=== PATIENT | female | born 1975 | race Caucasian/White ===

== ENCOUNTER 2024-04-23 13:27 | Inpatient (IN) | payer OTHER ==
--- NOTE | 2024-04-23 14:13 | ED ---
General Adult HPI - General Chief complaint: Shortness of Breath Stated complaint: Hypotension,Hypoxia Time Seen by Provider: 04/23/24 13:47 Source: patient, EMS, RN notes reviewed, old records reviewed Mode of arrival: EMS Limitations: altered mental status - History of Present Illness Initial comments: 48-year-old female presents from the [place] [facility] with hypoxia, lethargy, hypotension. History is limited. 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 She apparently was hypoxic and has had issues with chronic respiratory failure in the past. Patient herself does report cough. She denies pain complaints. Patient is bedbound at baseline. No reported fever. - Related Data Allergies Allergy/AdvReac Type Severity Reaction Status Date / Time egg Allergy Unknown Verified 04/23/24 13:45 morphine Allergy Unknown Verified 04/23/24 13:45 onion Allergy Unknown Verified 04/23/24 13:45 Review of Systems ROS Statement: Those systems with pertinent positive or pertinent negative responses have been documented in the HPI. ROS Other: All systems not noted in ROS Statement are negative. Past Medical History Past Medical History: Diabetes Mellitus, Respiratory Disorder, Thyroid Disorder Additional Past Medical History / Comment(s): Type 2 Diabetes, Hypothyrodism, Peripheral Vascular Disease, Cellulitis of right lower limb, Acute & Chronic Hypoxia, Chronic respiratory failure (3.5L Oxygen baseline) History of Any Multi-Drug Resistant Organisms: None Reported Past Surgical History: Orthopedic Surgery Additional Past Surgical History / Comment(s): Left leg acquired absence above knee Past Psychological History: No Psychological Hx Reported Smoking Status: Former smoker Past Alcohol Use History: None Reported Past Drug Use History: None Reported Course Vital Signs 04/23/24 04/23/24 04/23/24 13:33 14:25 14:27 Temperature 97.5 F L Pulse Rate 99 Respiratory 28 H Rate Blood Pressure 128/86 O2 Sat by Pulse 98 84 L 71 L Oximetry Fraction of Inspired Oxygen (FIO2) 04/23/24 04/23/24 04/23/24 14:29 14:30 14:33 Temperature Pulse Rate 102 H Respiratory 28 H 30 H Rate Blood Pressure 123/72 O2 Sat by Pulse 91 L 94 L Oximetry Fraction of Inspired Oxygen (FIO2) 04/23/24 04/23/24 04/23/24 14:54 15:10 15:12 Temperature 97.6 F Pulse Rate 105 H 107 H 105 H Respiratory 26 H Rate Blood Pressure 110/69 O2 Sat by Pulse 92 L Oximetry Fraction of Inspired Oxygen (FIO2) 04/23/24 15:26 Temperature Pulse Rate Respiratory Rate Blood Pressure O2 Sat by Pulse Oximetry Fraction of 50 Inspired Oxygen (FIO2) Medical Decision Making - Medical Decision Making Was pt. sent in by a medical professional or institution (, JODY, IRONWORKER APPRENTICE, urgent care, hospital, or [place] [facility]...) When possible be specific @ -Symptoms from the [place] [facility] for hypoxia Did you speak to anyone other than the patient for history (EMS, parent, family, police, friend...)? What history was obtained from this source @ -No Did you review nursing and triage notes (agree or disagree)? Why? @ -I reviewed and agree with nursing and triage notes Were old charts reviewed (outside hosp., previous admission, EMS record, old EKG , old radiological studies, urgent care reports/EKG's, [place] [facility] records)? Report findings @ -No old charts were reviewed Differential Dyspnea: Coronary syndrome, arrhythmia, tamponade, asthma, COPD, pulmonary embolism, pneumonia, pneumothorax, pulmonary effusion, anaphylaxis, diabetic ketoacidosis, flailed chest, pulmonary contusion, diaphragmatic rupture, anemia, neuromuscular, this is not meant to be an all-inclusive list. EKG interpreted by me (3pts min.). @Sinus tachycardia rate of 101, LA interval 146, QRS duration 101, QTc [address] segment elevation X-rays interpreted by me (1pt min.). @Large cardiomegaly and left-sided effusion on single view chest x-ray, limited by body habitus CT interpreted by me (1pt min.). @ -None done U/S interpreted by me (1pt. min.). @ -None done What testing was considered but not performed or refused? (CT, X-rays, U/S, labs)? Why? @ -None What meds were considered but not given or refused? Why? @ -None Did you discuss the management of the patient with other professionals (professionals i.e. , JODY, IRONWORKER APPRENTICE, lab, RT, psych nurse, case management social worker, state epidemiologist, teacher, strategic debriefing officer, nurse case management)? Give summary @ -[Yes, EM and cardiology Dr. Silva Was smoking cessation discussed for >3mins.? @ -No Was critical care preformed (if so, how long)? @ -Yes, 35 minutes Were there social determinants of health that impacted care today? How? (Homel essness, low income, unemployed, alcoholism, drug addiction, transportation, low edu. Level, literacy, decrease access to med. care, group home, rehab)? @ -No Was there de-escalation of care discussed even if they declined (Discuss DNR or withdrawal of care, Hospice)? DNR status @ -No What co-morbidities impacted this encounter? (DM, HTN, Smoking, COPD, CAD, Cancer, CVA, ARF, Chemo, Hep., AIDS, mental health diagnosis, sleep apnea, morbid obesity)? @ -Diabetes, hypertension, CHF Was patient admitted / discharged? Hospital course, mention meds given and route, prescriptions, significant lab abnormalities, going to OR and other pertinent info. @ -48-year-old female with significant past medical history, bedbound, [facility] patient presenting with hypoxia. Patient has very poor ventilation and concern for obesity associated hypoventilation. She requires significant supplemental oxygen at the onset of evaluation and is ultimately placed on BiPAP for respiratory support. She has hypoxia with hypercapnia. Additionally she has chest x-ray evidence of CHF with a significantly elevated BNP. And an elevated troponin. She is placed on heparin for the elevated troponin and concern for non-ST segment elevated [place]. She is given Lasix as well as treatment for hyperkalemia in the emergency department. She will be continued on BiPAP for respiratory support. Cardiology placed on consult and they have been contacted. Echo has been ordered. Undiagnosed new problem with uncertain prognosis? @ -No Drug Therapy requiring intensive monitoring for toxicity (Heparin, Nitro, Insulin, Cardizem)? @ -No Were any procedures done? @ -No Diagnosis/symptom? @ -CHF, obesity associated hypoventilation, NSTEMI Acute, or Chronic, or Acute on Chronic? @ -Acute on chronic Uncomplicated (without systemic symptoms) or Complicated (systemic symptoms)? @Complicated Side effects of treatment? @ -No Exacerbation, Progression, or Severe Exacerbation? @ -No Poses a threat to life or bodily function? How? (Chest pain, [place], [place], pneumonia, PE, COPD, DKA, ARF, appy, cholecystitis, CVA, Diverticulitis, Homicidal, Suicidal, threat to staff... and all critical care pts) @ -Yes, CHF, NSTEMI, respiratory failure - Lab Data Result diagrams: 04/23/24 14:26 04/23/24 14:26 Lab Results 04/23/24 04/23/24 04/23/24 Range/Units 14:26 14:26 14:26 WBC 9.7 (3.8-10.6) k/uL RBC 3.12 L (3.80-5.40) m/uL Hgb 10.2 L (11.4-16.0) gm/dL Hct 33.7 L (34.0-46.0) % MCV 108.0 H (80.0-100.0) fL MCH 32.5 (25.0-35.0) pg MCHC 30.1 L (31.0-37.0) g/dL RDW 19.0 H (11.5-15.5) % Plt Count 273 (150-450) k/uL MPV 7.5 Neutrophils % (Manual) 78 % Band Neuts % (Manual) 2 % Lymphocytes % (Manual) 9 % Monocytes % (Manual) 10 % Eosinophils % (Manual) 1 % Basophils % (Manual) 1 % Metamyelocytes % 1 % Neutrophils # (Manual) 7.70 (1.3-7.7) k/uL Lymphocytes # (Manual) 0.87 L (1.0-4.8) k/uL Monocytes # (Manual) 0.97 (0-1.0) k/uL Eosinophils # (Manual) 0.10 (0-0.7) k/uL Basophils # (Manual) 0.10 (0-0.2) k/uL Metamyelocytes # (Man) 0.10 H (0) k/uL Nucleated RBCs 3 H (0-0) /100 WBC Manual Slide Review Performed Hypochromasia Marked Poikilocytosis Slight Anisocytosis Slight Macrocytosis Marked A PT 12.0 (10.0-12.5) sec INR 1.1 (<1.2) APTT 22.4 (22.0-30.0) sec VBG pH (7.31-7.41) VBG pCO2 (37-51) mmHg VBG HCO3 (24-28) mmol/L Sodium 136 L (137-145) mmol/L Potassium 7.0 H* (3.5-5.1) mmol/L Chloride 102 (98-107) mmol/L Carbon Dioxide 27 (22-30) mmol/L Anion Gap 7 mmol/L BUN 9 (7-17) mg/dL Creatinine 0.90 (0.52-1.04) mg/dL Est GFR (CKD-EPI)AfAm 89 (>60 ml/min/1.73 sqM) Est GFR (CKD-EPI)NonAf 77 (>60 ml/min/1.73 sqM) Glucose 126 H (74-99) mg/dL Plasma Lactic Acid Calixto (0.7-2.0) mmol/L Calcium 9.8 (8.4-10.2) mg/dL Magnesium 1.9 (1.6-2.3) mg/dL Total Bilirubin 0.4 (0.2-1.3) mg/dL AST 47 H (14-36) U/L ALT 50 H (4-34) U/L Alkaline Phosphatase 98 (38-126) U/L Troponin I (0.000-0.034) ng/mL NT-Pro-B Natriuret Pep 75955 pg/mL Total Protein 7.4 (6.3-8.2) g/dL Albumin 4.1 (3.5-5.0) g/dL Influenza Type A (PCR) (Not Detectd) Influenza Type B (PCR) (Not Detectd) RSV (PCR) (Not Detectd) SARS-CoV-2 (PCR) (Not Detectd) 04/23/24 04/23/24 04/23/24 Range/Units 14:26 14:26 14:26 WBC (3.8-10.6) k/uL RBC (3.80-5.40) m/uL Hgb (11.4-16.0) gm/dL Hct (34.0-46.0) % MCV (80.0-100.0) fL MCH (25.0-35.0) pg MCHC (31.0-37.0) g/dL RDW (11.5-15.5) % Plt Count (150-450) k/uL MPV Neutrophils % (Manual) % Band Neuts % (Manual) % Lymphocytes % (Manual) % Monocytes % (Manual) % Eosinophils % (Manual) % Basophils % (Manual) % Metamyelocytes % % Neutrophils # (Manual) (1.3-7.7) k/uL Lymphocytes # (Manual) (1.0-4.8) k/uL Monocytes # (Manual) (0-1.0) k/uL Eosinophils # (Manual) (0-0.7) k/uL Basophils # (Manual) (0-0.2) k/uL Metamyelocytes # (Man) (0) k/uL Nucleated RBCs (0-0) /100 WBC Manual Slide Review Hypochromasia Poikilocytosis Anisocytosis Macrocytosis PT (10.0-12.5) sec INR (<1.2) APTT (22.0-30.0) sec VBG pH 7.20 L* (7.31-7.41) VBG pCO2 72 H* (37-51) mmHg VBG HCO3 28 (24-28) mmol/L Sodium (137-145) mmol/L Potassium (3.5-5.1) mmol/L Chloride (98-107) mmol/L Carbon Dioxide (22-30) mmol/L Anion Gap mmol/L BUN (7-17) mg/dL Creatinine (0.52-1.04) mg/dL Est GFR (CKD-EPI)AfAm (>60 ml/min/1.73 sqM) Est GFR (CKD-EPI)NonAf (>60 ml/min/1.73 sqM) Glucose (74-99) mg/dL Plasma Lactic Acid Calixto 1.7 (0.7-2.0) mmol/L Calcium (8.4-10.2) mg/dL Magnesium (1.6-2.3) mg/dL Total Bilirubin (0.2-1.3) mg/dL AST (14-36) U/L ALT (4-34) U/L Alkaline Phosphatase (38-126) U/L Troponin I 0.177 H* (0.000-0.034) ng/mL NT-Pro-B Natriuret Pep pg/mL Total Protein (6.3-8.2) g/dL Albumin (3.5-5.0) g/dL Influenza Type A (PCR) (Not Detectd) Influenza Type B (PCR) (Not Detectd) RSV (PCR) (Not Detectd) SARS-CoV-2 (PCR) (Not Detectd) 04/23/24 Range/Units 14:26 WBC (3.8-10.6) k/uL RBC (3.80-5.40) m/uL Hgb (11.4-16.0) gm/dL Hct (34.0-46.0) % MCV (80.0-100.0) fL MCH (25.0-35.0) pg MCHC (31.0-37.0) g/dL RDW (11.5-15.5) % Plt Count (150-450) k/uL MPV Neutrophils % (Manual) % Band Neuts % (Manual) % Lymphocytes % (Manual) % Monocytes % (Manual) % Eosinophils % (Manual) % Basophils % (Manual) % Metamyelocytes % % Neutrophils # (Manual) (1.3-7.7) k/uL Lymphocytes # (Manual) (1.0-4.8) k/uL Monocytes # (Manual) (0-1.0) k/uL Eosinophils # (Manual) (0-0.7) k/uL Basophils # (Manual) (0-0.2) k/uL Metamyelocytes # (Man) (0) k/uL Nucleated RBCs (0-0) /100 WBC Manual Slide Review Hypochromasia Poikilocytosis Anisocytosis Macrocytosis PT (10.0-12.5) sec INR (<1.2) APTT (22.0-30.0) sec VBG pH (7.31-7.41) VBG pCO2 (37-51) mmHg VBG HCO3 (24-28) mmol/L Sodium (137-145) mmol/L Potassium (3.5-5.1) mmol/L Chloride (98-107) mmol/L Carbon Dioxide (22-30) mmol/L Anion Gap mmol/L BUN (7-17) mg/dL Creatinine (0.52-1.04) mg/dL Est GFR (CKD-EPI)AfAm (>60 ml/min/1.73 sqM) Est GFR (CKD-EPI)NonAf (>60 ml/min/1.73 sqM) Glucose (74-99) mg/dL Plasma Lactic Acid Calixto (0.7-2.0) mmol/L Calcium (8.4-10.2) mg/dL Magnesium (1.6-2.3) mg/dL Total Bilirubin (0.2-1.3) mg/dL AST (14-36) U/L ALT (4-34) U/L Alkaline Phosphatase (38-126) U/L Troponin I (0.000-0.034) ng/mL NT-Pro-B Natriuret Pep pg/mL Total Protein (6.3-8.2) g/dL Albumin (3.5-5.0) g/dL Influenza Type A (PCR) Not Detected (Not Detectd) Influenza Type B (PCR) Not Detected (Not Detectd) RSV (PCR) Not Detected (Not Detectd) SARS-CoV-2 (PCR) Not Detected (Not Detectd) Critical Care Time Critical Care Time: Yes Total Critical Care Time: 35 Disposition Clinical Impression: Congestive heart failure, NSTEMI (non-ST elevated myocardial infarction), Respiratory failure Disposition: ADMITTED IP TO THIS HOSP Condition: Serious Is patient prescribed a controlled substance at d/c from ED?: No Referrals: Luz Howard DO [Primary Care Provider] - 1-2 days Time of Disposition: 15:33
[2024-04-23 14:39] LABS: Anisocytosis Slight; HCT 33.7 % (34.0-46.0); HGB 10.2 gm/dL (11.4-16.0); Hypochromasia Marked; MCH 32.5 pg (25.0-35.0); MCHC 30.1 g/dL (31.0-37.0); Macrocytosis Marked; Mean Platelet Volume 7.5; Platelet Count 273 k/uL (150-450); Poikilocytosis Slight; RBC 3.12 m/uL (3.80-5.40)
[2024-04-23 14:43] LABS: VBG PH 7.2 (7.31-7.41)
[2024-04-23] MEDS: ALBUTEROL NEBULIZED 2.5 MG/3 ML INHALATION STA (14:53)
[2024-04-23 14:54] LABS: ALT 50 U/L (4-34); AST 47 U/L (14-36); African American GFR (CKD) 89 (>60 ml/min/1.73 sqM); Albumin 4.1 g/dL (3.5-5.0); Alkaline Phosphatase 98 U/L (38-126); Anion Gap 7 mmol/L; Blood Urea Nitrogen 9 mg/dL (7-17); Calcium 9.8 mg/dL (8.4-10.2); Carbon Dioxide 27 mmol/L (22-30); Chloride 102 mmol/L (98-107); Glucose 126 mg/dL (74-99); Magnesium 1.9 mg/dL (1.6-2.3); Non-African American GFR(CKD) 77 (>60 ml/min/1.73 sqM); Sodium 136 mmol/L (137-145); Total Bilirubin 0.4 mg/dL (0.2-1.3); Total Protein 7.4 g/dL (6.3-8.2)
[2024-04-23] MEDS: IPRATROPIUM 0.5 MG/2.5 ML NEBU INHALATION STA (14:54)
[2024-04-23 14:55] LABS: INR 1.1 (<1.2); Partial Thromboplastin Time 22.4 sec (22.0-30.0)
[2024-04-23 15:02] LABS: NT-Pro-B-Type Natriuretic Pept 20000 pg/mL
[2024-04-23] MEDS: SODIUM CHLORIDE 0.9% 500 ML 500 ML IV STA (15:02)
--- NOTE | 2024-04-23 15:06 | XR ---
EXAMINATION TYPE: XR chest 1V portable DATE OF EXAM: 04/23/2024 COMPARISON: NONE CLINICAL INDICATION: Female, 48 years old with history of angelo; , TECHNIQUE: XR chest 1V portable views of the chest. FINDINGS: Markedly enlarged and there is a diffuse interstitial pattern with bilateral infiltrate and pleural e ffusion. Osseous structures grossly intact. No pneumothorax. IMPRESSION: 1. Cardiomegaly correlate for mild CHF with small lateral effusions. Underlying pneumonia not exclude d. [facility], , 04/23/2024 3:03 PM
[2024-04-23 15:15] LABS: Band Neutrophils % 2 %; Lymphocytes # (M) 0.87 k/uL (1.0-4.8); Metamyelocytes % 1 %; Monocytes # (M) 0.97 k/uL (0-1.0); Neutrophils % (M) 78 %; Nucleated Red Blood Cells 3 /100 WBC (0-0); Total Cells Counted 200; WBC 9.7 k/uL (3.8-10.6)
[2024-04-23] MEDS ORDERED: NALOXONE 0.4 MG/ML 1 ML VIAL IV PRN (15:28)
[2024-04-23] MEDS: FUROSEMIDE 10 MG/ML 4 ML VIAL IV STA (15:54)
[2024-04-23] MEDS: DEXTROSE 50% SYRINGE 50 ML IVP ONE (15:59)
[2024-04-23] MEDS: INSULIN REGULAR 100 UNIT/ML VIAL (IV) IV ONE ×2 (16:05→22:52)
[2024-04-23] MEDS: CALCIUM GLUCONATE IN NACL 1 GM in SALINE 1 100ML.BAG IVPB ONE (16:07)
[2024-04-23] MEDS: HEPARIN SODIUM 1,000 UN/ML (10ML VL) IV ONE (16:27)
[2024-04-23] MEDS: HEPARIN SOD,PORK IN 0.45% NACL 25,000 UNIT in 0.45% NACL 1 250ML.BAG IV SCH (16:29)
[2024-04-23] MEDS: SODIUM ZIRCONIUM CYCLOSILICATE 10 GM PACKET PO ONE (17:07)
[2024-04-23] MEDS: FUROSEMIDE 10 MG/ML 4 ML VIAL IV SCH (21:10)
[2024-04-23] MEDS: HYDROcodone/APAP 5-325MG 1 EACH TAB PO PRN (21:10)
[2024-04-23] MEDS: DEXTROSE 50% SYRINGE 50 ML IVP STA (22:52)
[2024-04-23] MEDS: ONDANSETRON 4 MG/2 ML VIAL IVP PRN (22:54)
[2024-04-23] MEDS: HYDROmorphone 0.5 MG/0.5 ML SYRINGE IVP PRN (22:55)
[2024-04-24] MEDS: HEPARIN SODIUM 1,000 UN/ML (10ML VL) IV PRN (01:53)
[2024-04-24] MEDS: HYDROmorphone 0.5 MG/0.5 ML SYRINGE IVP PRN (04:10)
[2024-04-24 08:12] LABS: INR 1.2 (<1.2); Prothrombin Time 12.6 sec (10.0-12.5)
[2024-04-24 08:16] LABS: Partial Thromboplastin Time 21.6 sec (22.0-30.0)
[2024-04-24 08:17] LABS: Anisocytosis Slight; HCT 31.8 % (34.0-46.0); HGB 9.5 gm/dL (11.4-16.0); Hypochromasia Marked; MCH 32.1 pg (25.0-35.0); MCHC 29.8 g/dL (31.0-37.0); MCV 107.6 fL (80.0-100.0); Macrocytosis Marked; Mean Platelet Volume 7.8; Platelet Count 231 k/uL (150-450); Poikilocytosis Slight; RBC 2.96 m/uL (3.80-5.40); RDW 19.2 % (11.5-15.5)
[2024-04-24 08:19] LABS: ALT 40 U/L (4-34); AST 40 U/L (14-36); African American GFR (CKD) >90 (>60 ml/min/1.73 sqM); Albumin 3.7 g/dL (3.5-5.0); Alkaline Phosphatase 89 U/L (38-126); Anion Gap 10 mmol/L; Blood Urea Nitrogen 10 mg/dL (7-17); Calcium 9.6 mg/dL (8.4-10.2); Carbon Dioxide 27 mmol/L (22-30); Chloride 100 mmol/L (98-107); Glucose 101 mg/dL (74-99); Non-African American GFR(CKD) 85 (>60 ml/min/1.73 sqM); Potassium 5.1 mmol/L (3.5-5.1); Sodium 137 mmol/L (137-145); Total Bilirubin 0.3 mg/dL (0.2-1.3); Total Protein 6.7 g/dL (6.3-8.2)
[2024-04-24] MEDS: ACETAMINOPHEN TAB 325 MG TAB PO PRN (08:42)
[2024-04-24] MEDS ORDERED: DEXTROSE 50% SYRINGE 50 ML IVP PRN ×2 (09:24)
[2024-04-24] MEDS ORDERED: NON FORMULARY DRUG (Acetaminophen [Tylenol 8 Hour] 650 MG Tablet) PO PRN (09:24)
[2024-04-24 09:30] LABS: Band Neutrophils % 1 %; Basophils # (M) 0.08 k/uL (0-0.2); Eosinophils # (M) 0.38 k/uL (0-0.7); Lymphocytes # (M) 1.29 k/uL (1.0-4.8); Metamyelocytes # (M) 0.15 k/uL (0); Metamyelocytes % 2 %; Monocytes # (M) 0.76 k/uL (0-1.0); Myelocytes # (M) 0.08 k/uL (0); Myelocytes % 1 %; Neutrophils % (M) 65 %; Nucleated Red Blood Cells 3 /100 WBC (0-0); Total Cells Counted 200; WBC 7.6 k/uL (3.8-10.6)
[2024-04-24 09:31] LABS: Polychromasia Present
[2024-04-24 10:54] LABS: Glucose,Whole Blood 136 mg/dL (70-110)
--- NOTE | 2024-04-24 12:05 | P.CNPUL ---
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 The patient was admitted on February 11, 2024 to [facility] and was 47 days there most of which was in the intensive care unit. She was then transferred to [facility] in [place] for 2-1/2 weeks. She then was readmitted and intubated for 14 days and had a trachostomy tube placement for 5 days and it was subsequently dislodged and left out according to the patient's sister who is at the bedside. From there she was transferred to [facility]. She was brought here to the emergency room yesterday after being found hypoxic, lethargic and hypotensive. She did have episodes of vomiting as well. Chest x- ray reveals cardiomegaly with mild congestive heart failure and small bilateral effusions. White count 7.6. Hemoglobin 9.5. Platelets 231. INR 1.2. D-dimer 1.19. Sodium 137. Initial potassium 7.0. Currently 5.1. She did receive Lokelma. Bicarb 27. BUN 10. Creatinine 0.83. Glucose 101. AST 40. ALT 40. Troponin 0.177, 0.226, 0.244. proBNP 20,000. Viral screen is negative. She has been initiated on a heparin drip. Lasix 40 mg IV every 12 hours. She is seen today in consultation in the emergency department. She has more awake and alert. She does have some nausea and vomiting. She was initiated on a BiPAP 14/6 and 50% FiO2. Slightly tachycardic. Blood pressure stable. Temperature 99.9 axillary. Procalcitonin pending. She will be initiated on Zosyn for now. Review of Systems REVIEW OF SYSTEMS: CONSTITUTIONAL: Denies any recent significant weight loss or weight gain. EYES: Denies change in vision. EARS, NOSE, MOUTH, THROAT: Denies headaches, denies sore throat. CARDIOVASCULAR: Denies chest pain, palpitations or syncopal episodes. RESPIRATORY: Positive for shortness of breath, cough, congestion no hemoptysis. GASTROINTESTINAL: Positive for nausea and vomiting. GENITOURINARY: Denies hematuria, denies infections. MUSKULOSKELETAL: Denies pain, denies swelling. INTEGUMENTARY: Denies rash, denies eczema. NEUROLOGICAL: Denies recent memory loss, no recent seizure activity. PSYCHIATRIC: Denies anxiety, denies depression. HEMATOLOGIC/LYMPHATIC: Denies anemia, denies enlarged lymph nodes. Past Medical History Past Medical History: Diabetes Mellitus, Respiratory Disorder, Thyroid Disorder Additional Past Medical History / Comment(s): Type 2 Diabetes, Hypothyrodism, Peripheral Vascular Disease, Cellulitis of right lower limb, Acute & Chronic Hypoxia, Chronic respiratory failure (3.5L Oxygen baseline) History of Any Multi-Drug Resistant Organisms: None Reported Past Surgical History: Orthopedic Surgery Additional Past Surgical History / Comment(s): Left leg acquired absence above knee Past Psychological History: No Psychological Hx Reported Smoking Status: Former smoker Past Alcohol Use History: None Reported Past Drug Use History: None Reported Medications and Allergies Home Medications Medication Instructions Recorded Confirmed Type ALPRAZolam [Xanax] 0.25 mg PO BID PRN 04/23/24 04/23/24 History Acetaminophen [Tylenol 8 Hour] 650 mg PO Q6H PRN 04/23/24 04/23/24 History Antifungal Powder(Unknown) 1 applic TOPICAL BID 04/23/24 04/23/24 History Aspirin 81 mg PO HS 04/23/24 04/23/24 History Atorvastatin [Lipitor] 20 mg PO HS@199904/23/24 04/23/24 History Insulin Glargine [Lantus Vial] 10 unit SQ HS 04/23/24 04/23/24 History Levothyroxine Sodium [Synthroid] 137 mcg PO DAILY@0500 04/23/24 04/23/24 History Melatonin 3 mg PO HS@199904/23/24 04/23/24 History Naloxone HCl 0.4 mg IM ONCE PRN 04/23/24 04/23/24 History Naloxone HCl [Narcan] 4 mg NASAL ONCE PRN 04/23/24 04/23/24 History OLANZapine ODT [ZyPREXA ZYDIS] 5 mg PO HS 04/23/24 04/23/24 History Omeprazole [PriLOSEC] 20 mg PO HS@199904/23/24 04/23/24 History Ondansetron [Zofran] 4 mg PO Q6H PRN 04/23/24 04/23/24 History PARoxetine [Paxil] 20 mg PO DAILY 04/23/24 04/23/24 History Potassium Chloride ER [K-Dur 20] 20 meq PO HS 04/23/24 04/23/24 History Simethicone [Simethicone Chew] 80 mg PO ACHS 04/23/24 04/23/24 History Sulfamethox-Tmp 800-160Mg [Bactrim 1 tab PO BID@0700,1900 04/23/24 04/23/24 History DS 800-160 mg] hydrOXYzine pamoate [Vistaril] 25 mg PO TID PRN 04/23/24 04/23/24 History lamoTRIgine [LaMICtal] 50 mg PO BID 04/23/24 04/23/24 History oxyCODONE HCL [OxyIR] 5 mg PO Q6H PRN 04/23/24 04/23/24 History tiZANidine [Zanaflex] 4 mg PO TID@0700,1300,1900 04/23/24 04/23/24 History traMADol HCL 50 mg PO Q6H PRN 04/23/24 04/23/24 History Allergies Allergy/AdvReac Type Severity Reaction Status Date / Time egg Allergy Unknown Verified 04/23/24 16:42 morphine Allergy Unknown Verified 04/23/24 16:42 onion Allergy Unknown Verified 04/23/24 16:42 Physical Exam Vitals: Vital Signs Temp Pulse Resp BP Pulse Ox FiO2 04/24/24 07:48 50 04/24/24 07:41 99.9 F H 110 H 16 112/62 98 04/24/24 06:27 112 H 16 109/48 97 50 04/24/24 05:40 112 H 16 115/54 96 50 04/24/24 05:26 50 04/24/24 03:11 106 H 16 109/63 98 50 04/24/24 02:08 111 H 16 100/43 96 04/24/24 01:14 112 H 16 116/52 95 04/24/24 00:58 50 04/24/24 00:22 120 H 18 109/62 97 04/23/24 21:58 109 H 16 133/72 90 L 04/23/24 21:08 50 04/23/24 20:09 108 H 16 118/64 93 L 04/23/24 18:10 98.9 F 105 H 20 129/76 98 04/23/24 17:04 98.7 F 103 H 14 122/73 92 L 04/23/24 16:31 102 H 16 117/77 92 L 04/23/24 16:10 98.9 F 101 H 16 118/73 92 L 04/23/24 16:04 60 04/23/24 15:53 87 L 04/23/24 15:26 50 04/23/24 15:12 97.6 F 105 H 26 H 110/69 92 L 04/23/24 15:10 107 H 04/23/24 14:54 105 H 04/23/24 14:33 30 H 04/23/24 14:30 102 H 28 H 123/72 94 L 04/23/24 14:29 91 L 04/23/24 14:27 71 L 04/23/24 14:25 84 L 04/23/24 13:33 97.5 F L 99 28 H 128/86 98 Intake and Output 04/23/24 04/24/24 04/24/24 22:59 06:59 14:59 Intake Total 94.176 93.901 Balance 94.176 93.901 Intake: Intake, IV Titration 94.176 93.901 Amount Heparin Sod,Pork in 0.45% 94.176 93.901 NaCl 25,000 unit In 0.45 % NaCl 1 250ml.bag @ 7. 474 UNITS/KG/HR 10.001 mls/hr IV .Q24H [facility] Rx#: [id number] GENERAL EXAM: Alert, weak, morbidly obese 48-year-old female, on BiPAP 14/6 and 50% FiO2, comfortable in no apparent distress. HEAD: Normocephalic. EYES: Normal reaction of pupils, equal size. NOSE: Clear with pink turbinates. THROAT: No erythema or exudates. NECK: No masses, no JVD. CHEST: No chest wall deformity. LUNGS: Equal air entry with few scattered rhonchi bilaterally. CVS: S1 and S2 normal with no audible murmur, regular rhythm. ABDOMEN: No hepatosplenomegaly, normal bowel sounds, no guarding or rigidity. SPINE: No scoliosis or deformity SKIN: No rashes CENTRAL NERVOUS SYSTEM: No focal deficits, tone is normal in all 4 extremities. EXTREMITIES: Left paupu-wfq-tbbg amputation. There is 1-2+ peripheral edema. No clubbing, no cyanosis. Peripheral pulses are intact. Results - Laboratory Findings CBC and BMP: 04/24/24 07:24 04/24/24 07:24 PT/INR, D-dimer PT 12.6 sec (10.0-12.5) H 04/24/24 07:24 INR 1.2 (<1.2) H 04/24/24 07:24 D-Dimer 1.19 mg/L FEU (<0.60) H 04/24/24 07:24 Abnormal lab findings: Abnormal Labs 04/23/24 04/23/24 04/23/24 14:26 14:26 14:26 RBC 3.12 L Hgb 10.2 L Hct 33.7 L MCV 108.0 H MCHC 30.1 L RDW 19.0 H Lymphocytes # (Manual) 0.87 L Metamyelocytes # (Man) 0.10 H Myelocytes # (Manual) Nucleated RBCs 3 H Macrocytosis Marked A PT INR APTT D-Dimer VBG pH VBG pCO2 Sodium 136 L Potassium 7.0 H* Glucose 126 H POC Glucose (mg/dL) AST 47 H ALT 50 H Troponin I 0.177 H* 04/23/24 04/23/24 04/23/24 14:26 17:28 21:01 RBC Hgb Hct MCV MCHC RDW Lymphocytes # (Manual) Metamyelocytes # (Man) Myelocytes # (Manual) Nucleated RBCs Macrocytosis PT INR APTT D-Dimer VBG pH 7.20 L* VBG pCO2 72 H* Sodium Potassium 6.1 H* Glucose POC Glucose (mg/dL) AST ALT Troponin I 0.226 H* 04/23/24 04/23/24 04/24/24 21:01 21:01 07:24 RBC 2.96 L Hgb 9.5 L Hct 31.8 L MCV 107.6 H MCHC 29.8 L RDW 19.2 H Lymphocytes # (Manual) Metamyelocytes # (Man) 0.15 H Myelocytes # (Manual) 0.08 H Nucleated RBCs 3 H Macrocytosis Marked A PT INR APTT 19.8 L D-Dimer VBG pH VBG pCO2 Sodium Potassium Glucose POC Glucose (mg/dL) AST ALT Troponin I 0.244 H* 04/24/24 04/24/24 04/24/24 07:24 07:24 07:24 RBC Hgb Hct MCV MCHC RDW Lymphocytes # (Manual) Metamyelocytes # (Man) Myelocytes # (Manual) Nucleated RBCs Macrocytosis PT 12.6 H INR 1.2 H APTT 21.6 L D-Dimer 1.19 H VBG pH VBG pCO2 Sodium Potassium Glucose 101 H POC Glucose (mg/dL) AST 40 H ALT 40 H Troponin I 04/24/24 10:51 RBC Hgb Hct MCV MCHC RDW Lymphocytes # (Manual) Metamyelocytes # (Man) Myelocytes # (Manual) Nucleated RBCs Macrocytosis PT INR APTT D-Dimer VBG pH VBG pCO2 Sodium Potassium Glucose POC Glucose (mg/dL) 136 H AST ALT Troponin I - Diagnostic Findings Chest x-ray: image reviewed Assessment and Plan Assessment: Acute on chronic hypoxemic respiratory failure secondary to suspected aspiration and suspected diastolic versus systolic congestive heart failure. proBNP 20,000. Procalcitonin pending Troponin leak, currently on a heparin drip Nausea and vomiting of unclear etiology Hyperkalemia requiring Lokelma, currently improved at 5.1 Anemia, current hemoglobin 9.5 Morbid obesity and suspected obesity/hypoventilation syndrome/obstructive sleep apnea Admitted February 11, 2024 with a 47-day length of stay at [facility] at one point intubated for 14 days, status post tracheostomy tube x 5 days which became possibly dislodged and remains out. 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 approximately 5 years ago Bipolar disorder Diabetes mellitus Hypothyroidism Hyperlipidemia Plan: The patient was seen and evaluated Chest x-ray, labs and medications reviewed Initiated on Zosyn Procalcitonin pending Currently on BiPAP 14/6 and 50% FiO2 Titrate the FiO2 as tolerated Add DuoNeb inhalations 4 times daily and as needed Continue Lasix 40 mg IV every 12 hours Remains on a heparin drip Cardiology consulted We will continue to follow and make further recommendations based on her clinical status I have personally seen and examined the patient, performed the documentation and the assessment and plan as written. Number of minutes spent on the visit: 20 Dictation was produced using [employer] dictation software. Please excuse any grammatical, word or spelling errors.
--- NOTE | 2024-04-24 12:05 | P.HPIM ---
History of Present Illness H&P Date: 04/24/24 History of present illness; patient is a 48-year-old lady with past medical history significant for respiratory failure, obesity ventilation syndrome, who is a resident of a senior care facility brought to the ER because of worsening shortness of breath. Patient apparently is bedbound at baseline. Patient was complaining of shortness of breath. Patient also complaining of cough there was no complaint of chest pain. There is no complaint of orthopnea or PND. There is no complaint of fever or chills. Because of shortness of breath, patient was brought to the ER Initial lab work done in the ER showed WBC 9.7, hemoglobin 10.2, platelet count 273, VBG shows pH 7.2, pCO2 72, bicarb 28, sodium 136, potassium 7, BUN 9, creatinine 0.90, glucose 126, troponin 0.177 Influenza A not detected Influenza B not detected RSV not detected COVID-19 not detected EKG done in the ER showed heart rate of 101, no ST segment elevation or depression seen, no T-wave inversions seen. Chest x-ray done in the ER showed cardiomegaly with mild CHF with small lateral pleural effusions Patient admitted to internal medicine service REVIEW OF SYSTEMS: CONSTITUTIONAL: No fever, no malaise, no fatigue. HEENT: No recent visual problems or hearing problems. Denied any sore throat. CARDIOVASCULAR: As mentioned above PULMONARY: As mentioned above GASTROINTESTINAL: No diarrhea, no nausea, no vomiting, no abdominal pain. NEUROLOGICAL: No headaches, no weakness, no numbness. HEMATOLOGICAL: Denies any bleeding or petechiae. GENITOURINARY: Denies any burning micturition, frequency, or urgency. MUSCULOSKELETAL/RHEUMATOLOGICAL: Denies any joint pain, swelling, or any muscle pain. ENDOCRINE: Denies any polyuria or polydipsia. The rest of the 14-point review of systems is negative. PHYSICAL EXAMINATION: GENERAL: The patient is alert , ill looking HEENT: Pupils are round and equally reacting to light. EOMI. No scleral icterus. No conjunctival pallor. Normocephalic, atraumatic. No pharyngeal erythema. No thyromegaly. CARDIOVASCULAR: S1 and S2 present. No murmurs, rubs, or gallops. PULMONARY: Jamel breath sounds at bases bilaterally, crackles audible ABDOMEN: Soft, nontender, nondistended, normoactive bowel sounds. No palpable organomegaly. 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 NEUROLOGICAL: Gross neurological examination did not reveal any focal deficits. SKIN: No rashes. Assessment and plan Acute hypoxemic hypercapnic respiratory failure Acute CHF Elevated troponin Hyperkalemia Obesity Hypothyroidism Hyperlipidemia Diabetes mellitus Monitor vital signs Monitor CBC Monitor CMP Continue telemetry monitoring Ordered serial troponin Ordered proBNP Ordered D-dimer Start patient on pharmacy dose heparin Ordered 2D echo Strict I's and O's, daily weights, start IV Lasix 40 g every 12 Hyperkalemia protocol initiated Cardiology consulted Pulmonology consult Labs and medication were reviewed.. Continue same treatment. Continue with symptomatic treatment. Resume home medication. Monitor labs and vitals. DVT and GI prophylaxis. Further recommendations as per clinical course of the patient Dictation was produced using [employer] dictation software. please excuse any grammatical, word or spelling errors. Past Medical History Past Medical History: Diabetes Mellitus, Respiratory Disorder, Thyroid Disorder Additional Past Medical History / Comment(s): Type 2 Diabetes, Hypothyrodism, Peripheral Vascular Disease, Cellulitis of right lower limb, Acute & Chronic Hypoxia, Chronic respiratory failure (3.5L Oxygen baseline) History of Any Multi-Drug Resistant Organisms: None Reported Past Surgical History: Orthopedic Surgery Additional Past Surgical History / Comment(s): Left leg acquired absence above knee Past Psychological History: No Psychological Hx Reported Smoking Status: Former smoker Past Alcohol Use History: None Reported Past Drug Use History: None Reported Medications and Allergies Home Medications Medication Instructions Recorded Confirmed Type ALPRAZolam [Xanax] 0.25 mg PO BID PRN 04/23/24 04/23/24 History Acetaminophen [Tylenol 8 Hour] 650 mg PO Q6H PRN 04/23/24 04/23/24 History Antifungal Powder(Unknown) 1 applic TOPICAL BID 04/23/24 04/23/24 History Aspirin 81 mg PO HS 04/23/24 04/23/24 History Atorvastatin [Lipitor] 20 mg PO HS@199904/23/24 04/23/24 History Insulin Glargine [Lantus Vial] 10 unit SQ HS 04/23/24 04/23/24 History Levothyroxine Sodium [Synthroid] 137 mcg PO DAILY@0500 04/23/24 04/23/24 History Melatonin 3 mg PO HS@199904/23/24 04/23/24 History Naloxone HCl 0.4 mg IM ONCE PRN 04/23/24 04/23/24 History Naloxone HCl [Narcan] 4 mg NASAL ONCE PRN 04/23/24 04/23/24 History OLANZapine ODT [ZyPREXA ZYDIS] 5 mg PO HS 04/23/24 04/23/24 History Omeprazole [PriLOSEC] 20 mg PO HS@199904/23/24 04/23/24 History Ondansetron [Zofran] 4 mg PO Q6H PRN 04/23/24 04/23/24 History PARoxetine [Paxil] 20 mg PO DAILY 04/23/24 04/23/24 History Potassium Chloride ER [K-Dur 20] 20 meq PO HS 04/23/24 04/23/24 History Simethicone [Simethicone Chew] 80 mg PO ACHS 04/23/24 04/23/24 History Sulfamethox-Tmp 800-160Mg [Bactrim 1 tab PO BID@0700,1900 04/23/24 04/23/24 History DS 800-160 mg] hydrOXYzine pamoate [Vistaril] 25 mg PO TID PRN 04/23/24 04/23/24 History lamoTRIgine [LaMICtal] 50 mg PO BID 04/23/24 04/23/24 History oxyCODONE HCL [OxyIR] 5 mg PO Q6H PRN 04/23/24 04/23/24 History tiZANidine [Zanaflex] 4 mg PO TID@0700,1300,1900 04/23/24 04/23/24 History traMADol HCL 50 mg PO Q6H PRN 04/23/24 04/23/24 History Allergies Allergy/AdvReac Type Severity Reaction Status Date / Time egg Allergy Unknown Verified 04/23/24 16:42 morphine Allergy Unknown Verified 04/23/24 16:42 onion Allergy Unknown Verified 04/23/24 16:42 Physical Exam Vitals: Vital Signs Temp Pulse Resp BP Pulse Ox FiO2 04/24/24 07:48 50 04/24/24 07:41 99.9 F H 110 H 16 112/62 98 04/24/24 06:27 112 H 16 109/48 97 50 04/24/24 05:40 112 H 16 115/54 96 50 04/24/24 05:26 50 04/24/24 03:11 106 H 16 109/63 98 50 04/24/24 02:08 111 H 16 100/43 96 04/24/24 01:14 112 H 16 116/52 95 04/24/24 00:58 50 04/24/24 00:22 120 H 18 109/62 97 04/23/24 21:58 109 H 16 133/72 90 L 04/23/24 21:08 50 04/23/24 20:09 108 H 16 118/64 93 L 04/23/24 18:10 98.9 F 105 H 20 129/76 98 04/23/24 17:04 98.7 F 103 H 14 122/73 92 L 04/23/24 16:31 102 H 16 117/77 92 L 04/23/24 16:10 98.9 F 101 H 16 118/73 92 L 04/23/24 16:04 60 04/23/24 15:53 87 L 04/23/24 15:26 50 04/23/24 15:12 97.6 F 105 H 26 H 110/69 92 L 04/23/24 15:10 107 H 04/23/24 14:54 105 H 04/23/24 14:33 30 H 04/23/24 14:30 102 H 28 H 123/72 94 L 04/23/24 14:29 91 L 04/23/24 14:27 71 L 04/23/24 14:25 84 L 04/23/24 13:33 97.5 F L 99 28 H 128/86 98 Intake and Output 04/23/24 04/24/24 04/24/24 22:59 06:59 14:59 Intake Total 94.176 93.901 Balance 94.176 93.901 Intake: Intake, IV Titration 94.176 93.901 Amount Heparin Sod,Pork in 0.45% 94.176 93.901 NaCl 25,000 unit In 0.45 % NaCl 1 250ml.bag @ 7. 474 UNITS/KG/HR 10.001 mls/hr IV .Q24H [facility] Rx#: [id number] Results CBC & Chem 7: 04/24/24 07:24 04/24/24 07:24 Labs: Abnormal Lab Results - Last 24 Hours (Table) 04/23/24 04/23/24 04/23/24 Range/Units 14:26 14:26 14:26 RBC 3.12 L (3.80-5.40) m/uL Hgb 10.2 L (11.4-16.0) gm/dL Hct 33.7 L (34.0-46.0) % MCV 108.0 H (80.0-100.0) fL MCHC 30.1 L (31.0-37.0) g/dL RDW 19.0 H (11.5-15.5) % Lymphocytes # (Manual) 0.87 L (1.0-4.8) k/uL Metamyelocytes # (Man) 0.10 H (0) k/uL Nucleated RBCs 3 H (0-0) /100 WBC Macrocytosis Marked A PT (10.0-12.5) sec INR (<1.2) APTT (22.0-30.0) sec VBG pH (7.31-7.41) VBG pCO2 (37-51) mmHg Sodium 136 L (137-145) mmol/L Potassium 7.0 H* (3.5-5.1) mmol/L Glucose 126 H (74-99) mg/dL AST 47 H (14-36) U/L ALT 50 H (4-34) U/L Troponin I 0.177 H* (0.000-0.034) ng/mL 04/23/24 04/23/24 04/23/24 Range/Units 14:26 17:28 21:01 RBC (3.80-5.40) m/uL Hgb (11.4-16.0) gm/dL Hct (34.0-46.0) % MCV (80.0-100.0) fL MCHC (31.0-37.0) g/dL RDW (11.5-15.5) % Lymphocytes # (Manual) (1.0-4.8) k/uL Metamyelocytes # (Man) (0) k/uL Nucleated RBCs (0-0) /100 WBC Macrocytosis PT (10.0-12.5) sec INR (<1.2) APTT (22.0-30.0) sec VBG pH 7.20 L* (7.31-7.41) VBG pCO2 72 H* (37-51) mmHg Sodium (137-145) mmol/L Potassium 6.1 H* (3.5-5.1) mmol/L Glucose (74-99) mg/dL AST (14-36) U/L ALT (4-34) U/L Troponin I 0.226 H* (0.000-0.034) ng/mL 04/23/24 04/23/24 04/24/24 Range/Units 21:01 21:01 07:24 RBC 2.96 L (3.80-5.40) m/uL Hgb 9.5 L (11.4-16.0) gm/dL Hct 31.8 L (34.0-46.0) % MCV 107.6 H (80.0-100.0) fL MCHC 29.8 L (31.0-37.0) g/dL RDW 19.2 H (11.5-15.5) % Lymphocytes # (Manual) (1.0-4.8) k/uL Metamyelocytes # (Man) (0) k/uL Nucleated RBCs (0-0) /100 WBC Macrocytosis Marked A PT (10.0-12.5) sec INR (<1.2) APTT 19.8 L (22.0-30.0) sec VBG pH (7.31-7.41) VBG pCO2 (37-51) mmHg Sodium (137-145) mmol/L Potassium (3.5-5.1) mmol/L Glucose (74-99) mg/dL AST (14-36) U/L ALT (4-34) U/L Troponin I 0.244 H* (0.000-0.034) ng/mL 04/24/24 04/24/24 Range/Units 07:24 07:24 RBC (3.80-5.40) m/uL Hgb (11.4-16.0) gm/dL Hct (34.0-46.0) % MCV (80.0-100.0) fL MCHC (31.0-37.0) g/dL RDW (11.5-15.5) % Lymphocytes # (Manual) (1.0-4.8) k/uL Metamyelocytes # (Man) (0) k/uL Nucleated RBCs (0-0) /100 WBC Macrocytosis PT 12.6 H (10.0-12.5) sec INR 1.2 H (<1.2) APTT 21.6 L (22.0-30.0) sec VBG pH (7.31-7.41) VBG pCO2 (37-51) mmHg Sodium (137-145) mmol/L Potassium (3.5-5.1) mmol/L Glucose 101 H (74-99) mg/dL AST 40 H (14-36) U/L ALT 40 H (4-34) U/L Troponin I (0.000-0.034) ng/mL
[2024-04-24] MEDS: PIPERACILLIN-TAZOBACTAM 3.375 GM in SODIUM CHLORIDE 0.9% 100 ML IVPB SCH (12:21)
[2024-04-24] MEDS: INSULIN ASPART (NovoLOG) 100 UNIT/ML VIAL SQ SCH (12:39)
--- NOTE | 2024-04-24 13:59 | CA ---
Transthoracic Echo Report Name: Stephanie Mead Age: 48 Gender: F : 1975 Exam Date: 04/24/2024 09:41 Exam Location: [facility] Ht (in): 67 Wt (lb): 295 Ordering Physician: Daniel Rowan MD Attending/Referring Phys: [id number], Harpal Nutrition Aide Marietta Elizabeth, BOB Procedure CPT: Indications: chf Cardiac Hx: Technical Quality: Poor, Very technically difficult study Contrast 1: Definity Total Dose (mL): 2 Contrast 2: Total Dose (mL): MEASUREMENTS (Male / Female) Normal Values 2D ECHO LV Diastolic Diameter PLAX 3.9 cm 4.2 - 5.9 / 3.9 - 5.3 cm LV Systolic Diameter PLAX 2.8 cm IVS Diastolic Thickness 1.2 cm 0.6 - 1.0 / 0.6 - 0.9 cm LVPW Diastolic Thickness 1.2 cm 0.6 - 1.0 / 0.6 - 0.9 cm LV Relative Wall Thickness 0.6 RV Internal Dim ED PLAX 2.0 cm LA Systolic Diameter LX 3.7 cm 3.0 - 4.0 / 2.7 - 3.8 cm M-MODE Aortic Root Diameter MM 2.6 cm LA Systolic Diameter MM 3.4 cm LA Ao Ratio MM 1.3 FINDINGS Left Ventricle Left ventricular ejection fraction is estimated at 60-70 %. Mildly increased septal wall thickness. Mildly increased posterior wall thickness. Hyperdynamic left ventricular systolic function. No obvious regional wall motion abnormalities. Right Ventricle Right ventricle not well visualized. Unable to estimate the right ventricular systolic pressure. Right Atrium Right atrium not well visualized. Left Atrium Left atrium not well visualized. Mitral Valve Mitral valve not well visualized. Aortic Valve Aortic valve not well visualized. Tricuspid Valve Tricuspid valve not well visualized. Pulmonic Valve Pulmonic valve not well visualized. Pericardium No pericardial or pleural effusion. Aorta Normal size aortic root and proximal ascending aorta. CONCLUSIONS Hyperdynamic LV function , ejection fraction greater than 60% Previewed by: Dr. Han Dietrich MD (Electronically Signed) Final Date: 24 April 2024 13:59
[2024-04-24] MEDS: SIMETHICONE 80 MG CHEWABLE PO SCH (14:43)
--- NOTE | 2024-04-24 14:47 | CT ---
EXAMINATION TYPE: CT chest angio for PE DATE OF EXAM: 04/24/2024 2:23 PM COMPARISON: Chest radiograph from same day. CLINICAL INDICATION: Female, 48 years old with history of + d-dimer and SOB; elevated d-dimer TECHNIQUE/CONTRAST: CTA scan of the thorax is performed with IV Contrast, patient injected with 100 mL of Isovue 370, MIP images are created and reviewed these are created on a separate workstation.. CT DLP: 1554.5 mGycm, Automated exposure control for dose reduction was used. FINDINGS: Lungs/Pleura: Pulmonary vascular congestion with low lung volumes noted. No evidence of focal consoli dation, pleural effusion or pneumothorax. Airway: Large airways are patent. Heart: The heart is mildly enlarged for size. Vasculature: Limited evaluation due to bolus timing, no evidence for central pulmonary embolus. The lobar, segmental and subsegmental branches are limited due to bolus timing. The pulmonary artery is o f normal size. Mediastinum: No gross evidence of adenopathy. Musculoskeletal: No acute osseous abnormalities Soft Tissues/lymph nodes: Unremarkable. Lower neck: No significant findings. Upper Abdomen: Diffuse low-attenuation to the liver parenchyma.. Cholecystectomy clips present. IMPRESSION: 1. No evidence of central pulmonary embolism. Limited evaluation of the segmental and subsegmental br anches. 2. Cardiomegaly with pulmonary vascular congestion and low lung volumes correlate with serum BNP. 3. Hepatic steatosis. [facility], , 04/24/2024 2:44 PM
[2024-04-24] MEDS: ceFAZolin 3 GM in SODIUM CHLORIDE 0.9% 100 ML IVPB SCH (16:50)
[2024-04-24 20:24] LABS: Glucose,Whole Blood 120 mg/dL (70-110)
[2024-04-24] MEDS: ATORVASTATIN 20 MG TAB PO SCH (21:48)
[2024-04-24] MEDS: ASPIRIN 81 MG PO SCH (21:50)
[2024-04-24] MEDS: OLANZapine ODT 5 MG TAB PO SCH (21:50)
[2024-04-24] MEDS: lamoTRIgine 25 MG TAB PO SCH (21:50)
[2024-04-24] MEDS: INSULIN DETEMIR (LEVEMIR) 100 UNIT/ML SYR SQ SCH (21:50)
[2024-04-24] MEDS: PANTOPRAZOLE 40 MG/10 ML VIAL IVP SCH ×2 (22:06→22:11)
[2024-04-24] MEDS: PANTOPRAZOLE 40 MG TABLET PO SCH (22:10)
--- NOTE | 2024-04-24 22:58 | P.CRDCN ---
History of Present Illness Consult date: 04/24/24 History of present illness: HISTORY OF PRESENTING ILLNESS 48-year-old female with multiple comorbidities. [facility] a [facility] a [facility]. She presented to the hospital because of acute on chronic hypoxic and hypercapnic respiratory failure. Patient is apparently bedbound at baseline. She has left above-knee amputation. Right lower extremity has chronic partially healed leg ulcer on [place]. On admission patient had increased worsening shortness of breath, cough. She denies having any chest pain or orthopnea or paroxysmal nocturnal dyspnea. Admission labs shows hemoglobin 10.2, WBC 9.7, platelet 273, macrocytosis, Sodium 136. Potassium was 6.1 on admission, repeat 5.1. BUN 9, creatinine 0.9, Trope is elevated at 0.12, 0.22, 0.24. Social Hx: Family Hx: non contributary to current clinical scenario REVIEW OF SYSTEMS 14 point review of system is negative except what is mentioned above in HPI. PHYSICAL EXAMINATION Neck: Brisk carotid upstroke, no jugular venous distention. Lungs: Crackles and rhonchi audible. On BiPAP Heart: Regular rate and rhythm, S1-S2, no S3, no murmur or rub. Abdomen: Soft nontender, positive bowel sounds. Extremities: Right lower extremity has 1-2+ pitting edema, erythema on [place]aca with a partially healed ulcer. Left lower extremity has above-knee amputation. Neuro: Awake, slightly confused, lethargic, following one-step commands. Detailed neuro exam was not performed. 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 Travis Silva MD, FACC, RPVI Thank you for allowing [facility] to participate in this patient's care. Feel free to reach out in case of any followup questions. Past Medical History Past Medical History: Diabetes Mellitus, Respiratory Disorder, Thyroid Disorder Additional Past Medical History / Comment(s): Type 2 Diabetes, Hypothyrodism, Peripheral Vascular Disease, Cellulitis of right lower limb, Acute & Chronic Hypoxia, Chronic respiratory failure (3.5L Oxygen baseline) History of Any Multi-Drug Resistant Organisms: None Reported Past Surgical History: Orthopedic Surgery Additional Past Surgical History / Comment(s): Left leg acquired absence above knee Smoking Status: Former smoker Medications and Allergies Home Medications Medication Instructions Recorded Confirmed Type ALPRAZolam [Xanax] 0.25 mg PO BID PRN 04/23/24 04/23/24 History Acetaminophen [Tylenol 8 Hour] 650 mg PO Q6H PRN 04/23/24 04/23/24 History Antifungal Powder(Unknown) 1 applic TOPICAL BID 04/23/24 04/23/24 History Aspirin 81 mg PO HS 04/23/24 04/23/24 History Atorvastatin [Lipitor] 20 mg PO HS@199904/23/24 04/23/24 History Insulin Glargine [Lantus Vial] 10 unit SQ HS 04/23/24 04/23/24 History Levothyroxine Sodium [Synthroid] 137 mcg PO DAILY@0500 04/23/24 04/23/24 History Melatonin 3 mg PO HS@199904/23/24 04/23/24 History Naloxone HCl 0.4 mg IM ONCE PRN 04/23/24 04/23/24 History Naloxone HCl [Narcan] 4 mg NASAL ONCE PRN 04/23/24 04/23/24 History OLANZapine ODT [ZyPREXA ZYDIS] 5 mg PO HS 04/23/24 04/23/24 History Omeprazole [PriLOSEC] 20 mg PO HS@199904/23/24 04/23/24 History Ondansetron [Zofran] 4 mg PO Q6H PRN 04/23/24 04/23/24 History PARoxetine [Paxil] 20 mg PO DAILY 04/23/24 04/23/24 History Potassium Chloride ER [K-Dur 20] 20 meq PO HS 04/23/24 04/23/24 History Simethicone [Simethicone Chew] 80 mg PO ACHS 04/23/24 04/23/24 History Sulfamethox-Tmp 800-160Mg [Bactrim 1 tab PO BID@0700,1900 04/23/24 04/23/24 History DS 800-160 mg] hydrOXYzine pamoate [Vistaril] 25 mg PO TID PRN 04/23/24 04/23/24 History lamoTRIgine [LaMICtal] 50 mg PO BID 04/23/24 04/23/24 History oxyCODONE HCL [OxyIR] 5 mg PO Q6H PRN 04/23/24 04/23/24 History tiZANidine [Zanaflex] 4 mg PO TID@0700,1300,1900 04/23/24 04/23/24 History traMADol HCL 50 mg PO Q6H PRN 04/23/24 04/23/24 History Allergies Allergy/AdvReac Type Severity Reaction Status Date / Time egg Allergy Unknown Verified 04/23/24 16:42 morphine Allergy Unknown Verified 04/23/24 16:42 onion Allergy Unknown Verified 04/23/24 16:42 Physical Exam Vitals: Vital Signs Temp Pulse Pulse Resp BP BP Pulse Ox 04/24/24 19:52 98.0 F 104 H 18 107/54 97 04/24/24 18:56 18 04/24/24 18:43 98.2 F 107 H 18 119/73 94 L 04/24/24 17:37 98.4 F 101 H 20 122/77 99 04/24/24 16:51 105 H 16 127/83 100 04/24/24 15:13 04/24/24 14:30 111 H 04/24/24 14:00 20 142/84 97 04/24/24 12:00 105 H 20 111/72 97 04/24/24 10:00 111 H 20 123/68 98 04/24/24 07:48 04/24/24 07:41 99.9 F H 110 H 16 112/62 98 04/24/24 06:27 112 H 16 109/48 97 04/24/24 05:40 112 H 16 115/54 96 04/24/24 05:26 04/24/24 03:11 106 H 16 109/63 98 04/24/24 02:08 111 H 16 100/43 96 04/24/24 01:14 112 H 16 116/52 95 04/24/24 00:58 04/24/24 00:22 120 H 18 109/62 97 FiO2 04/24/24 19:52 04/24/24 18:56 04/24/24 18:43 04/24/24 17:37 04/24/24 16:51 04/24/24 15:13 50 04/24/24 14:30 04/24/24 14:00 04/24/24 12:00 50 04/24/24 10:00 04/24/24 07:48 50 04/24/24 07:41 04/24/24 06:27 50 04/24/24 05:40 50 04/24/24 05:26 50 04/24/24 03:11 50 04/24/24 02:08 04/24/24 01:14 04/24/24 00:58 50 04/24/24 00:22 Intake and Output 04/24/24 04/24/24 04/24/24 06:59 14:59 22:59 Intake Total 94.176 170.228 84.44 Balance 94.176 170.228 84.44 Intake: Intake, IV Titration 94.176 170.228 84.44 Amount Heparin Sod,Pork in 0.45% 94.176 170.228 84.44 NaCl 25,000 unit In 0.45 % NaCl 1 250ml.bag @ 7. 474 UNITS/KG/HR 10.001 mls/hr IV .Q24H [facility] Rx#: [id number] Other: Voiding Method Diaper Incontinent External Catheter Results 04/24/24 07:24 04/24/24 07:24 Cardiac Enzymes 04/24/24 Range/Units 07:24 AST 40 H (14-36) U/L Coagulation 04/24/24 04/24/24 Range/Units 07:24 14:30 PT 12.6 H (10.0-12.5) sec APTT 21.6 L 28.8 (22.0-30.0) sec CBC 04/24/24 Range/Units 07:24 WBC 7.6 (3.8-10.6) k/uL RBC 2.96 L (3.80-5.40) m/uL Hgb 9.5 L (11.4-16.0) gm/dL Hct 31.8 L (34.0-46.0) % Plt Count 231 (150-450) k/uL Comprehensive Metabolic Panel 04/24/24 Range/Units 07:24 Sodium 137 (137-145) mmol/L Potassium 5.1 (3.5-5.1) mmol/L Chloride 100 (98-107) mmol/L Carbon Dioxide 27 (22-30) mmol/L BUN 10 (7-17) mg/dL Creatinine 0.83 (0.52-1.04) mg/dL Glucose 101 H (74-99) mg/dL Calcium 9.6 (8.4-10.2) mg/dL AST 40 H (14-36) U/L ALT 40 H (4-34) U/L Alkaline Phosphatase 89 (38-126) U/L Total Protein 6.7 (6.3-8.2) g/dL Albumin 3.7 (3.5-5.0) g/dL Current Medications Generic Name Dose Route Start Last Admin Trade Name Freq PRN Reason Stop Dose Admin Acetaminophen 650 mg 04/23/24 15:28 04/24/24 16:59 Acetaminophen Tab 325 Mg Tab PO 650 mg Q6HR PRN Administration Mild Pain or Fever > 100.5 Hydrocodone Bitart/Acetaminophen 1 each 04/23/24 20:52 04/23/24 21:10 Hydrocodone/Apap 5-325mg 1 Each Tab PO 1 each Q6HR PRN Administration Severe Pain (Scale 7 to 10) Alprazolam 0.25 mg 04/24/24 09:24 Alprazolam 0.25 Mg Tab PO BID PRN Anxiety Aspirin 81 mg 04/24/24 21:00 04/24/24 21:50 Aspirin 81 Mg PO 81 mg HS [facility] Administration Atorvastatin Calcium 20 mg 04/24/24 20:00 04/24/24 21:48 Atorvastatin 20 Mg Tab PO Not Given HS@2000 [facility] Dextrose/Water 25 ml 04/24/24 09:24 Dextrose 50% Syringe 50 Ml IVP PER PROTOCOL PRN Hypoglycemia Protocol Dextrose/Water 50 ml 04/24/24 09:24 Dextrose 50% Syringe 50 Ml IVP PER PROTOCOL PRN Hypoglycemia Protocol Furosemide 40 mg 04/23/24 21:00 04/24/24 21:50 Furosemide 10 Mg/Ml 4 Ml Vial IV 40 mg Q12HR [facility] Administration Heparin Sodium (Porcine) 0 unit 04/23/24 15:28 04/24/24 17:36 Heparin Sodium 1,000 Un/Ml (10ml Vl) IV 4,000 unit PER PROTOCOL PRN Administration Low PTT Protocol Hydromorphone HCl 0.5 mg 04/23/24 22:51 12/24/24 18:25 Hydromorphone 0.5 Mg/0.5 Ml Syringe IVP 0.5 mg Q6HR PRN Administration Severe Pain (Scale 7 to 10) Heparin Sodium/Sodium Chloride 250 mls @ 10.001 mls/hr 04/23/24 15:30 04/24/24 17:31 25,000 unit/ Sodium Chloride IV 16.474 units/kg/hr .Q24H [facility] 22.044 mls/hr Titration Protocol 7.474 UNITS/KG/HR Cefazolin Sodium 3 gm/ Sodium 100 mls @ 200 mls/hr 04/24/24 16:00 04/24/24 16:50 Chloride IVPB 200 mls/hr Q8HR [facility] Administration Protocol Insulin Aspart 0 unit 04/24/24 12:30 04/24/24 20:30 Insulin Aspart (Novolog) 100 Unit/Ml Vial SQ Not Given ACHS [facility] Protocol Insulin Detemir 10 unit 04/24/24 21:00 04/24/24 21:50 Insulin Detemir (Levemir) 100 Unit/Ml Syr SQ 10 unit HS [facility] Administration Lamotrigine 50 mg 04/24/24 21:00 04/24/24 21:50 Lamotrigine 25 Mg Tab PO 50 mg BID [facility] Administration Levothyroxine Sodium 137 mcg 04/25/24 05:00 Levothyroxine 137 Mcg Tab PO DAILY@0500 [facility] Naloxone HCl 0.2 mg 04/23/24 15:28 Naloxone 0.4 Mg/Ml 1 Ml Vial IV Q2M PRN Opioid Reversal Olanzapine 5 mg 04/24/24 21:00 04/24/24 21:50 Olanzapine Odt 5 Mg Tab PO 5 mg HS [facility] Administration Ondansetron HCl 4 mg 04/23/24 22:35 04/24/24 04:10 Ondansetron 4 Mg/2 Ml Vial IVP 4 mg Q6HR PRN Administration Nausea And Vomiting Pantoprazole Sodium 40 mg 04/25/24 21:00 Pantoprazole 40 Mg/10 Ml Vial IVP HS [facility] Paroxetine HCl 20 mg 04/25/24 09:00 Paroxetine 20 Mg Tab PO DAILY [facility] Simethicone 80 mg 04/24/24 12:30 04/24/24 21:51 Simethicone 80 Mg Chewable PO 80 mg ACHS [facility] Administration Tramadol HCl 50 mg 04/24/24 09:24 Tramadol 50 Mg Tab PO Q6H PRN Moderate Pain (Scale 4 to 6) Intake and Output 04/24/24 04/24/24 04/24/24 06:59 14:59 22:59 Intake Total 94.176 170.228 84.44 Balance 94.176 170.228 84.44 Intake: Intake, IV Titration 94.176 170.228 84.44 Amount Heparin Sod,Pork in 0.45% 94.176 170.228 84.44 NaCl 25,000 unit In 0.45 % NaCl 1 250ml.bag @ 7. 474 UNITS/KG/HR 10.001 mls/hr IV .Q24H [facility] Rx#: [id number] Other: Voiding Method Diaper Incontinent External Catheter 04/24/24 07:24 04/24/24 07:24
[2024-04-25] MEDS: traMADol 50 MG TAB PO PRN (04:35)
[2024-04-25 06:12] LABS: Glucose,Whole Blood 101 mg/dL (70-110)
[2024-04-25] MEDS: LEVOTHYROXINE 137 MCG TAB PO SCH (06:32)
[2024-04-25] MEDS: ALPRAZolam 0.25 MG TAB PO PRN (08:02)
[2024-04-25] MEDS: PARoxetine 20 MG TAB PO SCH (08:02)
[2024-04-25 08:29] LABS: Anisocytosis Slight; Basophils % (A) 1 %; Eosinophils # (A) 0.5 k/uL (0-0.7); Eosinophils % (A) 8 %; HGB 9.1 gm/dL (11.4-16.0); Hypochromasia Marked; Lymphocytes # (A) 1.1 k/uL (1.0-4.8); Lymphocytes % (A) 16 %; MCH 32.3 pg (25.0-35.0); MCHC 31.3 g/dL (31.0-37.0); MCV 103.3 fL (80.0-100.0); Macrocytosis Moderate; Mean Platelet Volume 7.8; Monocytes # (A) 0.5 k/uL (0-1.0); Monocytes % (A) 7 %; Neutrophils # (A) 4.5 k/uL (1.3-7.7); Neutrophils % (A) 64 %; Platelet Count 218 k/uL (150-450); Poikilocytosis Slight; RBC 2.81 m/uL (3.80-5.40); RDW 19.2 % (11.5-15.5)
[2024-04-25 08:31] LABS: ALT 26 U/L (4-34); African American GFR (CKD) >90 (>60 ml/min/1.73 sqM); Albumin 3.5 g/dL (3.5-5.0); Anion Gap 7 mmol/L; Blood Urea Nitrogen 11 mg/dL (7-17); Calcium 9.2 mg/dL (8.4-10.2); Carbon Dioxide 31 mmol/L (22-30); Chloride 98 mmol/L (98-107); Glucose 92 mg/dL (74-99); Non-African American GFR(CKD) >90 (>60 ml/min/1.73 sqM); Sodium 136 mmol/L (137-145); Total Bilirubin 0.3 mg/dL (0.2-1.3); Total Protein 6.3 g/dL (6.3-8.2)
[2024-04-25 08:32] LABS: AST 43 U/L (14-36); Alkaline Phosphatase 67 U/L (38-126); Potassium 4.6 mmol/L (3.5-5.1)
--- NOTE | 2024-04-25 09:33 | P.CONS ---
History of Present Illness - Reason for Consult Consult date: 04/24/24 Right leg cellulitis Requesting physician: Jos Kim - Chief Complaint Weakness shortness of breath x few days - History of Present Illness Patient is a 48-year-old female with a past medical history of again for diabetes mellitus peripheral vascular disease and did have left vycvl-kef-xmtd amputation chronic respiratory failure on home O2 patient has been brought into the hospital for evaluation of increasing shortness of breath that apparently has been getting worse over the last few days patient denies having any chest pain she did have a mild cough but no sputum production patient also complaining of increasing swelling and redness to the right lower extremity for the last few days patient describing pain to the leg to be mostly sharp moderate intensity without radiation denies having open wound or any drainage on presentation to the hospital patient was initially febrile she did have low- grade fever of 99.9 F this morning patient was tachycardic but not hypotensive mildly hypoxic currently on supplemental oxygen patient did have white count of 9.7 with a left shift creatinine has been normal troponin is elevated influenza RSV COVID testing has been negative blood cultures obtained which are currently pending patient did have chest x-ray cardiomegaly correlate for mild CHF underlying pneumonia not excluded patient has been admitted to hospital infectious disease was consulted for further management of antibiotic for the right lower extremity cellulitis Review of Systems Positive point and negatives has been mentioned in the HPI, complete review of systems was performed and all other systems are negative Past Medical History Past Medical History: Diabetes Mellitus, Respiratory Disorder, Thyroid Disorder Additional Past Medical History / Comment(s): Type 2 Diabetes, Hypothyrodism, Peripheral Vascular Disease, Cellulitis of right lower limb, Acute & Chronic Hypoxia, Chronic respiratory failure (3.5L Oxygen baseline) History of Any Multi-Drug Resistant Organisms: None Reported Past Surgical History: Orthopedic Surgery Additional Past Surgical History / Comment(s): Left leg acquired absence above knee Past Psychological History: No Psychological Hx Reported Smoking Status: Former smoker Past Alcohol Use History: None Reported Past Drug Use History: None Reported Medications and Allergies Home Medications Medication Instructions Recorded Confirmed Type ALPRAZolam [Xanax] 0.25 mg PO BID PRN 04/23/24 04/23/24 History Acetaminophen [Tylenol 8 Hour] 650 mg PO Q6H PRN 04/23/24 04/23/24 History Antifungal Powder(Unknown) 1 applic TOPICAL BID 04/23/24 04/23/24 History Aspirin 81 mg PO HS 04/23/24 04/23/24 History Atorvastatin [Lipitor] 20 mg PO HS@199904/23/24 04/23/24 History Insulin Glargine [Lantus Vial] 10 unit SQ HS 04/23/24 04/23/24 History Levothyroxine Sodium [Synthroid] 137 mcg PO DAILY@0500 04/23/24 04/23/24 History Melatonin 3 mg PO HS@199904/23/24 04/23/24 History Naloxone HCl 0.4 mg IM ONCE PRN 04/23/24 04/23/24 History Naloxone HCl [Narcan] 4 mg NASAL ONCE PRN 04/23/24 04/23/24 History OLANZapine ODT [ZyPREXA ZYDIS] 5 mg PO HS 04/23/24 04/23/24 History Omeprazole [PriLOSEC] 20 mg PO HS@199904/23/24 04/23/24 History Ondansetron [Zofran] 4 mg PO Q6H PRN 04/23/24 04/23/24 History PARoxetine [Paxil] 20 mg PO DAILY 04/23/24 04/23/24 History Potassium Chloride ER [K-Dur 20] 20 meq PO HS 04/23/24 04/23/24 History Simethicone [Simethicone Chew] 80 mg PO ACHS 04/23/24 04/23/24 History Sulfamethox-Tmp 800-160Mg [Bactrim 1 tab PO BID@0700,1900 04/23/24 04/23/24 History DS 800-160 mg] hydrOXYzine pamoate [Vistaril] 25 mg PO TID PRN 04/23/24 04/23/24 History lamoTRIgine [LaMICtal] 50 mg PO BID 04/23/24 04/23/24 History oxyCODONE HCL [OxyIR] 5 mg PO Q6H PRN 04/23/24 04/23/24 History tiZANidine [Zanaflex] 4 mg PO TID@0700,1300,1900 04/23/24 04/23/24 History traMADol HCL 50 mg PO Q6H PRN 04/23/24 04/23/24 History Allergies Allergy/AdvReac Type Severity Reaction Status Date / Time egg Allergy Unknown Verified 04/23/24 16:42 morphine Allergy Unknown Verified 04/23/24 16:42 onion Allergy Unknown Verified 04/23/24 16:42 Physical Exam Vitals: Vital Signs Temp Pulse Resp BP Pulse Ox FiO2 04/24/24 15:13 50 04/24/24 14:30 111 H 04/24/24 14:00 20 142/84 97 04/24/24 12:00 105 H 20 111/72 97 50 04/24/24 10:00 111 H 20 123/68 98 04/24/24 07:48 50 04/24/24 07:41 99.9 F H 110 H 16 112/62 98 04/24/24 06:27 112 H 16 109/48 97 50 04/24/24 05:40 112 H 16 115/54 96 50 04/24/24 05:26 50 04/24/24 03:11 106 H 16 109/63 98 50 04/24/24 02:08 111 H 16 100/43 96 04/24/24 01:14 112 H 16 116/52 95 04/24/24 00:58 50 04/24/24 00:22 120 H 18 109/62 97 04/23/24 21:58 109 H 16 133/72 90 L 04/23/24 21:08 50 04/23/24 20:09 108 H 16 118/64 93 L 04/23/24 18:10 98.9 F 105 H 20 129/76 98 04/23/24 17:04 98.7 F 103 H 14 122/73 92 L 04/23/24 16:31 102 H 16 117/77 92 L 04/23/24 16:10 98.9 F 101 H 16 118/73 92 L 04/23/24 16:04 60 04/23/24 15:53 87 L Intake and Output 04/24/24 04/24/24 04/24/24 06:59 14:59 22:59 Intake Total 94.176 170.228 Balance 94.176 170.228 Intake: Intake, IV Titration 94.176 170.228 Amount Heparin Sod,Pork in 0.45% 94.176 170.228 NaCl 25,000 unit In 0.45 % NaCl 1 250ml.bag @ 7. 474 UNITS/KG/HR 10.001 mls/hr IV .Q24H [facility] Rx#: [id number] GENERAL DESCRIPTION: Middle-aged female lying in bed, no distress. No tachypnea or accessory muscle of respiration use. HEENT: Shows Pallor , no scleral icterus. Oral mucous membrane is dry. NECK: Trachea central, no thyromegaly. LUNGS: Unlabored breathing. Decreased breath sound at the base HEART: S1, S2, regular rate and rhythm. No loud murmur ABDOMEN: Soft, no tenderness , guarding or rigidity, no organomegaly EXTREMITIES: Left AKA stump incision is healed patient did have swelling to the right leg with erythema which is warm and tender to touch SKIN: No rash, no masses palpable. NEUROLOGICAL: The patient is awake, alert, oriented x3, mood and affect normal. Results CBC & Chem 7: 04/25/24 07:52 04/25/24 07:52 Labs: Abnormal Lab Results - Last 24 Hours (Table) 04/23/24 04/23/24 04/23/24 Range/Units 17:28 21:01 21:01 RBC (3.80-5.40) m/uL Hgb (11.4-16.0) gm/dL Hct (34.0-46.0) % MCV (80.0-100.0) fL MCHC (31.0-37.0) g/dL RDW (11.5-15.5) % Metamyelocytes # (Man) (0) k/uL Myelocytes # (Manual) (0) k/uL Nucleated RBCs (0-0) /100 WBC Macrocytosis PT (10.0-12.5) sec INR (<1.2) APTT 19.8 L (22.0-30.0) sec D-Dimer (<0.60) mg/L FEU Potassium 6.1 H* (3.5-5.1) mmol/L Glucose (74-99) mg/dL POC Glucose (mg/dL) (70-110) mg/dL AST (14-36) U/L ALT (4-34) U/L Troponin I 0.226 H* (0.000-0.034) ng/mL C-Reactive Protein (<1.0) mg/dL 04/23/24 04/24/24 04/24/24 Range/Units 21:01 07:24 07:24 RBC 2.96 L (3.80-5.40) m/uL Hgb 9.5 L (11.4-16.0) gm/dL Hct 31.8 L (34.0-46.0) % MCV 107.6 H (80.0-100.0) fL MCHC 29.8 L (31.0-37.0) g/dL RDW 19.2 H (11.5-15.5) % Metamyelocytes # (Man) 0.15 H (0) k/uL Myelocytes # (Manual) 0.08 H (0) k/uL Nucleated RBCs 3 H (0-0) /100 WBC Macrocytosis Marked A PT 12.6 H (10.0-12.5) sec INR 1.2 H (<1.2) APTT 21.6 L (22.0-30.0) sec D-Dimer (<0.60) mg/L FEU Potassium (3.5-5.1) mmol/L Glucose (74-99) mg/dL POC Glucose (mg/dL) (70-110) mg/dL AST (14-36) U/L ALT (4-34) U/L Troponin I 0.244 H* (0.000-0.034) ng/mL C-Reactive Protein (<1.0) mg/dL 04/24/24 04/24/24 04/24/24 Range/Units 07:24 07:24 07:24 RBC (3.80-5.40) m/uL Hgb (11.4-16.0) gm/dL Hct (34.0-46.0) % MCV (80.0-100.0) fL MCHC (31.0-37.0) g/dL RDW (11.5-15.5) % Metamyelocytes # (Man) (0) k/uL Myelocytes # (Manual) (0) k/uL Nucleated RBCs (0-0) /100 WBC Macrocytosis PT (10.0-12.5) sec INR (<1.2) APTT (22.0-30.0) sec D-Dimer 1.19 H (<0.60) mg/L FEU Potassium (3.5-5.1) mmol/L Glucose 101 H (74-99) mg/dL POC Glucose (mg/dL) (70-110) mg/dL AST 40 H (14-36) U/L ALT 40 H (4-34) U/L Troponin I (0.000-0.034) ng/mL C-Reactive Protein 6.4 H (<1.0) mg/dL 1224/24 Range/Units 10:51 RBC (3.80-5.40) m/uL Hgb (11.4-16.0) gm/dL Hct (34.0-46.0) % MCV (80.0-100.0) fL MCHC (31.0-37.0) g/dL RDW (11.5-15.5) % Metamyelocytes # (Man) (0) k/uL Myelocytes # (Manual) (0) k/uL Nucleated RBCs (0-0) /100 WBC Macrocytosis PT (10.0-12.5) sec INR (<1.2) APTT (22.0-30.0) sec D-Dimer (<0.60) mg/L FEU Potassium (3.5-5.1) mmol/L Glucose (74-99) mg/dL POC Glucose (mg/dL) 136 H (70-110) mg/dL AST (14-36) U/L ALT (4-34) U/L Troponin I (0.000-0.034) ng/mL C-Reactive Protein (<1.0) mg/dL Assessment and Plan (1) Cellulitis of right leg Current Visit: Yes Status: Acute Code(s): L03.115 - CELLULITIS OF RIGHT LOWER LIMB SNOMED Code(s): 10725204463391026 Plan: 1patient presented hospital with generalized weakness increasing shortness of breath patient also have diffuse swelling to the right lower extremity and erythema concerning for cellulitis likely from gram-positive skin vahid 2-we will start the patient on cefazolin 3 g every 8 hours 3-marked the area of the redness We will follow on clinical condition and cultures to further adjust medication if needed Thank you for this consultation we will follow the patient along with you Dictation was produced using [employer] dictation software. please excuse any grammatical, word or spelling errors. Time with Patient: Greater than 30
--- NOTE | 2024-04-25 11:25 | P.PN ---
Subjective Progress Note Date: 04/25/24 This is a 48-year-old female patient with a known history of diabetes mellitus, hypothyroidism, peripheral vascular disease, nonhealing wound of the left lower extremity status post left ifvro-rgv-rlty amputation, chronic respiratory failure on home oxygen, former smoker, bipolar disorder. The patient was admitted on February 11, 2024 to [facility] and was 47 days there most of which was in the intensive care unit. She was then transferred to [facility] in [place] for 2-1/2 weeks. She then was readmitted and intubated for 14 days and had a trachostomy tube placement for 5 days and it was subsequently dislodged and left out according to the patient's sister who is at the bedside. From there she was transferred to [facility]. She was brought here to the emergency room yesterday after being found hypoxic, lethargic and hypotensive. She did have episodes of vomiting as well. Chest x- ray reveals cardiomegaly with mild congestive heart failure and small bilateral effusions. White count 7.6. Hemoglobin 9.5. Platelets 231. INR 1.2. D-dimer 1.19. Sodium 137. Initial potassium 7.0. Currently 5.1. She did receive Lokelma. Bicarb 27. BUN 10. Creatinine 0.83. Glucose 101. AST 40. ALT 40. Troponin 0.177, 0.226, 0.244. proBNP 20,000. Viral screen is negative. She has been initiated on a heparin drip. Lasix 40 mg IV every 12 hours. She is seen today in consultation in the emergency department. She has more awake and alert. She does have some nausea and vomiting. She was initiated on a BiPAP 14/6 and 50% FiO2. Slightly tachycardic. Blood pressure stable. Temperature 99.9 axillary. Procalcitonin pending. She will be initiated on Zosyn for now. The patient is seen today April 25, 2024 in follow-up on the selective care unit. She is currently resting in bed. Awake and alert in no acute distress. She is maintaining O2 saturations in the 90s on 5 L/min per nasal cannula. She did utilize BiPAP 14/6 and 50% FiO2 through the night. She is afebrile. Hemodynamically stable. CT angiogram revealed no evidence of pulmonary em bolism. Limited evaluation of the segmental and subsegmental branches. Cardiomegaly with pulmonary vascular congestion and low lung volumes. Hepatic steatosis. White count 7.0. Hemoglobin 9.1. Platelets 218. Sodium 136. Potassium 4.6. Bicarb 31. BUN 11. Creatinine 0.78. GFR greater than 90. AST 43. ALT 26. Calcitonin 0.61. She remains on a heparin drip for a troponin leak. She remains on cefazolin for cellulitis of the right leg. She remains on Lasix 40 mg IV every 12 hours. Incontinent of urine. No accurate I&O. Objective - Vital Signs Vital signs: Vital Signs Temp 97.8 F 04/25/24 08:00 Pulse 101 H 04/25/24 08:00 Resp 18 04/25/24 08:00 BP 104/67 04/25/24 08:00 Pulse Ox 93 L 04/25/24 08:14 FiO2 50 04/24/24 15:13 Intake & Output 04/24/24 04/25/24 04/25/24 18:59 06:59 18:59 Intake Total 254.668 165.56 Balance 254.668 165.56 Weight 135.5 kg Intake: Intake, IV Titration 254.668 165.56 Amount Heparin Sod,Pork in 0.45% 254.668 165.56 NaCl 25,000 unit In 0.45 % NaCl 1 250ml.bag @ 7. 474 UNITS/KG/HR 10.001 mls/hr IV .Q24H [facility] Rx#: [id number] Other: Voiding Method Diaper Diaper Diaper Incontinent Incontinent Incontinent External Catheter External Catheter External Catheter # Voids 2 - Exam GENERAL EXAM: Alert, weak, morbidly obese 48-year-old female, on BiPAP 14/6 and 50% FiO2, comfortable in no apparent distress. HEAD: Normocephalic. EYES: Normal reaction of pupils, equal size. NOSE: Clear with pink turbinates. THROAT: No erythema or exudates. NECK: No masses, no JVD. CHEST: No chest wall deformity. LUNGS: Equal air entry with few scattered rhonchi bilaterally. CVS: S1 and S2 normal with no audible murmur, regular rhythm. ABDOMEN: No hepatosplenomegaly, normal bowel sounds, no guarding or rigidity. SPINE: No scoliosis or deformity SKIN: No rashes CENTRAL NERVOUS SYSTEM: No focal deficits, tone is normal in all 4 extremities. EXTREMITIES: Left xaxch-hxl-nmqp amputation. Cellulitis of the right leg. There is 1-2+ peripheral edema. No clubbing, no cyanosis. Peripheral pulses are intact. - Labs CBC & Chem 7: 04/25/24 07:52 04/25/24 07:52 Labs: Abnormal Lab Results - Last 24 Hours (Table) 04/24/24 04/24/24 04/24/24 Range/Units 07:24 07:24 20:23 RBC (3.80-5.40) m/uL Hgb (11.4-16.0) gm/dL Hct (34.0-46.0) % MCV (80.0-100.0) fL RDW (11.5-15.5) % APTT (22.0-30.0) sec Sodium (137-145) mmol/L Carbon Dioxide (22-30) mmol/L POC Glucose (mg/dL) 120 H (70-110) mg/dL AST (14-36) U/L C-Reactive Protein 6.4 H (<1.0) mg/dL Procalcitonin 0.61 H (0.02-0.50) ng/mL 04/24/24 04/25/24 04/25/24 Range/Units 23:32 07:52 07:52 RBC 2.81 L (3.80-5.40) m/uL Hgb 9.1 L (11.4-16.0) gm/dL Hct 29.0 L (34.0-46.0) % MCV 103.3 H (80.0-100.0) fL RDW 19.2 H (11.5-15.5) % APTT 39.5 H (22.0-30.0) sec Sodium 136 L (137-145) mmol/L Carbon Dioxide 31 H (22-30) mmol/L POC Glucose (mg/dL) (70-110) mg/dL AST 43 H (14-36) U/L C-Reactive Protein (<1.0) mg/dL Procalcitonin (0.02-0.50) ng/mL Microbiology - Last 24 Hours (Table) 04/23/24 14:26 Blood Culture - Preliminary Blood Assessment and Plan Assessment: Acute on chronic hypoxemic respiratory failure secondary to suspected diastolic versus systolic congestive heart failure. proBNP 20,000. CT angiogram ruled out pulmonary embolism. There is cardiomegaly with pulmonary vascular congestion and low lung volumes. Cellulitis of the right lower extremity currently on cefazolin, procalcitonin 0.61 Troponin leak, currently on a heparin drip Hyperkalemia requiring Lokelma, currently improved at 4.6 Anemia, current hemoglobin 9.1 Morbid obesity and suspected obesity/hypoventilation syndrome/obstructive sleep apnea Admitted February 11, 2024 with a 47-day length of stay at [facility] at one point intubated for 14 days, status post tracheostomy tube x 5 days which became possibly dislodged and remains out. 2-1/2-week stay at [facility] and subsequently transferred to [facility] History of left iyzym-mvu-sikt amputation due to infection approximately 5 years ago Bipolar disorder Diabetes mellitus Hypothyroidism Hyperlipidemia Hepatic steatosis Plan: The patient was seen and evaluated Labs and medications reviewed Currently on cefazolin for cellulitis Currently on 5 L nasal cannula BiPAP 14/6 and 50% FiO2 as needed Titrate the FiO2 as tolerated Continue DuoNeb inhalations Continue Lasix 40 mg IV every 12 hours Remains on a heparin drip We will continue to follow I have personally seen and examined the patient, performed the documentation and the assessment and plan as written. Number of minutes spent on the visit: 10 Dictation was produced using [employer] dictation software. Please excuse any grammatical, word or spelling errors.
[2024-04-25 12:09] LABS: Glucose,Whole Blood 127 mg/dL (70-110)
[2024-04-25] MEDS: HEPARIN SODIUM,PORCINE 5,000 UNIT/ML 1 ML VIAL SQ SCH (15:06)
--- NOTE | 2024-04-25 16:11 | P.PN ---
Subjective Progress Note Date: 04/25/24 patient is a 48-year-old lady with past medical history significant for respiratory failure, obesity ventilation syndrome, who is a resident of a shelter facility brought to the ER because of worsening shortness of breath. Patient apparently is bedbound at baseline. Patient was complaining of shortness of breath. Patient also complaining of cough there was no complaint of chest pain. There is no complaint of orthopnea or PND. There is no complaint of fever or chills. Because of shortness of breath, patient was brought to the ER Initial lab work done in the ER showed WBC 9.7, hemoglobin 10.2, platelet count 273, VBG shows pH 7.2, pCO2 72, bicarb 28, sodium 136, potassium 7, BUN 9, creatinine 0.90, glucose 126, troponin 0.177 Influenza A not detected Influenza B not detected RSV not detected COVID-19 not detected EKG done in the ER showed heart rate of 101, no ST segment elevation or depression seen, no T-wave inversions seen. Chest x-ray done in the ER showed cardiomegaly with mild CHF with small lateral pleural effusions Patient admitted to internal medicine service 04/25. Patient seen and examined. blood work done this morning showed WBC 7, hemonine 0.1, platelet count 218, sodium 130s, potassium 4.6, BUN 11, creatinine 0.78. Patient stated breathing has improved. Currently on 5 L of oxygen. CTA chest done showed pulm vascular congestion and cardiomegaly with no evidence of PE REVIEW OF SYSTEMS: CONSTITUTIONAL: No fever, no malaise,. CARDIOVASCULAR: No chest pain, no palpitations, no syncope. PULMONARY: No shortness of breath, no cough, GASTROINTESTINAL: No diarrhea, no nausea, no vomiting, no abdominal pain. NEUROLOGICAL: No headaches, no weakness, PHYSICAL EXAMINATION: GENERAL: The patient is alert , ill looking HEENT: Pupils are round and equally reacting to light. EOMI. No scleral icterus. No conjunctival pallor. Normocephalic, atraumatic. No pharyngeal erythema. No thyromegaly. CARDIOVASCULAR: S1 and S2 present. No murmurs, rubs, or gallops. PULMONARY: Diminished breath sounds at bases bilaterally, crackles audible ABDOMEN: Soft, nontender, nondistended, normoactive bowel sounds. No palpable organomegaly. 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 NEUROLOGICAL: Gross neurological examination did not reveal any focal deficits. SKIN: No rashes. Assessment and plan Acute hypoxemic hypercapnic respiratory failure Acute CHF Right lower extremity cellulitis Elevated troponin Hyperkalemia Obesity Hypothyroidism Hyperlipidemia Diabetes mellitus Monitor vital signs Monitor CBC Monitor CMP Continue telemetry monitoring Continue patient on pharmacy dose heparin Ordered 2D echo Strict I's and O's, daily weights,IV Lasix 40 g every 12 IV cefazolin Cardiology following Pulmonology following Labs and medication were reviewed.. Continue same treatment. Continue with symptomatic treatment. Resume home medication. Monitor labs and vitals. DVT and GI prophylaxis. Further recommendations as per clinical course of the patient Dictation was produced using [employer] display technologies dictation software. please excuse any grammatical, word or spelling errors. Objective - Vital Signs Vital signs: Vital Signs Temp 97.8 F 04/25/24 15:19 Pulse 101 H 04/25/24 15:19 Resp 16 04/25/24 15:19 BP 112/64 04/25/24 15:19 Pulse Ox 93 L 04/25/24 15:19 FiO2 50 04/24/24 15:13 Intake & Output 04/24/24 04/25/24 04/25/24 18:59 06:59 18:59 Intake Total 254.668 165.56 321.252 Balance 254.668 165.56 321.252 Weight 135.5 kg Intake: IV 10 Invasive Line 1 10 Intake, IV Titration 254.668 165.56 193.252 Amount Heparin Sod,Pork in 0.45% 254.668 165.56 193.252 NaCl 25,000 unit In 0.45 % NaCl 1 250ml.bag @ 7. 474 UNITS/KG/HR 10.001 mls/hr IV .Q24H [facility] Rx#: [id number] Oral 118 Other: Voiding Method Diaper Diaper Diaper Incontinent Incontinent Incontinent External Catheter External Catheter External Catheter # Voids 2 3 - Labs CBC & Chem 7: 04/25/24 07:52 04/25/24 07:52 Labs: Abnormal Lab Results - Last 24 Hours (Table) 04/24/24 04/24/24 04/24/24 Range/Units 07:24 20:23 23:32 RBC (3.80-5.40) m/uL Hgb (11.4-16.0) gm/dL Hct (34.0-46.0) % MCV (80.0-100.0) fL RDW (11.5-15.5) % APTT 39.5 H (22.0-30.0) sec Sodium (137-145) mmol/L Carbon Dioxide (22-30) mmol/L POC Glucose (mg/dL) 120 H (70-110) mg/dL AST (14-36) U/L Procalcitonin 0.61 H (0.02-0.50) ng/mL 04/25/24 04/25/24 04/25/24 Range/Units 07:52 07:52 12:04 RBC 2.81 L (3.80-5.40) m/uL Hgb 9.1 L (11.4-16.0) gm/dL Hct 29.0 L (34.0-46.0) % MCV 103.3 H (80.0-100.0) fL RDW 19.2 H (11.5-15.5) % APTT (22.0-30.0) sec Sodium 136 L (137-145) mmol/L Carbon Dioxide 31 H (22-30) mmol/L POC Glucose (mg/dL) 127 H (70-110) mg/dL AST 43 H (14-36) U/L Procalcitonin (0.02-0.50) ng/mL Microbiology - Last 24 Hours (Table) 04/23/24 14:26 Blood Culture - Preliminary Blood
[2024-04-25 16:56] LABS: Glucose,Whole Blood 128 mg/dL (70-110)
--- NOTE | 2024-04-25 19:46 | PN ---
PROGRESS NOTE SUBJECTIVE: A 48-year-old lady with multiple comorbidities, who is currently in a fpc and is admitted to hospital because of acute on chronic respiratory failure. Cardiology had been consulted because of type 2 myocardial infarction. This morning, the patient is pain-free, stable hemodynamically and pulmonary embolism had been ruled out. A 2D echo showed normal LV systolic function. OBJECTIVE: VITAL SIGNS: Afebrile, heart rate is 90 beats per minute, blood pressure is 104/67, respiratory rate is 18. CHEST: Reveals bilateral occasional rhonchi. HEART: Reveals first and second heart sounds. No gallop. No murmur. ABDOMEN: Soft. EXTREMITIES: Reveals mild bilateral edema. LABORATORY DATA: Labs show a hemoglobin of 9.1. Potassium is 4.6, creatinine 0.78. Troponins are in the mejia zone at 0.1, 0.2, and 0.2. ASSESSMENT: Troponin elevation probably related to type 2 myocardial infarction. PLAN: I am going to stop the IV heparin, start her on subcu heparin. Continue rest of her medications. MMODL / IJN: [id number] /
[2024-04-25 20:18] LABS: Glucose,Whole Blood 169 mg/dL (70-110)
[2024-04-25] MEDS: PANTOPRAZOLE 40 MG/10 ML VIAL IVP SCH (21:02)
--- NOTE | 2024-04-25 21:31 | P.PN ---
Subjective Progress Note Date: 04/25/24 Principal diagnosis: Reason for follow-up is right leg cellulitis Patient is a 48-year-old female with a past medical history of again for diabetes mellitus peripheral vascular disease and did have left kzgbs-qsu-ptqw amputation chronic respiratory failure on home O2 patient has been brought into the hospital for evaluation of increasing shortness of breath patient also having increasing swelling to the right lower extremity with some redness concerning for cellulitis prompting this consultation. On today's evaluation that is 04/25/2024,the patient did have a low-grade fever of 99.9 F this morning, patient is breathing comfortably on 5 L nasal cannula oxygen, the patient denies chest pain shortness of breath and no significant cough, patient denies abdominal pain, no nausea vomiting or diarrhea. Patient swelling and redness right leg slightly decreased. Patient white count is 7.0 creatinine is 0.78 blood cultures are pending Objective - Vital Signs Vital signs: Vital Signs Temp 97.8 F 04/25/24 08:00 Pulse 102 H 04/25/24 12:06 Resp 18 04/25/24 12:06 BP 108/60 04/25/24 12:06 Pulse Ox 94 L 04/25/24 12:06 FiO2 50 04/24/24 15:13 Intake & Output 04/24/24 04/25/24 04/25/24 18:59 06:59 18:59 Intake Total 254.668 165.56 321.252 Balance 254.668 165.56 321.252 Weight 135.5 kg Intake: IV 10 Invasive Line 1 10 Intake, IV Titration 254.668 165.56 193.252 Amount Heparin Sod,Pork in 0.45% 254.668 165.56 193.252 NaCl 25,000 unit In 0.45 % NaCl 1 250ml.bag @ 7. 474 UNITS/KG/HR 10.001 mls/hr IV .Q24H [facility] Rx#: [id number] Oral 118 Other: Voiding Method Diaper Diaper Diaper Incontinent Incontinent Incontinent External Catheter External Catheter External Catheter # Voids 2 3 - Exam GENERAL DESCRIPTION: Middle-age female lying in bed in no distress RESPIRATORY SYSTEM: Unlabored breathing , decreased breath sounds at bases HEART: S1 S2 regular rate and rhythm , ABDOMEN: Soft , no tenderness EXTREMITIES: Right lower extremity swelling minimal redness no drainage - Labs CBC & Chem 7: 04/25/24 07:52 04/25/24 07:52 Labs: Abnormal Lab Results - Last 24 Hours (Table) 04/24/24 04/24/24 04/24/24 Range/Units 07:24 20:23 23:32 RBC (3.80-5.40) m/uL Hgb (11.4-16.0) gm/dL Hct (34.0-46.0) % MCV (80.0-100.0) fL RDW (11.5-15.5) % APTT 39.5 H (22.0-30.0) sec Sodium (137-145) mmol/L Carbon Dioxide (22-30) mmol/L POC Glucose (mg/dL) 120 H (70-110) mg/dL AST (14-36) U/L Procalcitonin 0.61 H (0.02-0.50) ng/mL 04/25/24 04/25/24 04/25/24 Range/Units 07:52 07:52 12:04 RBC 2.81 L (3.80-5.40) m/uL Hgb 9.1 L (11.4-16.0) gm/dL Hct 29.0 L (34.0-46.0) % MCV 103.3 H (80.0-100.0) fL RDW 19.2 H (11.5-15.5) % APTT (22.0-30.0) sec Sodium 136 L (137-145) mmol/L Carbon Dioxide 31 H (22-30) mmol/L POC Glucose (mg/dL) 127 H (70-110) mg/dL AST 43 H (14-36) U/L Procalcitonin (0.02-0.50) ng/mL Microbiology - Last 24 Hours (Table) 04/23/24 14:26 Blood Culture - Preliminary Blood Assessment and Plan (1) Cellulitis of right leg Current Visit: Yes Status: Acute Code(s): L03.115 - CELLULITIS OF RIGHT LOWER LIMB SNOMED Code(s): 48312811146586681 Plan: 1patient presented hospital with generalized weakness increasing shortness of breath patient also have diffuse swelling to the right lower extremity and erythema concerning for cellulitis likely from gram-positive skin vahid 2-patient did have a low-grade fever this morning white count is normal we will continue with cefazolin will benefit from Will wrap for compression to get the swelling down Dictation was produced using [employer] dictation software. please excuse any grammatical, word or spelling errors. Time with Patient: Less than 30
[2024-04-26 05:58] LABS: Glucose,Whole Blood 105 mg/dL (70-110)
--- NOTE | 2024-04-26 07:37 | XR ---
EXAMINATION TYPE: XR chest 1V portable DATE OF EXAM: 04/26/2024 COMPARISON: 04/24/2024 CLINICAL INDICATION: Female, 48 years old with history of CHF; , TECHNIQUE: XR chest 1V portable views of the chest. FINDINGS: No sizable pneumothorax. Tiny right pleural effusion. Improving interstitial.. The heart is enlarged but no overt failure. Osseous structures demonstrate hypertrophic and degenerative changes of the spi ne. IMPRESSION: 1. Improving interstitial pattern suggestive of improving venous congestion. [facility], , 04/26/2024 7:35 AM
[2024-04-26 12:28] LABS: Glucose,Whole Blood 131 mg/dL (70-110)
--- NOTE | 2024-04-26 13:26 | P.PN ---
Subjective Progress Note Date: 04/26/24 Principal diagnosis: Acute on chronic hypoxic respiratory failure secondary to acute congestive heart failure, ejection fraction is unknown. This is a 48-year-old female patient with a known history of diabetes mellitus, hypothyroidism, peripheral vascular disease, nonhealing wound of the left lower extremity status post left wkeyz-ban-szpl amputation, chronic respiratory mile [place] on home oxygen, former smoker, bipolar disorder. The patient was admitted on February 11, 2024 to [facility] and was 47 days there most of which was in the intensive care unit. She was then transferred to [facility] in [place] for 2-1/2 weeks. She then was readmitted and intubated for 14 days and had a trachostomy tube placement for 5 days and it was subsequently dislodged and left out according to the patient's sister who is at the bedside. From there she was transferred to [facility]. She was brought here to the emergency room yesterday after being found hypoxic, lethargic and hypotensive. She did have episodes of vomiting as well. Chest x- ray reveals cardiomegaly with mild congestive heart failure and small bilateral effusions. White count 7.6. Hemoglobin 9.5. Platelets 231. INR 1.2. D-dimer 1.19. Sodium 137. Initial potassium 7.0. Currently 5.1. She did receive Lokelma. Bicarb 27. BUN 10. Creatinine 0.83. Glucose 101. AST 40. ALT 40. Troponin 0.177, 0.226, 0.244. proBNP 20,000. Viral screen is negative. She has been initiated on a heparin drip. Lasix 40 mg IV every 12 hours. She is seen today in consultation in the emergency department. She has more awake and alert. She does have some nausea and vomiting. She was initiated on a BiPAP 14/6 and 50% FiO2. Slightly tachycardic. Blood pressure stable. Temperature 99.9 axillary. Procalcitonin pending. She will be initiated on Zosyn for now. The patient is seen today April 25, 2024 in follow-up on the selective care unit. She is currently resting in bed. Awake and alert in no acute distress. She is maintaining O2 saturations in the 90s on 5 L/min per nasal cannula. She did utilize BiPAP 14/6 and 50% FiO2 through the night. She is afebrile. Hemod ynamically stable. CT angiogram revealed no evidence of pulmonary embolism. Limited evaluation of the segmental and subsegmental branches. Cardiomegaly with pulmonary vascular congestion and low lung volumes. Hepatic steatosis. White count 7.0. Hemoglobin 9.1. Platelets 218. Sodium 136. Potassium 4.6. Bicarb 31. BUN 11. Creatinine 0.78. GFR greater than 90. AST 43. ALT 26. Calcitonin 0.61. She remains on a heparin drip for a troponin leak. She remains on cefazolin for cellulitis of the right leg. She remains on Lasix 40 mg IV every 12 hours. Incontinent of urine. No accurate I&O. Patient was seen today on 04/26/2024, x-ray is showing significant improvement in her interstitial pattern suggestive of improving venous congestion. Clinically the patient is feeling better breathing easier off BiPAP, on 5 L nasal cannula with O2 sats of 97%. CBC is normal WBC count is 7 hemoglobin 9.1 basic metabolic profile and renal profile are normal. Procalcitonin level is 0.61, patient remains empirically on antibiotics. Objective - Vital Signs Vital signs: Vital Signs Temp 96.5 F L 04/26/24 08:00 Pulse 103 H 04/26/24 12:00 Resp 16 04/26/24 12:00 BP 132/82 04/26/24 12:00 Pulse Ox 97 04/26/24 12:00 FiO2 50 04/24/24 15:13 Intake & Output 04/25/24 04/26/24 04/26/24 18:59 06:59 18:59 Intake Total 543.252 20 232 Output Total 2100 1200 Balance 543.252 -2080 -968 Weight 135.5 kg Intake: IV 10 20 10 Invasive Line 1 10 20 10 Intake, IV Titration 193.252 Amount Heparin Sod,Pork in 0.45% 193.252 NaCl 25,000 unit In 0.45 % NaCl 1 250ml.bag @ 7. 474 UNITS/KG/HR 10.001 mls/hr IV .Q24H [facility] Rx#: [id number] Oral 340 222 Output: Urine 2000 1100 Stool 100 100 Other: Voiding Method Diaper Diaper Diaper Incontinent Incontinent Incontinent External Catheter External Catheter External Catheter # Voids 3 # Bowel Movements 1 - Exam GENERAL EXAM: Revealed 48-year-old female in no distress, on 5 L nasal cannula HEAD: Normocephalic. EYES: Normal reaction of pupils, equal size. NOSE: Clear with pink turbinates. THROAT: No erythema or exudates. NECK: No masses, no JVD. CHEST: No chest wall deformity. LUNGS: Minich breath sounds at the bases no crackles rhonchi or wheezes CVS: S1 and S2 normal with no audible murmur, regular rhythm. ABDOMEN: No hepatosplenomegaly, normal bowel sounds, no guarding or rigidity. SKIN: No rashes CENTRAL NERVOUS SYSTEM: No focal deficits, tone is normal in all 4 extremities. EXTREMITIES: Left gfrtc-eos-hiwm amputation. Cellulitis of the right leg. There is 1-2+ peripheral edema. No clubbing, no cyanosis. Peripheral pulses are intact. - Labs CBC & Chem 7: 04/25/24 07:52 04/25/24 07:52 Labs: Abnormal Lab Results - Last 24 Hours (Table) 04/25/24 04/25/24 04/26/24 Range/Units 16:55 20:16 12:27 POC Glucose (mg/dL) 128 H 169 H 131 H (70-110) mg/dL Microbiology - Last 24 Hours (Table) 04/23/24 14:26 Blood Culture - Preliminary Blood Assessment and Plan Assessment: Impression: Acute on chronic hypoxemic respiratory failure secondary to suspected diastolic versus systolic congestive heart failure. proBNP 20,000. CT angiogram ruled out pulmonary embolism. There is cardiomegaly with pulmonary vascular conges tion and low lung volumes. Underlying pneumonia is not entirely ruled out, I felt this is less likely and the elevated procalcitonin level is because of her cellulitis. Considering the significant improvement in her chest x-ray basically overnight that speaks in favor of pulmonary edema as the patient is getting diuresed and responding well to diuresis. Cellulitis of the right lower extremity currently on cefazolin, procalcitonin 0.61 Troponin leak, currently on a heparin drip Hyperkalemia requiring Lokelma, currently improved at 4.6 Anemia, likely chronic in nature it is chronically ill and she is bed bound, had recent prolonged hospitalizations. Morbid obesity and suspected obesity/hypoventilation syndrome/obstructive sleep apnea Admitted February 11, 2024 with a 47-day length of stay at [facility] at one point intubated for 14 days, status post tracheostomy tube x 5 days which became possibly dislodged and remains out. 2-1/2-week stay at [facility] and subsequently transferred to [facility] History of left bbocq-vcn-orgu amputation due to infection approximately 5 years ago Bipolar disorder Diabetes mellitus Hypothyroidism Hyperlipidemia Hepatic steatosis Recommendation: Continue diuretics Continue cefazolin Awaiting the results of her echocardiogram Continue [facility] Continue on heparin as per cardiology recommendation We will continue to follow Time with Patient: Less than 30
--- NOTE | 2024-04-26 14:44 | P.PN ---
Subjective Progress Note Date: 04/26/24 patient is a 48-year-old lady with past medical history significant for respiratory failure, obesity ventilation syndrome, who is a [facility] a [facility] brought to the ER because of worsening shortness of breath. Patient apparently is bedbound at baseline. Patient was complaining of shortness of breath. Patient also complaining of cough there was no complaint of chest pain. There is no complaint of orthopnea or PND. There is no complaint of fever or chills. Because of shortness of breath, patient was brought to the ER Initial lab work done in the ER showed WBC 9.7, hemoglobin 10.2, platelet count 273, VBG shows pH 7.2, pCO2 72, bicarb 28, sodium 136, potassium 7, BUN 9, creatinine 0.90, glucose 126, troponin 0.177 Influenza A not detected Influenza B not detected RSV not detected COVID-19 not detected EKG done in the ER showed heart rate of 101, no ST segment elevation or depression seen, no T-wave inversions seen. Chest x-ray done in the ER showed cardiomegaly with mild CHF with small lateral pleural effusions Patient admitted to internal medicine service 04/25. Patient seen and examined. blood work done this morning showed WBC 7, hemonine 0.1, platelet count 218, sodium 130s, potassium 4.6, BUN 11, creatinine 0.78. Patient stated breathing has improved. Currently on 5 L of oxygen. CTA chest done showed pulm vascular congestion and cardiomegaly with no evidence of PE 04/26. Patient seen examined. Breathing is improving. Denies chest pain. De nies lightheaded or dizziness. REVIEW OF SYSTEMS: CONSTITUTIONAL: No fever, no malaise,. CARDIOVASCULAR: No chest pain, no palpitations, no syncope. PULMONARY: No shortness of breath, no cough, GASTROINTESTINAL: No diarrhea, no nausea, no vomiting, no abdominal pain. NEUROLOGICAL: No headaches, no weakness, PHYSICAL EXAMINATION: GENERAL: The patient is alert , ill looking HEENT: Pupils are round and equally reacting to light. EOMI. No scleral icterus. No conjunctival pallor. Normocephalic, atraumatic. No pharyngeal erythema. No thyromegaly. CARDIOVASCULAR: S1 and S2 present. No murmurs, rubs, or gallops. PULMONARY: Coarse breath sounds bilaterally, no crackles, no wheeze ABDOMEN: Soft, nontender, nondistended, normoactive bowel sounds. No palpable organomegaly. 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 NEUROLOGICAL: Gross neurological examination did not reveal any focal deficits. SKIN: No rashes. Assessment and plan Acute hypoxemic hypercapnic respiratory failure Acute CHF Right lower extremity cellulitis Elevated troponin Hyperkalemia Obesity Hypothyroidism Hyperlipidemia Diabetes mellitus Monitor vital signs Monitor CBC Monitor CMP Continue telemetry monitoring Continue oxygen supplementation Aggressive bronchopulmonary hygiene Ordered 2D echo Strict I's and O's, daily weights,IV Lasix 40 g every 12 Continue IV cefazolin Cardiology following Pulmonology following Labs and medication were reviewed.. Continue same treatment. Continue with symptomatic treatment. Resume home medication. Monitor labs and vitals. DVT and GI prophylaxis. Further recommendations as per clinical course of the patient Dictation was produced using [employer] dictation software. please excuse any grammatical, word or spelling errors. Objective - Vital Signs Vital signs: Vital Signs Temp 96.5 F L 04/26/24 08:00 Pulse 103 H 04/26/24 12:00 Resp 16 04/26/24 12:00 BP 132/82 04/26/24 12:00 Pulse Ox 97 04/26/24 12:00 FiO2 50 04/24/24 15:13 Intake & Output 04/25/24 04/26/24 04/26/24 18:59 06:59 18:59 Intake Total 543.252 20 482 Output Total 2100 1200 Balance 543.252 -2080 -718 Weight 135.5 kg Intake: IV 10 20 20 Invasive Line 1 10 20 20 Intake, IV Titration 193.252 Amount Heparin Sod,Pork in 0.45% 193.252 NaCl 25,000 unit In 0.45 % NaCl 1 250ml.bag @ 7. 474 UNITS/KG/HR 10.001 mls/hr IV .[facility]H [facility] Rx#: [id number] Oral 340 462 Output: Urine 2000 1100 Stool 100 100 Other: Voiding Method Diaper Diaper Diaper Incontinent Incontinent Incontinent External Catheter External Catheter External Catheter # Voids 3 # Bowel Movements 1 - Labs CBC & Chem 7: 04/25/24 07:52 04/25/24 07:52 Labs: Abnormal Lab Results - Last 24 Hours (Table) 04/25/24 04/25/24 04/26/24 Range/Units 16:55 20:16 12:27 POC Glucose (mg/dL) 128 H 169 H 131 H (70-110) mg/dL Microbiology - Last 24 Hours (Table) 04/23/24 14:26 Blood Culture - Preliminary Blood
--- NOTE | 2024-04-26 15:37 | P.PN ---
Subjective Progress Note Date: 04/26/24 Principal diagnosis: Reason for follow-up is right leg cellulitis Patient is a 48-year-old female with a past medical history of again for diabetes mellitus peripheral vascular disease and did have left gssxg-ays-sgbb amputation chronic respiratory failure on home O2 patient has been brought into the hospital for evaluation of increasing shortness of breath patient also having increasing swelling to the right lower extremity with some redness concerning for cellulitis prompting this consultation. On today's evaluation that is 04/26/2024,the patient remains to be afebrile, patient is on 5 L supplemental oxygen and denies any shortness of breath no chest pain or cough.Patient denies having any nausea or vomiting, no abdominal pain and no diarrhea has been reported denies worsening pain with right leg patient has refused Will wrap. No new lab has been repeated today Objective - Vital Signs Vital signs: Vital Signs Temp 96.5 F L 04/26/24 08:00 Pulse 103 H 04/26/24 12:00 Resp 16 04/26/24 12:00 BP 132/82 04/26/24 12:00 Pulse Ox 97 04/26/24 12:00 FiO2 50 04/24/24 15:13 Intake & Output 04/25/24 04/26/24 04/26/24 18:59 06:59 18:59 Intake Total 543.252 20 482 Output Total 2100 1500 Balance 543.252 -2080 -1018 Weight 135.5 kg Intake: IV 10 20 20 Invasive Line 1 10 20 20 Intake, IV Titration 193.252 Amount Heparin Sod,Pork in 0.45% 193.252 NaCl 25,000 unit In 0.45 % NaCl 1 250ml.bag @ 7. 474 UNITS/KG/HR 10.001 mls/hr IV .Q24H [facility] Rx#: [id number] Oral 340 [id number] Output: Urine 2000 1400 Stool 100 100 Other: Voiding Method Diaper Diaper Diaper Incontinent Incontinent Incontinent External Catheter External Catheter External Catheter # Voids 3 # Bowel Movements 1 - Exam GENERAL DESCRIPTION: Middle-age female lying in bed in no distress RESPIRATORY SYSTEM: Unlabored breathing , decreased breath sounds at bases HEART: S1 S2 regular rate and rhythm , ABDOMEN: Soft , no tenderness EXTREMITIES: Right lower extremity swelling minimal redness no drainage - Labs CBC & Chem 7: 04/25/24 07:52 04/25/24 07:52 Labs: Abnormal Lab Results - Last 24 Hours (Table) 04/25/24 04/25/24 04/26/24 Range/Units 16:55 20:16 12:27 POC Glucose (mg/dL) 128 H 169 H 131 H (70-110) mg/dL Microbiology - Last 24 Hours (Table) 04/23/24 14:26 Blood Culture - Preliminary Blood Assessment and Plan (1) Cellulitis of right leg Current Visit: Yes Status: Acute Code(s): L03.115 - CELLULITIS OF RIGHT LOWER LIMB SNOMED Code(s): 69294337431007583 Plan: 1patient presented hospital with generalized weakness increasing shortness of b reath patient also have diffuse swelling to the right lower extremity and erythema concerning for cellulitis likely from gram-positive skin vahid 2-patient did have resolution of fever, white count is normal we will continue with cefazolin will benefit from Will wrap for compression however the patient is currently refusing Dictation was produced using [employer] dictation software. please excuse any g rammatical, word or spelling errors. Time with Patient: Less than 30
--- NOTE | 2024-04-26 15:44 | P.PN ---
Subjective Progress Note Date: 04/26/24 HISTORY OF PRESENTING ILLNESS 48-year-old female with multiple comorbidities. [facility]. She presented to the hospital because of acute on chronic hypoxic and hypercapnic respiratory failure. Patient is apparently bedbound at baseline. She has left above-knee amputation. Right lower extremity has chronic partially healed leg ulcer on [place]. On admission patient had increased worsening shortness of breath, cough. She denies having any chest pain or orthopnea or paroxysmal nocturnal dyspnea. Admission labs shows hemoglobin 10.2, WBC 9.7, platelet 273, macrocytosis, Sodium 136. Potassium was 6.1 on admission, repeat 5.1. BUN 9, creatinine 0.9, Trope is elevated at 0.12, 0.22, 0.24. Progress note 04/26/2024 Patient is seen and examined at bedside this a.m. Clinically improved, still short of breath, fluid status seems to be improved. Right lower extremity appears to have cellulitis with a nonhealing ulcer. Social Hx: long-term resident Family Hx: non contributary to current clinical scenario REVIEW OF SYSTEMS 14 point review of system is negative except what is mentioned above in HPI. PHYSICAL EXAMINATION Neck: Brisk carotid upstroke, no jugular venous distention. Lungs: Crackles and rhonchi audible. On BiPAP Heart: Regular rate and rhythm, S1-S2, no S3, no murmur or rub. Abdomen: Soft nontender, positive bowel sounds. Extremities: Right lower extremity has 1-2+ pitting edema, erythema on [place] with a partially healed ulcer. Left lower extremity has above-knee amputation. Neuro: Awake, slightly confused, lethargic, following one-step commands. Detailed neuro exam was not performed. 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 PLAN Aspirin 81 mg, Lipitor 20 mg Lasix 40 mg IV twice daily Agree with BiPAP support, infectious workup Further recommendations to follow Prognosis guarded. Objective - Vital Signs Vital signs: Vital Signs Temp 96.5 F L 04/26/24 08:00 Pulse 103 H 04/26/24 12:00 Resp 16 04/26/24 12:00 BP 132/82 04/26/24 12:00 Pulse Ox 97 04/26/24 12:00 FiO2 50 04/24/24 15:13 Intake & Output 04/25/24 04/26/24 04/26/24 18:59 06:59 18:59 Intake Total 543.252 20 482 Output Total 2100 1500 Balance 543.252 -2080 -1018 Weight 135.5 kg Intake: IV 10 20 20 Invasive Line 1 10 20 20 Intake, IV Titration 193.252 Amount Heparin Sod,Pork in 0.45% 193.252 NaCl 25,000 unit In 0.45 % NaCl 1 250ml.bag @ 7. 474 UNITS/KG/HR 10.001 mls/hr IV .Q24H [facility] Rx#: [id number] Oral 340 [id number] Output: Urine 2000 1400 Stool 100 100 Other: Voiding Method Diaper Diaper Diaper Incontinent Incontinent Incontinent External Catheter External Catheter External Catheter # Voids 3 # Bowel Movements 1 - Labs CBC & Chem 7: 04/25/24 07:52 04/25/24 07:52 Labs: Abnormal Lab Results - Last 24 Hours (Table) 04/25/24 04/25/24 04/26/24 Range/Units 16:55 20:16 12:27 POC Glucose (mg/dL) 128 H 169 H 131 H (70-110) mg/dL Microbiology - Last 24 Hours (Table) 04/23/24 14:26 Blood Culture - Preliminary Blood
[2024-04-26 16:55] LABS: Glucose,Whole Blood 116 mg/dL (70-110)
[2024-04-26 20:17] LABS: Glucose,Whole Blood 118 mg/dL (70-110)
[2024-04-27 06:17] LABS: Glucose,Whole Blood 112 mg/dL (70-110)
[2024-04-27] MEDS: SPIRONOLACTONE 25 MG TAB PO SCH (08:24)
[2024-04-27 08:31] LABS: African American GFR (CKD) >90 (>60 ml/min/1.73 sqM); Blood Urea Nitrogen 7 mg/dL (7-17); Calcium 8.2 mg/dL (8.4-10.2); Chloride 92 mmol/L (98-107); Glucose 77 mg/dL (74-99); Magnesium 1.4 mg/dL (1.6-2.3); Non-African American GFR(CKD) >90 (>60 ml/min/1.73 sqM); Potassium 3.2 mmol/L (3.5-5.1); Sodium 137 mmol/L (137-145)
[2024-04-27 08:37] LABS: Anion Gap 10 mmol/L
[2024-04-27 08:53] LABS: Carbon Dioxide 35 mmol/L (22-30)
[2024-04-27 11:57] LABS: Glucose,Whole Blood 113 mg/dL (70-110)
[2024-04-27] MEDS ORDERED: POTASSIUM CHLORIDE ER 20 MEQ TAB.ER PO STA (12:49)
[2024-04-27] MEDS: MAGNESIUM SULFATE-D5W PMX 1 GM in DEXTROSE/WATER 1 100ML.BAG IVPB SCH (13:06)
--- NOTE | 2024-04-27 13:48 | P.PN ---
Subjective Progress Note Date: 04/27/24 Principal diagnosis: Acute on chronic hypoxic respiratory failure secondary to acute congestive heart failure, ejection fraction is unknown. This is a 48-year-old female patient with a known history of diabetes mellitus, hypothyroidism, peripheral vascular disease, nonhealing wound of the left lower extremity status post left tkitu-jyj-kynr amputation, chronic respiratory [place] on home oxygen, former smoker, bipolar disorder. The patient was admitted on February 11, 2024 to [facility] and was 47 days there most of which was in the intensive care unit. She was then transferred to [facility] in [place] for 2-1/2 weeks. She then was readmitted and intubated for 14 days and had a trachostomy tube placement for 5 days and it was subsequently dislodged and left out according to the patient's sister who is at the bedside. From there she was transferred to [facility]. She was brought here to the emergency room yesterday after being found hypoxic, lethargic and hypotensive. She did have episodes of vomiting as well. Chest x- ray reveals cardiomegaly with mild congestive heart failure and small bilateral effusions. White count 7.6. Hemoglobin 9.5. Platelets 231. INR 1.2. D-dimer 1.19. Sodium 137. Initial potassium 7.0. Currently 5.1. She did receive Lokelma. Bicarb 27. BUN 10. Creatinine 0.83. Glucose 101. AST 40. ALT 40. Troponin 0.177, 0.226, 0.244. proBNP 20,000. Viral screen is negative. She has been initiated on a heparin drip. Lasix 40 mg IV every 12 hours. She is seen today in consultation in the emergency department. She has more awake and alert. She does have some nausea and vomiting. She was initiated on a BiPAP 14/6 and 50% FiO2. Slightly tachycardic. Blood pressure stable. Temperature 99.9 axillary. Procalcitonin pending. She will be initiated on Zosyn for now. The patient is seen today April 25, 2024 in follow-up on the selective care unit. She is currently resting in bed. Awake and alert in no acute distress. She is maintaining O2 saturations in the 90s on 5 L/min per nasal cannula. She did utilize BiPAP 14/6 and 50% FiO2 through the night. She is afebrile. Hemod ynamically stable. CT angiogram revealed no evidence of pulmonary embolism. Limited evaluation of the segmental and subsegmental branches. Cardiomegaly with pulmonary vascular congestion and low lung volumes. Hepatic steatosis. White count 7.0. Hemoglobin 9.1. Platelets 218. Sodium 136. Potassium 4.6. Bicarb 31. BUN 11. Creatinine 0.78. GFR greater than 90. AST 43. ALT 26. Calcitonin 0.61. She remains on a heparin drip for a troponin leak. She remains on cefazolin for cellulitis of the right leg. She remains on Lasix 40 mg IV every 12 hours. Incontinent of urine. No accurate I&O. Patient was seen today on 04/26/2024, x-ray is showing significant improvement in her interstitial pattern suggestive of improving venous congestion. Clinically the patient is feeling better breathing easier off BiPAP, on 5 L nasal cannula with O2 sats of 97%. CBC is normal WBC count is 7 hemoglobin 9.1 basic metabolic profile and renal profile are normal. Procalcitonin level is 0.61, patient remains empirically on antibiotics. Patient was seen today on 04/27/2024, seems to be doing much better from the pulmonary perspective, hardly any pulmonary symptoms no cough no wheezing no s hortness of breath. Patient responded quite well to antibiotics and diuretics. Her chest x-ray drastically improved overnight after diuresis. Patient is on 5 L nasal cannula now O2 sat is 94%, blood pressure is stable,Remains in negative fluid balance since admission. Labs today were reviewed, potassium is a bit low at 3.2 otherwise labs are unremarkable. Objective - Vital Signs Vital signs: Vital Signs Temp 98.1 F 04/27/24 11:16 Pulse 98 04/27/24 13:38 Resp 16 04/27/24 13:38 BP 119/72 04/27/24 11:16 Pulse Ox 94 L 04/27/24 11:16 FiO2 50 04/24/24 15:13 Intake & Output 04/26/24 04/27/24 04/27/24 18:59 06:59 18:59 Intake Total 482 20 716 Output Total 1850 1600 1650 Balance -5308 -1350 -934 Weight 129 kg Intake: IV 20 20 20 Invasive Line 1 20 20 20 Oral [id number] Output: Urine 1750 1600 1650 Stool 100 Other: Voiding Method Diaper Diaper Diaper Incontinent Incontinent Incontinent External Catheter External Catheter External Catheter - Exam GENERAL EXAM: Revealed 48-year-old female in no distress, on 5 L nasal cannula HEAD: Normocephalic. EYES: Normal reaction of pupils, equal size. NOSE: Clear with pink turbinates. THROAT: No erythema or exudates. NECK: No masses, no JVD. CHEST: No chest wall deformity. LUNGS: Minich breath sounds at the bases no crackles rhonchi or wheezes CVS: S1 and S2 normal with no audible murmur, regular rhythm. ABDOMEN: No hepatosplenomegaly, normal bowel sounds, no guarding or rigidity. SKIN: No rashes CENTRAL NERVOUS SYSTEM: No focal deficits, EXTREMITIES: Left nwhqb-fcw-ipiw amputation. Cellulitis of the right leg. There is 1-2+ peripheral edema. No clubbing, no cyanosis. Peripheral pulses are intact. - Labs CBC & Chem 7: 04/25/24 07:52 04/27/24 07:22 Labs: Abnormal Lab Results - Last 24 Hours (Table) 04/26/24 04/26/24 04/26/24 Range/Units 08:44 16:52 20:15 ESR 59 H (0-20) mm/Hr Potassium (3.5-5.1) mmol/L Chloride (98-107) mmol/L Carbon Dioxide (22-30) mmol/L POC Glucose (mg/dL) 116 H 118 H (70-110) mg/dL Calcium (8.4-10.2) mg/dL Magnesium (1.6-2.3) mg/dL 04/27/24 04/27/24 04/27/24 Range/Units 06:15 07:22 11:55 ESR (0-20) mm/Hr Potassium 3.2 L (3.5-5.1) mmol/L Chloride 92 L (98-107) mmol/L Carbon Dioxide 35 H (22-30) mmol/L POC Glucose (mg/dL) 112 H 113 H (70-110) mg/dL Calcium 8.2 L (8.4-10.2) mg/dL Magnesium 1.4 L (1.6-2.3) mg/dL Microbiology - Last 24 Hours (Table) 12/23/24 14:26 Blood Culture - Preliminary Blood Assessment and Plan Assessment: Impression: Acute on chronic hypoxemic respiratory failure secondary to suspected diastolic versus systolic congestive heart failure. proBNP 20,000. CT angiogram ruled out pulmonary embolism. There is cardiomegaly with pulmonary vascular congestion and low lung volumes. Underlying pneumonia is not entirely ruled out, I felt this is less likely and the elevated procalcitonin level is because of her cellulitis. Considering the significant improvement in her chest x-ray basically overnight that speaks in favor of pulmonary edema as the patient is getting diuresed and responding well to diuresis. Cellulitis of the right lower extremity currently on cefazolin, procalcitonin 0.61 Troponin leak, currently on a heparin drip Hyperkalemia requiring Lokelma, currently improved at 4.6 Anemia, likely chronic in nature it is chronically ill and she is bed bound, had recent prolonged hospitalizations. Morbid obesity and suspected obesity/hypoventilation syndrome/obstructive sleep apnea Admitted February 11, 2024 with a 47-day length of stay at [facility] at one point intubated for 14 days, status post tracheostomy tube x 5 days which became possibly dislodged and remains out. 2-1/2-week stay at [facility] and subsequently transferred to [facility] History of left [id number] amputation due to infection approximately 5 years ago Bipolar disorder Diabetes mellitus Hypothyroidism Hyperlipidemia Hepatic steatosis Recommendation: Continue diuretics Continue cefazolin for cellulitis Echocardiogram showed good LV function Continue [facility] Continue antibiotics as per infectious disease/cefazolin Patient will likely need placement upon discharge. We will continue to follow Time with Patient: Less than 30
--- NOTE | 2024-04-27 14:29 | P.PN ---
Subjective Progress Note Date: 04/27/24 patient is a 48-year-old lady with past medical history significant for respiratory failure, obesity ventilation syndrome, who is a resident of a care home facility brought to the ER because of worsening shortness of breath. Patient apparently is bedbound at baseline. Patient was complaining of shortness of breath. Patient also complaining of cough there was no complaint of chest pain. There is no complaint of orthopnea or PND. There is no complaint of fever or chills. Because of shortness of breath, patient was brought to the ER Initial lab work done in the ER showed WBC 9.7, hemoglobin 10.2, platelet count 273, VBG shows pH 7.2, pCO2 72, bicarb 28, sodium 136, potassium 7, BUN 9, creatinine 0.90, glucose 126, troponin 0.177 Influenza A not detected Influenza B not detected RSV not detected COVID-19 not detected EKG done in the ER showed heart rate of 101, no ST segment elevation or depression seen, no T-wave inversions seen. Chest x-ray done in the ER showed cardiomegaly with mild CHF with small lateral pleural effusions Patient admitted to internal medicine service 04/25. Patient seen and examined. blood work done this morning showed WBC 7, hemonine 0.1, platelet count 218, sodium 130s, potassium 4.6, BUN 11, creatinine 0.78. Patient stated breathing has improved. Currently on 5 L of oxygen. CTA chest done showed pulm vascular congestion and cardiomegaly with no evidence of PE 04/26. Patient seen examined. Breathing is improving. Denies chest pain. De nies lightheaded or dizziness. 04/27. Patient seen and examined. Blood work this morning showed sodium 137 potassium 3.2, BUN 7, creatinine 0.59. Patient states breathing has improved. Patient is diuresing well. Still having right lower extremity pain REVIEW OF SYSTEMS: CONSTITUTIONAL: No fever, no malaise,. CARDIOVASCULAR: No chest pain, no palpitations, no syncope. PULMONARY: No shortness of breath, no cough, GASTROINTESTINAL: No diarrhea, no nausea, no vomiting, no abdominal pain. NEUROLOGICAL: No headaches, no weakness, PHYSICAL EXAMINATION: GENERAL: The patient is alert , ill looking HEENT: Pupils are round and equally reacting to light. EOMI. No scleral icterus. No conjunctival pallor. Normocephalic, atraumatic. No pharyngeal erythema. No thyromegaly. CARDIOVASCULAR: S1 and S2 present. No murmurs, rubs, or gallops. PULMONARY: Coarse breath sounds bilaterally, no crackles, no wheeze ABDOMEN: Soft, nontender, nondistended, normoactive bowel sounds. No palpable organomegaly. 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 NEUROLOGICAL: Gross neurological examination did not reveal any focal deficits. SKIN: No rashes. Assessment and plan Acute hypoxemic hypercapnic respiratory failure Acute CHF Right lower extremity cellulitis Elevated troponin Hyperkalemia Obesity Hypothyroidism Hyperlipidemia Diabetes mellitus Monitor vital signs Monitor CBC Monitor CMP Continue telemetry monitoring Continue oxygen supplementation Aggressive bronchopulmonary hygiene Strict I's and O's, daily weights,IV Lasix 40 g every 12 Continue IV cefazolin Cardiology following Pulmonology following ID following Labs and medication were reviewed.. Continue same treatment. Continue with symptomatic treatment. Resume home medication. Monitor labs and vitals. DVT and GI prophylaxis. Further recommendations as per clinical course of the patient Dictation was produced using [employer] dictation software. please excuse any grammatical, word or spelling errors. Objective - Vital Signs Vital signs: Vital Signs Temp 98.0 F 04/27/24 08:00 Pulse 92 04/27/24 08:00 Resp 16 04/27/24 08:00 BP 109/60 04/27/24 08:00 Pulse Ox 94 L 04/27/24 09:27 FiO2 50 04/24/24 15:13 Intake & Output 04/26/24 04/27/24 04/27/24 18:59 06:59 18:59 Intake Total 482 20 222 Output Total 1850 1600 1650 Balance -1368 -1580 -1428 Weight 129 kg Intake: IV 20 20 Invasive Line 1 20 20 Oral [id number] Output: Urine 1750 1600 1650 Stool 100 Other: Voiding Method Diaper Diaper Incontinent Incontinent External Catheter External Catheter - Labs CBC & Chem 7: 04/25/24 07:52 04/27/24 07:22 Labs: Abnormal Lab Results - Last 24 Hours (Table) 04/26/24 04/26/24 04/26/24 Range/Units 08:44 12: 16:52 ESR 59 H (0-20) mm/Hr Potassium (3.5-5.1) mmol/L Chloride (98-107) mmol/L Carbon Dioxide (22-30) mmol/L POC Glucose (mg/dL) 131 H 116 H (70-110) mg/dL Calcium (8.4-10.2) mg/dL Magnesium (1.6-2.3) mg/dL 04/26/24 04/27/24 04/27/24 Range/Units 20:15 06:15 07:22 ESR (0-20) mm/Hr Potassium 3.2 L (3.5-5.1) mmol/L Chloride 92 L (98-107) mmol/L Carbon Dioxide 35 H (22-30) mmol/L POC Glucose (mg/dL) 118 H 112 H (70-110) mg/dL Calcium 8.2 L (8.4-10.2) mg/dL Magnesium 1.4 L (1.6-2.3) mg/dL Microbiology - Last 24 Hours (Table) 04/23/24 14:26 Blood Culture - Preliminary Blood
--- NOTE | 2024-04-27 15:03 | P.PN ---
Subjective HISTORY OF PRESENT ILLNESS: HPI: Per Dr. Silva 48-year-old female with multiple comorbidities. She is a resident of a half-way. She presented to the hospital because of acute on chronic hypoxic and hypercapnic respiratory failure. Patient is apparently bedbound at baseline. She has left above-knee amputation. Right lower extremity has chronic partially healed leg ulcer on [place]. On admission patient had increased worsening shortness of breath, cough. She denies having any chest pain or orthopnea or paroxysmal nocturnal dyspnea. Admission labs shows hemoglobin 10.2, WBC 9.7, platelet 273, macrocytosis, Sodium 136. Potassium was 6.1 on admission, repeat 5.1. BUN 9, creatinine 0.9, Trope is elevated at 0.12, 0.22, 0.24. Progress note 04/26/[address] Silva Patient is seen and examined at bedside this a.m. Clinically improved, still short of breath, fluid status seems to be improved. Right lower extremity appears to have cellulitis with a nonhealing ulcer. 04/27/2024 Patient examined this morning at the bedside. Patient states she is feeling much better today. She denies chest pain or pressure. She denies shortness of breath. Telemetry reveals sinus tachycardia with heart rate around 103. Magnesium and potassium are both low today. She remains on IV Lasix. PHYSICAL EXAM: VITAL SIGNS: Reviewed. GENERAL: Well-developed in no acute distress. NECK: Supple. No JVD or thyromegaly LUNGS: Respirations even and unlabored. Lungs essentially clear to auscultation bilaterally. HEART: Regular rate and rhythm. S1 and S2 heard. EXTREMITIES: Normal range of motion. No clubbing or cyanosis. Peripheral pulses intact. Left AKA. 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 PLAN: Discontinue IV Lasix. Begin oral Bumex 1 mg twice a day for 5 days then decrease to 1 mg daily Increase Aldactone to 25 mg daily Replace magnesium and potassium Continue additional cardiac medications No further inpatient recommendations from a cardiac standpoint We will sign off. Please reconsult if needed. Nurse practitioner note has been reviewed by physician. Signing provider agrees with the documented findings, assessment, and plan of care documented by [employer] as a scribe. Objective - Vital Signs Vital signs: Vital Signs Temp 98.1 F 04/27/24 11:16 Pulse 98 04/27/24 13:38 Resp 16 04/27/24 13:38 BP 119/72 04/27/24 11:16 Pulse Ox 94 L 04/27/24 11:16 FiO2 50 04/24/24 15:13 Intake & Output 04/26/24 04/27/24 04/27/24 18:59 06:59 18:59 Intake Total 482 20 716 Output Total 1850 1600 2250 Balance -1368 -1580 -1534 Weight 129 kg Intake: IV 20 20 20 Invasive Line 1 20 20 20 Oral [id number] Output: Urine 1750 1600 2250 Stool 100 Other: Voiding Method Diaper Diaper Diaper Incontinent Incontinent Incontinent External Catheter External Catheter External Catheter - Labs CBC & Chem 7: 04/25/24 07:52 04/27/24 07:22 Labs: Abnormal Lab Results - Last 24 Hours (Table) 04/26/24 04/26/24 04/26/24 Range/Units 08:44 16:52 20:15 ESR 59 H (0-20) mm/Hr Potassium (3.5-5.1) mmol/L Chloride (98-107) mmol/L Carbon Dioxide (22-30) mmol/L POC Glucose (mg/dL) 116 H 118 H (70-110) mg/dL Calcium (8.4-10.2) mg/dL Magnesium (1.6-2.3) mg/dL 04/27/24 04/27/24 04/27/24 Range/Units 06:15 07:22 11:55 ESR (0-20) mm/Hr Potassium 3.2 L (3.5-5.1) mmol/L Chloride 92 L (98-107) mmol/L Carbon Dioxide 35 H (22-30) mmol/L POC Glucose (mg/dL) 112 H 113 H (70-110) mg/dL Calcium 8.2 L (8.4-10.2) mg/dL Magnesium 1.4 L (1.6-2.3) mg/dL Microbiology - Last 24 Hours (Table) 04/23/24 14:26 Blood Culture - Preliminary Blood
--- NOTE | 2024-04-27 15:18 | P.PN ---
Subjective Progress Note Date: 04/27/24 Principal diagnosis: Reason for follow-up is right leg cellulitis Patient is a 48-year-old female with a past medical history of again for diabetes mellitus peripheral vascular disease and did have left slqpv-oqc-qapv amputation chronic respiratory failure on home O2 patient has been brought into the hospital for evaluation of increasing shortness of breath patient also having increasing swelling to the right lower extremity with some redness concerning for cellulitis prompting this consultation. On today's evaluation that is 04/27/2024, the patient continues to be afebrile, the patient is on 5 L nasal oxygen however breathing comfortably, the Pt denies having any chest pain or any worsening cough, the patient denies having any abdominal pain no vomiting or any diarrhea, pain to the right lower extremity is complaining of some pain to the right foot. Patient did have a creatinine 0.59 no CBC was done today blood culture has been negative Objective - Vital Signs Vital signs: Vital Signs Temp 98.1 F 04/27/24 11:16 Pulse 98 04/27/24 13:38 Resp 16 04/27/24 13:38 BP 119/72 04/27/24 11:16 Pulse Ox 94 L 04/27/24 11:16 FiO2 50 04/24/24 15:13 Intake & Output 04/26/24 04/27/24 04/27/24 18:59 06:59 18:59 Intake Total 482 20 716 Output Total 1850 1600 2250 Balance -0239 -5351 -2779 Weight 129 kg Intake: IV 20 20 20 Invasive Line 1 20 20 20 Oral [id number] Output: Urine 1750 1600 2250 Stool 100 Other: Voiding Method Diaper Diaper Diaper Incontinent Incontinent Incontinent External Catheter External Catheter External Catheter - Exam GENERAL DESCRIPTION: Middle-age female lying in bed in no distress RESPIRATORY SYSTEM: Unlabored breathing , decreased breath sounds at bases HEART: S1 S2 regular rate and rhythm , ABDOMEN: Soft , no tenderness EXTREMITIES: Right lower extremity swelling minimal redness no drainage - Labs CBC & Chem 7: 04/25/24 07:52 04/27/24 07:22 Labs: Abnormal Lab Results - Last 24 Hours (Table) 04/26/24 04/26/24 04/26/24 Range/Units 08:44 16:52 20:15 ESR 59 H (0-20) mm/Hr Potassium (3.5-5.1) mmol/L Chloride (98-107) mmol/L Carbon Dioxide (22-30) mmol/L POC Glucose (mg/dL) 116 H 118 H (70-110) mg/dL Calcium (8.4-10.2) mg/dL Magnesium (1.6-2.3) mg/dL 04/27/24 04/27/24 04/27/24 Range/Units 06:15 07:22 11:55 ESR (0-20) mm/Hr Potassium 3.2 L (3.5-5.1) mmol/L Chloride 92 L (98-107) mmol/L Carbon Dioxide 35 H (22-30) mmol/L POC Glucose (mg/dL) 112 H 113 H (70-110) mg/dL Calcium 8.2 L (8.4-10.2) mg/dL Magnesium 1.4 L (1.6-2.3) mg/dL Microbiology - Last 24 Hours (Table) 04/23/24 14:26 Blood Culture - Preliminary Blood Assessment and Plan (1) Cellulitis of right leg Current Visit: Yes Status: Acute Code(s): L03.115 - CELLULITIS OF RIGHT LOWER LIMB SNOMED Code(s): [id number] Plan: 1patient presented hospital with generalized weakness increasing shortness of breath patient also have diffuse swelling to the right lower extremity and e rythema concerning for cellulitis likely from gram-positive skin vahid 2-patient did have resolution of fever, white count is normal 3we will continue with cefazolin while inpatient and transition to oral antibiotics on discharge Dictation was produced using [employer] dictation software. please excuse any grammatical, word or spelling errors. Time with Patient: Less than 30
[2024-04-27] MEDS: POTASSIUM BICARBONATE/CIT AC 20 MEQ TABLET.EFF PO STA (16:03)
[2024-04-27] MEDS: BUMETANIDE 1 MG TAB PO SCH (16:03)
[2024-04-27 17:04] LABS: Glucose,Whole Blood 132 mg/dL (70-110)
[2024-04-27 20:13] LABS: Glucose,Whole Blood 138 mg/dL (70-110)
[2024-04-28 06:11] LABS: Glucose,Whole Blood 91 mg/dL (70-110)
[2024-04-28] MEDS: SPIRONOLACTONE 25 MG TAB PO SCH (08:27)
[2024-04-28 10:50] LABS: Anisocytosis Slight; Basophils % (A) 0 %; Eosinophils # (A) 0.4 k/uL (0-0.7); Eosinophils % (A) 5 %; HCT 34.4 % (34.0-46.0); HGB 10.3 gm/dL (11.4-16.0); Hypochromasia Marked; Lymphocytes # (A) 1.3 k/uL (1.0-4.8); Lymphocytes % (A) 16 %; MCH 31.9 pg (25.0-35.0); MCV 106.3 fL (80.0-100.0); Macrocytosis Marked; Mean Platelet Volume 7.5; Monocytes # (A) 0.5 k/uL (0-1.0); Monocytes % (A) 5 %; Neutrophils # (A) 5.8 k/uL (1.3-7.7); Neutrophils % (A) 70 %; Platelet Count 237 k/uL (150-450); Poikilocytosis Slight; RBC 3.24 m/uL (3.80-5.40); RDW 18.1 % (11.5-15.5); WBC 8.3 k/uL (3.8-10.6)
[2024-04-28 11:01] LABS: ALT 8 U/L (4-34); AST 24 U/L (14-36); African American GFR (CKD) >90 (>60 ml/min/1.73 sqM); Albumin 3.6 g/dL (3.5-5.0); Alkaline Phosphatase 102 U/L (38-126); Anion Gap 11 mmol/L; Blood Urea Nitrogen 6 mg/dL (7-17); Calcium 8.2 mg/dL (8.4-10.2); Carbon Dioxide 32 mmol/L (22-30); Chloride 91 mmol/L (98-107); Glucose 133 mg/dL (74-99); Magnesium 1.9 mg/dL (1.6-2.3); Non-African American GFR(CKD) >90 (>60 ml/min/1.73 sqM); Potassium 3.4 mmol/L (3.5-5.1); Sodium 134 mmol/L (137-145); Total Bilirubin <0.1 mg/dL (0.2-1.3); Total Protein 6.5 g/dL (6.3-8.2)
[2024-04-28 11:36] LABS: Glucose,Whole Blood 232 mg/dL (70-110)
--- NOTE | 2024-04-28 15:07 | P.PN ---
Subjective Progress Note Date: 04/28/24 patient is a 48-year-old lady with past medical history significant for respiratory failure, obesity ventilation syndrome, who is a resident of a [facility] facility brought to the ER because of worsening shortness of breath. Patient apparently is bedbound at baseline. Patient was complaining of shortness of breath. Patient also complaining of cough there was no complaint of chest pain. There is no complaint of orthopnea or PND. There is no complaint of fever or chills. Because of shortness of breath, patient was brought to the ER Initial lab work done in the ER showed WBC 9.7, hemoglobin 10.2, platelet count 273, VBG shows pH 7.2, pCO2 72, bicarb 28, sodium 136, potassium 7, BUN 9, creatinine 0.90, glucose 126, troponin 0.177 Influenza A not detected Influenza B not detected RSV not detected COVID-19 not detected EKG done in the ER showed heart rate of 101, no ST segment elevation or depression seen, no T-wave inversions seen. Chest x-ray done in the ER showed cardiomegaly with mild CHF with small lateral pleural effusions Patient admitted to internal medicine service 04/25. Patient seen and examined. blood work done this morning showed WBC 7, hemonine 0.1, platelet count 218, sodium 130s, potassium 4.6, BUN 11, creatinine 0.78. Patient stated breathing has improved. Currently on 5 L of oxygen. CTA chest done showed pulm vascular congestion and cardiomegaly with no evidence of PE 04/26. Patient seen examined. Breathing is improving. Denies chest pain. De nies lightheaded or dizziness. 04/27. Patient seen and examined. Blood work this morning showed sodium 137 potassium 3.2, BUN 7, creatinine 0.59. Patient states breathing has improved. Patient is diuresing well. Still having right lower extremity pain 04/28. Patient seen and examined. States she feels better. Still having nausea and vomiting. Denies any chest pain REVIEW OF SYSTEMS: CONSTITUTIONAL: No fever, no malaise,. CARDIOVASCULAR: No chest pain, no palpitations, no syncope. PULMONARY: No shortness of breath, no cough, GASTROINTESTINAL: No diarrhea, no abdominal pain. NEUROLOGICAL: No headaches, no weakness, PHYSICAL EXAMINATION: GENERAL: The patient is alert , ill looking HEENT: Pupils are round and equally reacting to light. EOMI. No scleral icterus. No conjunctival pallor. Normocephalic, atraumatic. No pharyngeal erythema. No thyromegaly. CARDIOVASCULAR: S1 and S2 present. No murmurs, rubs, or gallops. PULMONARY: Coarse breath sounds bilaterally, no crackles, no wheeze ABDOMEN: Soft, nontender, nondistended, normoactive bowel sounds. No palpable organomegaly. 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 NEUROLOGICAL: Gross neurological examination did not reveal any focal deficits. SKIN: No rashes. Assessment and plan Acute hypoxemic hypercapnic respiratory failure Acute CHF Right lower extremity cellulitis Elevated troponin Hyperkalemia Obesity Hypothyroidism Hyperlipidemia Diabetes mellitus Monitor vital signs Monitor CBC Monitor CMP Continue telemetry monitoring Continue oxygen supplementation Aggressive bronchopulmonary hygiene Strict I's and O's, daily weights,IV Lasix 40 mg every 12 Continue IV cefazolin Cardiology following Pulmonology following ID following Labs and medication were reviewed.. Continue same treatment. Continue with symptomatic treatment. Resume home medication. Monitor labs and vitals. DVT and GI prophylaxis. Further recommendations as per clinical course of the patient Dictation was produced using [employer] dictation software. please excuse any grammatical, word or spelling errors. Objective - Vital Signs Vital signs: Vital Signs Temp 98.5 F 04/28/24 12:00 Pulse 95 04/28/24 13:17 Resp 18 04/28/24 13:17 BP 128/75 04/28/24 12:00 Pulse Ox 97 04/28/24 12:00 FiO2 50 04/24/24 15:13 Intake & Output 04/27/24 04/28/24 04/28/24 18:59 06:59 18:59 Intake Total 1190 600 602 Output Total 2800 800 1100 Balance -4120 200 -480 Weight 130.5 kg Intake: IV 20 Invasive Line 1 20 Intake, IV Titration 100 Amount ceFAZolin 3 gm In Sodium 100 Chloride 0.9% 100 ml @ 200 mls/hr IVPB Q8HR [facility] Rx#:[id number] Oral 1170 500 562 Tube Feeding 40 Output: Urine 2800 800 1000 Stool 100 Other: Voiding Method Diaper Diaper Diaper Incontinent Incontinent Incontinent External Catheter External Catheter External Catheter # Voids 1 - Labs CBC & Chem 7: 04/28/24 09:17 04/28/24 09:17 Labs: Abnormal Lab Results - Last 24 Hours (Table) 04/27/24 04/27/24 04/28/24 Range/Units 17:02 20:11 09:17 RBC 3.24 L (3.80-5.40) m/uL Hgb 10.3 L (11.4-16.0) gm/dL MCV 106.3 H (80.0-100.0) fL MCHC 30.0 L (31.0-37.0) g/dL RDW 18.1 H (11.5-15.5) % Macrocytosis Marked A Sodium (137-145) mmol/L Potassium (3.5-5.1) mmol/L Chloride (98-107) mmol/L Carbon Dioxide (22-30) mmol/L BUN (7-17) mg/dL Glucose (74-99) mg/dL POC Glucose (mg/dL) 132 H 138 H (70-110) mg/dL Calcium (8.4-10.2) mg/dL Total Bilirubin (0.2-1.3) mg/dL 04/28/24 04/28/24 Range/Units 09:17 11:34 RBC (3.80-5.40) m/uL Hgb (11.4-16.0) gm/dL MCV (80.0-100.0) fL MCHC (31.0-37.0) g/dL RDW (11.5-15.5) % Macrocytosis Sodium 134 L (137-145) mmol/L Potassium 3.4 L (3.5-5.1) mmol/L Chloride 91 L (98-107) mmol/L Carbon Dioxide 32 H (22-30) mmol/L BUN 6 L (7-17) mg/dL Glucose 133 H (74-99) mg/dL POC Glucose (mg/dL) 232 H (70-110) mg/dL Calcium 8.2 L (8.4-10.2) mg/dL Total Bilirubin <0.1 L (0.2-1.3) mg/dL
--- NOTE | 2024-04-28 16:01 | P.PN ---
Subjective Progress Note Date: 04/28/24 Principal diagnosis: Acute on chronic hypoxic respiratory failure secondary to acute congestive heart failure, ejection fraction is unknown. This is a 48-year-old female patient with a known history of diabetes mellitus, hypothyroidism, peripheral vascular disease, nonhealing wound of the left lower extremity status post left iiawu-zvh-slhb amputation, chronic respiratory [place] on home oxygen, former smoker, bipolar disorder. The patient was admitted on February 11, 2024 to [facility] and was 47 days there most of which was in the intensive care unit. She was then transferred to [facility] in [place] for 2-1/2 weeks. She then was readmitted and intubated for 14 days and had a trachostomy tube placement for 5 days and it was subsequently dislodged and left out according to the patient's sister who is at the bedside. From there she was transferred to [facility]. She was brought here to the emergency room yesterday after being found hypoxic, lethargic and hypotensive. She did have episodes of vomiting as well. Chest x- ray reveals cardiomegaly with mild congestive heart failure and small bilateral effusions. White count 7.6. Hemoglobin 9.5. Platelets 231. INR 1.2. D-dimer 1.19. Sodium 137. Initial potassium 7.0. Currently 5.1. She did receive Lokelma. Bicarb 27. BUN 10. Creatinine 0.83. Glucose 101. AST 40. ALT 40. Troponin 0.177, 0.226, 0.244. proBNP 20,000. Viral screen is negative. She has been initiated on a heparin drip. Lasix 40 mg IV every 12 hours. She is seen today in consultation in the emergency department. She has more awake and alert. She does have some nausea and vomiting. She was initiated on a BiPAP 14/6 and 50% FiO2. Slightly tachycardic. Blood pressure stable. Temperature 99.9 axillary. Procalcitonin pending. She will be initiated on Zosyn for now. The patient is seen today April 25, 2024 in follow-up on the selective care unit. She is currently resting in bed. Awake and alert in no acute distress. She is maintaining O2 saturations in the 90s on 5 L/min per nasal cannula. She did utilize BiPAP 14/6 and 50% FiO2 through the night. She is afebrile. Hemod ynamically stable. CT angiogram revealed no evidence of pulmonary embolism. Limited evaluation of the segmental and subsegmental branches. Cardiomegaly with pulmonary vascular congestion and low lung volumes. Hepatic steatosis. White count 7.0. Hemoglobin 9.1. Platelets 218. Sodium 136. Potassium 4.6. Bicarb 31. BUN 11. Creatinine 0.78. GFR greater than 90. AST 43. ALT 26. Calcitonin 0.61. She remains on a heparin drip for a troponin leak. She remains on cefazolin for cellulitis of the right leg. She remains on Lasix 40 mg IV every 12 hours. Incontinent of urine. No accurate I&O. Patient was seen today on 04/26/2024, x-ray is showing significant improvement in her interstitial pattern suggestive of improving venous congestion. Clinically the patient is feeling better breathing easier off BiPAP, on 5 L nasal cannula with O2 sats of 97%. CBC is normal WBC count is 7 hemoglobin 9.1 basic metabolic profile and renal profile are normal. Procalcitonin level is 0.61, patient remains empirically on antibiotics. Patient was seen today on 04/27/2024, seems to be doing much better from the pulmonary perspective, hardly any pulmonary symptoms no cough no wheezing no s hortness of breath. Patient responded quite well to antibiotics and diuretics. Her chest x-ray drastically improved overnight after diuresis. Patient is on 5 L nasal cannula now O2 sat is 94%, blood pressure is stable,Remains in negative fluid balance since admission. Labs today were reviewed, potassium is a bit low at 3.2 otherwise labs are unremarkable. Seen today on 04/28/2024, patient continues to do well, improving steadily, does not seem to be in any distress, continues on diuretics and antibiotics. Remains on 5 L nasal cannula and her O2 sat is 96%, uses BiPAP at night when she goes to bed. CBC and basic metabolic profile are basically unremarkable today. Objective - Vital Signs Vital signs: Vital Signs Temp 98.1 F 04/28/24 15:54 Pulse 98 04/28/24 15:54 Resp 16 04/28/24 15:54 BP 131/77 04/28/24 15:54 Pulse Ox 96 04/28/24 15:54 FiO2 50 04/24/24 15:13 Intake & Output 04/27/24 04/28/24 04/28/24 18:59 06:59 18:59 Intake Total 1190 600 602 Output Total 2800 800 1600 Balance -1610 -200 -998 Weight 130.5 kg Intake: IV 20 Invasive Line 1 20 Intake, IV Titration 100 Amount ceFAZolin 3 gm In Sodium 100 Chloride 0.9% 100 ml @ 200 mls/hr IVPB Q8HR [facility] Rx#:[id number] Oral 1170 500 562 Tube Feeding 40 Output: Urine 2800 800 1500 Stool 100 Other: Voiding Method Diaper Diaper Diaper Incontinent Incontinent Incontinent External Catheter External Catheter External Catheter # Voids 1 - Exam GENERAL EXAM: Revealed 48-year-old female in no distress, on 5 L nasal cannula, O2 saturation 97% HEAD: Normocephalic. EYES: Normal reaction of pupils, equal size. NOSE: Clear with pink turbinates. THROAT: No erythema or exudates. NECK: No masses, no JVD. CHEST: No chest wall deformity. LUNGS: Minich breath sounds at the bases no crackles rhonchi or wheezes CVS: S1 and S2 normal with no audible murmur, regular rhythm. ABDOMEN: No hepatosplenomegaly, normal bowel sounds, no guarding or rigidity. SKIN: No rashes CENTRAL NERVOUS SYSTEM: No focal deficits, EXTREMITIES: Left iuzpz-chu-zzir amputation. Cellulitis of the right leg. There is 1-2+ peripheral edema. No clubbing, no cyanosis. Peripheral pulses are intact. - Labs CBC & Chem 7: 04/28/24 09:17 04/28/24 09:17 Labs: Abnormal Lab Results - Last 24 Hours (Table) 04/27/24 04/27/24 04/28/24 Range/Units 17:02 20:11 09:17 RBC 3.24 L (3.80-5.40) m/uL Hgb 10.3 L (11.4-16.0) gm/dL MCV 106.3 H (80.0-100.0) fL MCHC 30.0 L (31.0-37.0) g/dL RDW 18.1 H (11.5-15.5) % Macrocytosis Marked A Sodium (137-145) mmol/L Potassium (3.5-5.1) mmol/L Chloride (98-107) mmol/L Carbon Dioxide (22-30) mmol/L BUN (7-17) mg/dL Glucose (74-99) mg/dL POC Glucose (mg/dL) 132 H 138 H (70-110) mg/dL Calcium (8.4-10.2) mg/dL Total Bilirubin (0.2-1.3) mg/dL 04/28/24 04/28/24 Range/Units 09:17 11:34 RBC (3.80-5.40) m/uL Hgb (11.4-16.0) gm/dL MCV (80.0-100.0) fL MCHC (31.0-37.0) g/dL RDW (11.5-15.5) % Macrocytosis Sodium 134 L (137-145) mmol/L Potassium 3.4 L (3.5-5.1) mmol/L Chloride 91 L (98-107) mmol/L Carbon Dioxide 32 H (22-30) mmol/L BUN 6 L (7-17) mg/dL Glucose 133 H (74-99) mg/dL POC Glucose (mg/dL) 232 H (70-110) mg/dL Calcium 8.2 L (8.4-10.2) mg/dL Total Bilirubin <0.1 L (0.2-1.3) mg/dL Assessment and Plan Assessment: Impression: Acute on chronic hypoxemic respiratory failure secondary to suspected diastolic versus systolic congestive heart failure. proBNP 20,000. CT angiogram ruled out pulmonary embolism. There is cardiomegaly with pulmonary vascular congestion and low lung volumes. Underlying pneumonia is not entirely ruled out, I felt this is less likely and the elevated procalcitonin level is because of her cellulitis. Considering the significant improvement in her chest x-ray basically overnight that speaks in favor of pulmonary edema as the patient is getting diuresed and responding well to diuresis. Cellulitis of the right lower extremity currently on cefazolin, procalcitonin 0.61 Troponin leak, currently on a heparin drip Hyperkalemia requiring Lokelma, currently improved at 4.6 Anemia, likely chronic in nature it is chronically ill and she is bed bound, had recent prolonged hospitalizations. Morbid obesity and suspected obesity/hypoventilation syndrome/obstructive sleep apnea Admitted February 11, 2024 with a 47-day length of stay at [facility] at one point intubated for 14 days, status post tracheostomy tube x 5 days which became possibly dislodged and remains out. 2-1/2-week stay at [facility] and subsequently transferred to [facility] History of left [id number] amputation due to infection approximately 5 years ago Bipolar disorder Diabetes mellitus Hypothyroidism Hyperlipidemia Hepatic steatosis Recommendation: Continue diuretics Continue cefazolin for cellulitis Echocardiogram showed good LV function [facility] Continue antibiotics as per infectious disease/cefazolin Consider discharge planning in the next 24 to 48 hours. We will continue to follow Time with Patient: Less than 30
[2024-04-28 16:20] LABS: Glucose,Whole Blood 118 mg/dL (70-110)
[2024-04-28 19:55] LABS: Glucose,Whole Blood 203 mg/dL (70-110)
[2024-04-29 06:09] LABS: Glucose,Whole Blood 91 mg/dL (70-110)
[2024-04-29 11:34] LABS: Glucose,Whole Blood 131 mg/dL (70-110)
--- NOTE | 2024-04-29 14:29 | P.PN ---
Subjective Progress Note Date: 04/29/24 patient is a 48-year-old lady with past medical history significant for respiratory failure, obesity ventilation syndrome, who is a resident of a residential facility brought to the ER because of worsening shortness of breath. Patient apparently is bedbound at baseline. Patient was complaining of shortness of breath. Patient also complaining of cough there was no complaint of chest pain. There is no complaint of orthopnea or PND. There is no complaint of fever or chills. Because of shortness of breath, patient was brought to the ER Initial lab work done in the ER showed WBC 9.7, hemoglobin 10.2, platelet count 273, VBG shows pH 7.2, pCO2 72, bicarb 28, sodium 136, potassium 7, BUN 9, creatinine 0.90, glucose 126, troponin 0.177 Influenza A not detected Influenza B not detected RSV not detected COVID-19 not detected EKG done in the ER showed heart rate of 101, no ST segment elevation or depression seen, no T-wave inversions seen. Chest x-ray done in the ER showed cardiomegaly with mild CHF with small lateral pleural effusions Patient admitted to internal medicine service 04/25. Patient seen and examined. blood work done this morning showed WBC 7, hemonine 0.1, platelet count 218, sodium 130s, potassium 4.6, BUN 11, creatinine 0.78. Patient stated breathing has improved. Currently on 5 L of oxygen. CTA chest done showed pulm vascular congestion and cardiomegaly with no evidence of PE 04/26. Patient seen examined. Breathing is improving. Denies chest pain. De nies lightheaded or dizziness. 04/27. Patient seen and examined. Blood work this morning showed sodium 137 potassium 3.2, BUN 7, creatinine 0.59. Patient states breathing has improved. Patient is diuresing well. Still having right lower extremity pain 04/28. Patient seen and examined. States she feels better. Still having nausea and vomiting. Denies any chest pain 04/29. Patient seen and examined. Sister at the bedside, all questions answered. States breathing is improving. REVIEW OF SYSTEMS: CONSTITUTIONAL: No fever, no malaise,. CARDIOVASCULAR: No chest pain, no palpitations, no syncope. PULMONARY: No shortness of breath, no cough, GASTROINTESTINAL: No diarrhea, no abdominal pain. NEUROLOGICAL: No headaches, no weakness, PHYSICAL EXAMINATION: GENERAL: The patient is alert , ill looking HEENT: Pupils are round and equally reacting to light. EOMI. No scleral icterus. No conjunctival pallor. Normocephalic, atraumatic. No pharyngeal erythema. No thyromegaly. CARDIOVASCULAR: S1 and S2 present. No murmurs, rubs, or gallops. PULMONARY: Coarse breath sounds bilaterally, no crackles, no wheeze ABDOMEN: Soft, nontender, nondistended, normoactive bowel sounds. No palpable organomegaly. 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 NEUROLOGICAL: Gross neurological examination did not reveal any focal deficits. SKIN: No rashes. Assessment and plan Acute hypoxemic hypercapnic respiratory failure Acute CHF Right lower extremity cellulitis Elevated troponin Hyperkalemia Obesity Hypothyroidism Hyperlipidemia Diabetes mellitus Monitor vital signs Monitor CBC Monitor CMP Continue telemetry monitoring Continue oxygen supplementation Aggressive bronchopulmonary hygiene Strict I's and O's, daily weights, oral Bumex 1 mg twice a day Continue IV cefazolin Cardiology following Pulmonology following ID following Labs and medication were reviewed.. Continue same treatment. Continue with symptomatic treatment. Resume home medication. Monitor labs and vitals. DVT and GI prophylaxis. Further recommendations as per clinical course of the patient Dictation was produced using [employer] dictation software. please excuse any grammatical, word or spelling errors. Objective - Vital Signs Vital signs: Vital Signs Temp 97.5 F L 04/29/24 11:11 Pulse 97 04/29/24 13:19 Resp 16 04/29/24 13:19 BP 131/81 04/29/24 11:11 Pulse Ox 98 04/29/24 11:11 FiO2 50 04/29/24 04:35 Intake & Output 04/28/24 04/29/24 04/29/24 18:59 06:59 18:59 Intake Total 844 760 Output Total 2300 600 750 Balance -1456 -600 10 Weight 103.5 kg Intake: Oral 784 720 Tube Feeding 60 40 Output: Urine 2200 400 550 Stool 100 200 200 Other: Voiding Method Diaper Diaper Diaper Incontinent Incontinent Incontinent External Catheter External Catheter External Catheter - Labs CBC & Chem 7: 04/28/24 09:17 04/28/24 09:17 Labs: Abnormal Lab Results - Last 24 Hours (Table) 04/28/24 04/28/24 04/29/24 Range/Units 16:19 19:52 11:33 POC Glucose (mg/dL) 118 H 203 H 131 H (70-110) mg/dL Microbiology - Last 24 Hours (Table) 04/23/24 14:26 Blood Culture - Final Blood
--- NOTE | 2024-04-29 14:32 | P.PN ---
Subjective Progress Note Date: 04/28/24 Principal diagnosis: Reason for follow-up is right leg cellulitis Patient is a 48-year-old female with a past medical history of again for diabetes mellitus peripheral vascular disease and did have left qovri-zdc-pglt amputation chronic respiratory failure on home O2 patient has been brought into the hospital for evaluation of increasing shortness of breath patient also having increasing swelling to the right lower extremity with some redness concerning for cellulitis prompting this consultation. On today's evaluation that is 04/28/2024, patient did not have any fever and denies any chills, patient is breathing comfortably on 4 L nasal oxygen, patient with no chest pain or any worsening cough patient did not have any abdominal pain nausea vomiting or any loose stools, pain to the right leg decreasing intensity. Patient white count of 8.3, creatinine 0.57 Objective - Vital Signs Vital signs: Vital Signs Temp 98.5 F 04/28/24 12:00 Pulse 95 04/28/24 13:17 Resp 18 04/28/24 13:17 BP 128/75 04/28/24 12:00 Pulse Ox 97 04/28/24 12:00 FiO2 50 04/24/24 15:13 Intake & Output 04/27/24 04/28/24 04/28/24 18:59 06:59 18:59 Intake Total 1190 600 602 Output Total 2800 800 1100 Balance -1610 -200 -498 Weight 130.5 kg Intake: IV 20 Invasive Line 1 20 Intake, IV Titration 100 Amount ceFAZolin 3 gm In Sodium 100 Chloride 0.9% 100 ml @ 200 mls/hr IVPB Q8HR [facility] Rx#:[id number] Oral 1170 500 562 Tube Feeding 40 Output: Urine 2800 800 1000 Stool 100 Other: Voiding Method Diaper Diaper Diaper Incontinent Incontinent Incontinent External Catheter External Catheter External Catheter # Voids 1 - Exam GENERAL DESCRIPTION: Middle-age female lying in bed in no distress RESPIRATORY SYSTEM: Unlabored breathing , decreased breath sounds at bases HEART: S1 S2 regular rate and rhythm , ABDOMEN: Soft , no tenderness EXTREMITIES: Right lower extremity swelling minimal redness no drainage - Labs CBC & Chem 7: 04/28/24 09:17 04/28/24 09:17 Labs: Abnormal Lab Results - Last 24 Hours (Table) 04/27/24 04/27/24 04/28/24 Range/Units 17:02 20:11 09:17 RBC 3.24 L (3.80-5.40) m/uL Hgb 10.3 L (11.4-16.0) gm/dL MCV 106.3 H (80.0-100.0) fL MCHC 30.0 L (31.0-37.0) g/dL RDW 18.1 H (11.5-15.5) % Macrocytosis Marked A Sodium (137-145) mmol/L Potassium (3.5-5.1) mmol/L Chloride (98-107) mmol/L Carbon Dioxide (22-30) mmol/L BUN (7-17) mg/dL Glucose (74-99) mg/dL POC Glucose (mg/dL) 132 H 138 H (70-110) mg/dL Calcium (8.4-10.2) mg/dL Total Bilirubin (0.2-1.3) mg/dL 04/28/24 04/28/24 Range/Units 09:17 11:34 RBC (3.80-5.40) m/uL Hgb (11.4-16.0) gm/dL MCV (80.0-100.0) fL MCHC (31.0-37.0) g/dL RDW (11.5-15.5) % Macrocytosis Sodium 134 L (137-145) mmol/L Potassium 3.4 L (3.5-5.1) mmol/L Chloride 91 L (98-107) mmol/L Carbon Dioxide 32 H (22-30) mmol/L BUN 6 L (7-17) mg/dL Glucose 133 H (74-99) mg/dL POC Glucose (mg/dL) 232 H (70-110) mg/dL Calcium 8.2 L (8.4-10.2) mg/dL Total Bilirubin <0.1 L (0.2-1.3) mg/dL Assessment and Plan (1) Cellulitis of right leg Current Visit: Yes Status: Acute Code(s): L03.115 - CELLULITIS OF RIGHT L OWER LIMB SNOMED Code(s): 23735017218670263 Plan: 1patient presented hospital with generalized weakness increasing shortness of breath patient also have diffuse swelling to the right lower extremity and erythema concerning for cellulitis likely from gram-positive skin vahid 2-patient did have resolution of fever, white count is normal 3patient right lower extremity redness and decreased intensity currently on cefazolin while inpatient and transition to oral antibiotics on discharge Dictation was produced using [employer] dictation software. please excuse any grammatical, word or spelling errors. Time with Patient: Less than 30
--- NOTE | 2024-04-29 14:33 | P.PN ---
Subjective Progress Note Date: 04/29/24 Principal diagnosis: Reason for follow-up is right leg cellulitis Patient is a 48-year-old female with a past medical history of again for diabetes mellitus peripheral vascular disease and did have left lwofr-oyc-spdo amputation chronic respiratory failure on home O2 patient has been brought into the hospital for evaluation of increasing shortness of breath patient also having increasing swelling to the right lower extremity with some redness concerning for cellulitis prompting this consultation. On today's evaluation that is 04/29/2024, Patient is afebrile patient is currently on 5 L of oxygen and denies having any shortness of breath, the patient denies any chest pain did have occasional dry cough, the patient denies any nausea vomiting did not have any abdominal pain and no diarrhea, pain to the right knee has decreased in intensity. No new labs obtained today Objective - Vital Signs Vital signs: Vital Signs Temp 97.5 F L 04/29/24 11:11 Pulse 97 04/29/24 13:19 Resp 16 04/29/24 13:19 BP 131/81 04/29/24 11:11 Pulse Ox 98 04/29/24 11:11 FiO2 50 04/29/24 04:35 Intake & Output 04/28/24 04/29/24 04/29/24 18:59 06:59 18:59 Intake Total 844 760 Output Total 2300 600 750 Balance -1456 -600 10 Weight 103.5 kg Intake: Oral 784 720 Tube Feeding 60 40 Output: Urine 2200 400 550 Stool 100 200 200 Other: Voiding Method Diaper Diaper Diaper Incontinent Incontinent Incontinent External Catheter External Catheter External Catheter - Exam GENERAL DESCRIPTION: Middle-age female lying in bed in no distress RESPIRATORY SYSTEM: Unlabored breathing , decreased breath sounds at bases HEART: S1 S2 regular rate and rhythm , ABDOMEN: Soft , no tenderness EXTREMITIES: Right lower extremity swelling minimal redness no drainage - Labs CBC & Chem 7: 04/28/24 09:17 04/28/24 09:17 Labs: Abnormal Lab Results - Last 24 Hours (Table) 04/28/24 04/28/24 04/29/24 Range/Units 16:19 19:52 11:33 POC Glucose (mg/dL) 118 H 203 H 131 H (70-110) mg/dL Microbiology - Last 24 Hours (Table) 04/23/24 14:26 Blood Culture - Final Blood Assessment and Plan (1) Cellulitis of right leg Current Visit: Yes Status: Acute Code(s): L03.115 - CELLULITIS OF RIGHT LO WER LIMB SNOMED Code(s): 90926979976728443 Plan: 1patient presented hospital with generalized weakness increasing shortness of breath patient also have diffuse swelling to the right lower extremity and erythema concerning for cellulitis likely from gram-positive skin vahid 2-patient did have resolution of fever, white count is normal and right lower extremity swelling redness has decreased intensity 3patient will be treated with cefazolin while inpatient and transition to oral Keflex on discharge Dictation was produced using [employer] dictation software. please excuse any grammatical, word or spelling errors. Time with Patient: Less than 30
--- NOTE | 2024-04-29 14:56 | P.PN ---
Subjective Progress Note Date: 04/29/24 Principal diagnosis: Acute on chronic hypoxic respiratory failure secondary to acute congestive heart failure, preserved ejection fraction This is a 48-year-old female patient with a known history of diabetes mellitus, hypothyroidism, peripheral vascular disease, nonhealing wound of the left lower extremity status post left ijjsd-xgh-qvhk amputation, chronic respiratory failu re on home oxygen, former smoker, bipolar disorder. The patient was admitted on February 11, 2024 to [facility] and was 47 days there most of which was in the intensive care unit. She was then transferred to [facility] in [place] for 2-1/2 weeks. She then was readmitted and intubated for 14 days and had a trachostomy tube placement for 5 days and it was subsequently dislodged and left out according to the patient's sister who is at the bedside. From there she was transferred to [facility]. She was brought here to the emergency room yesterday after being found hypoxic, lethargic and hypotensive. She did have episodes of vomiting as well. Chest x- ray reveals cardiomegaly with mild congestive heart failure and small bilateral effusions. White count 7.6. Hemoglobin 9.5. Platelets 231. INR 1.2. D-dimer 1.19. Sodium 137. Initial potassium 7.0. Currently 5.1. She did receive Lokelma. Bicarb 27. BUN 10. Creatinine 0.83. Glucose 101. AST 40. ALT 40. Troponin 0.177, 0.226, 0.244. proBNP 20,000. Viral screen is negative. She has been initiated on a heparin drip. Lasix 40 mg IV every 12 hours. She is seen today in consultation in the emergency department. She has more awake and alert. She does have some nausea and vomiting. She was initiated on a BiPAP 14/6 and 50% FiO2. Slightly tachycardic. Blood pressure stable. Temperature 99.9 axillary. Procalcitonin pending. She will be initiated on Zosyn for now. The patient is seen today April 25, 2024 in follow-up on the selective care unit. She is currently resting in bed. Awake and alert in no acute distress. She is maintaining O2 saturations in the 90s on 5 L/min per nasal cannula. She did utilize BiPAP 14/6 and 50% FiO2 through the night. She is afebrile. Hemodyn amically stable. CT angiogram revealed no evidence of pulmonary embolism. Limited evaluation of the segmental and subsegmental branches. Cardiomegaly with pulmonary vascular congestion and low lung volumes. Hepatic steatosis. White count 7.0. Hemoglobin 9.1. Platelets 218. Sodium 136. Potassium 4.6. Bicarb 31. BUN 11. Creatinine 0.78. GFR greater than 90. AST 43. ALT 26. Calcitonin 0.61. She remains on a heparin drip for a troponin leak. She remains on cefazolin for cellulitis of the right leg. She remains on Lasix 40 mg IV every 12 hours. Incontinent of urine. No accurate I&O. Patient was seen today on 04/26/2024, x-ray is showing significant improvement in her interstitial pattern suggestive of improving venous congestion. Clinically the patient is feeling better breathing easier off BiPAP, on 5 L nasal cannula with O2 sats of 97%. CBC is normal WBC count is 7 hemoglobin 9.1 basic metabolic profile and renal profile are normal. Procalcitonin level is 0.61, patient remains empirically on antibiotics. Patient was seen today on 04/27/2024, seems to be doing much better from the pulmonary perspective, hardly any pulmonary symptoms no cough no wheezing no monserrat rtness of breath. Patient responded quite well to antibiotics and diuretics. Her chest x-ray drastically improved overnight after diuresis. Patient is on 5 L nasal cannula now O2 sat is 94%, blood pressure is stable,Remains in negative fluid balance since admission. Labs today were reviewed, potassium is a bit low at 3.2 otherwise labs are unremarkable. Seen today on 04/28/2024, patient continues to do well, improving steadily, does not seem to be in any distress, continues on diuretics and antibiotics. Remains on 5 L nasal cannula and her O2 sat is 96%, uses BiPAP at night when she goes to bed. CBC and basic metabolic profile are basically unremarkable today. Patient was seen today on 04/29/2024, patient is doing well, relatively asymptomatic, still receiving diuretics, antibiotics for her cellulitis, and clinically from the pulmonary perspective she is doing much better, breathing a lot easier. She is on 5 L nasal cannula, O2 sats is 98%, patient uses BiPAP at night. No labs done today except for blood sugar of 131 Objective - Vital Signs Vital signs: Vital Signs Temp 97.5 F L 04/29/24 11:11 Pulse 97 04/29/24 13:19 Resp 16 04/29/24 13:19 BP 131/81 04/29/24 11:11 Pulse Ox 98 04/29/24 11:11 FiO2 50 04/29/24 04:35 Intake & Output 04/28/24 04/29/24 04/29/24 18:59 06:59 18:59 Intake Total 844 880 Output Total 2300 600 1850 Balance -2226 -600 -970 Weight 103.5 kg Intake: Oral 784 840 Tube Feeding 60 40 Output: Urine 2200 400 1650 Stool 100 200 200 Other: Voiding Method Diaper Diaper Diaper Incontinent Incontinent Incontinent External Catheter External Catheter External Catheter - Exam GENERAL EXAM: Revealed 48-year-old female in no distress, on 5 L nasal cannula HEAD: Normocephalic. EYES: Normal reaction of pupils, equal size. NOSE: Clear with pink turbinates. THROAT: No erythema or exudates. NECK: No masses, no JVD. CHEST: No chest wall deformity. LUNGS: Good breath sound bilaterally no crackles rhonchi or wheezes CVS: S1 and S2 normal with no audible murmur, regular rhythm. ABDOMEN: No hepatosplenomegaly, normal bowel sounds, no guarding or rigidity. SKIN: No rashes CENTRAL NERVOUS SYSTEM: No focal deficits, EXTREMITIES: Left cybsp-ghg-ccyl amputation. Cellulitis of the right leg. There is trace of peripheral edema. No clubbing, no cyanosis. Peripheral pulses are intact. - Labs CBC & Chem 7: 04/28/24 09:17 04/28/24 09:17 Labs: Abnormal Lab Results - Last 24 Hours (Table) 04/28/24 04/28/24 04/29/24 Range/Units 16:19 19:52 11:33 POC Glucose (mg/dL) 118 H 203 H 131 H (70-110) mg/dL Microbiology - Last 24 Hours (Table) 04/23/24 14:26 Blood Culture - Final Blood Assessment and Plan Assessment: Impression: Acute on chronic hypoxemic respiratory failure secondary to suspected diastolic versus systolic congestive heart failure. proBNP 20,000. CT angiogram ruled out pulmonary embolism. There is cardiomegaly with pulmonary vascular congestion and low lung volumes. Underlying pneumonia is not entirely ruled out, I felt this is less likely and the elevated procalcitonin level is because of her cellulitis. Considering the significant improvement in her chest x-ray basically overnight that speaks in favor of pulmonary edema as the patient is getting diuresed and responding well to diuresis. Cellulitis of the right lower extremity currently on cefazolin, procalcitonin 0.61 Troponin leak, currently on a heparin drip Hyperkalemia requiring Lokelma, currently improved at 4.6 Anemia, likely chronic in nature it is chronically ill and she is bed bound, had recent prolonged hospitalizations. Morbid obesity and suspected obesity/hypoventilation syndrome/obstructive sleep apnea Admitted February 11, 2024 with a 47-day length of stay at [facility] at one point intubated for 14 days, status post tracheostomy tube x 5 days which became possibly dislodged and remains out. 2-1/2-week stay at [facility] and subsequently transferred to [facility] History of left zyzzb-ksb-dhir amputation due to infection approximately 5 years ago Bipolar disorder Diabetes mellitus Hypothyroidism Hyperlipidemia Hepatic steatosis Recommendation: Continue diuretics, patient remains on Bumex 1 mg p.o. twice daily Continue cefazolin for cellulitis Echocardiogram showed good LV function, hence her failure seems to be mostly a diastolic type of congestive heart failure Continue [facility] Consider discharge planning to [facility]. Will check repeat chest x-ray in a.m. We will continue to follow Time with Patient: Less than 30
[2024-04-29 16:33] LABS: Glucose,Whole Blood 104 mg/dL (70-110)
[2024-04-29 20:15] LABS: Glucose,Whole Blood 147 mg/dL (70-110)
[2024-04-30 06:16] LABS: Glucose,Whole Blood 92 mg/dL (70-110)
--- NOTE | 2024-04-30 08:42 | XR ---
EXAMINATION TYPE: XR chest 1V portable DATE OF EXAM: 04/30/2024 7:24 AM COMPARISON: 04/26/2024 CLINICAL INDICATION: Female, 48 years old with history of CHF, , FINDINGS: The heart is mildly enlarged. Mild interstitial density. Mild patchy retrocardiac and medial right ba silar opacity. Changes may be slightly increased. No pleural effusion. IMPRESSION: 1. Mild cardiomegaly and mild interstitial prominence, possible mild pulmonary vascular congestion. 2. Some mild patchy medial bibasilar densities have increased. [facility], , 04/30/2024 8:40 AM
[2024-04-30 11:08] VITALS: RESP 20
[2024-04-30 11:24] LABS: Glucose,Whole Blood 141 mg/dL (70-110)
[2024-04-30 11:33] VITALS: BMI 47.9
[2024-04-30 12:10] VITALS: TEMP 98
--- NOTE | 2024-04-30 13:24 | P.DS ---
Providers Date of admission: 04/23/24 15:30 Expected date of discharge: 04/30/24 Attending physician: Ervin Mendez MD Consults: 04/24/24 09:08 Consult Physician Routine Consulting Provider: Judy Arias Consult Reason/Comments: Acute respiratory failure Do you want consulting provider notified?: Yes 04/24/24 12:06 Consult Physician Routine Consulting Provider: John Villagran Consult Reason/Comments: Right lower extremity cellulitis Do you want consulting provider notified?: Yes Primary care physician: Luz Howard DO Hospital Course: Discharge diagnoses; Acute hypoxemic hypercapnic respiratory failure Acute on chronic diastolic CHF Right lower extremity cellulitis Elevated troponin Hyperkalemia Obesity Hypothyroidism Hyperlipidemia Diabetes mellitus Hospital course; patient is a 48-year-old lady with past medical history significant for respiratory failure, obesity ventilation syndrome, who is a resident of a custodial facility brought to the ER because of worsening shortness of breath. Patient apparently is bedbound at baseline. Patient was complaining of shortness of breath. Patient also complaining of cough there was no complaint of chest pain. There is no complaint of orthopnea or PND. There is no complaint of fever or chills. Because of shortness of breath, patient was brought to the ER Initial lab work done in the ER showed WBC 9.7, hemoglobin 10.2, platelet count 273, VBG shows pH 7.2, pCO2 72, bicarb 28, sodium 136, potassium 7, BUN 9, creatinine 0.90, glucose 126, troponin 0.177 Influenza A not detected Influenza B not detected RSV not detected COVID-19 not detected EKG done in the ER showed heart rate of 101, no ST segment elevation or depression seen, no T-wave inversions seen. Chest x-ray done in the ER showed cardiomegaly with mild CHF with small lateral pleural effusions Patient admitted to internal medicine service 04/25. Patient seen and examined. blood work done this morning showed WBC 7, hemonine 0.1, platelet count 218, sodium 130s, potassium 4.6, BUN 11, creatinine 0.78. Patient stated breathing has improved. Currently on 5 L of oxygen. CTA chest done showed pulm vascular congestion and cardiomegaly with no evidence of PE 04/26. Patient seen examined. Breathing is improving. Denies chest pain. Denies lightheaded or dizziness. 04/27. Patient seen and examined. Blood work this morning showed sodium 137 potassium 3.2, BUN 7, creatinine 0.59. Patient states breathing has improved. Patient is diuresing well. Still having right lower extremity pain 04/28. Patient seen and examined. States she feels better. Still having nausea and vomiting. Denies any chest pain 04/29. Patient seen and examined. Sister at the bedside, all questions answered. States breathing is improving. 04/30. Patient seen and examined. Patient is doing much better. ID recommended oral Keflex for 5 days. Pulmonology cleared the patient for discharge PHYSICAL EXAMINATION: GENERAL: The patient is alert , ill looking HEENT: Pupils are round and equally reacting to light. EOMI. No scleral icterus. No conjunctival pallor. Normocephalic, atraumatic. No pharyngeal erythema. No thyromegaly. CARDIOVASCULAR: S1 and S2 present. No murmurs, rubs, or gallops. PULMONARY: Coarse breath sounds bilaterally, no crackles, no wheeze ABDOMEN: Soft, nontender, nondistended, normoactive bowel sounds. No palpable organomegaly. 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 NEUROLOGICAL: Gross neurological examination did not reveal any focal deficits. SKIN: No rashes. Dictation was produced using [employer] dictation software. please excuse any grammatical, word or spelling errors. Patient Condition at Discharge: Good Plan - Discharge Summary Discharge Rx Participant: No New Discharge Prescriptions: New Spironolactone [Aldactone] 25 mg PO DAILY #30 tab Cephalexin [Keflex] 500 mg PO Q8HR 5 Days #15 cap Bumetanide [BUMEX] 1 mg PO BID@0900,1600 15 Days #30 tab Continue hydrOXYzine pamoate [Vistaril] 25 mg PO TID PRN PRN Reason: Anxiety lamoTRIgine [LaMICtal] 50 mg PO BID Potassium Chloride ER [K-Dur 20] 20 meq PO HS PARoxetine [Paxil] 20 mg PO DAILY OLANZapine ODT [ZyPREXA Zydis] 5 mg PO HS Levothyroxine Sodium [Synthroid] 137 mcg PO DAILY@0500 Atorvastatin [Lipitor] 20 mg PO HS@2000 ALPRAZolam [Xanax] 0.25 mg PO BID PRN 3 Days #6 tab PRN Reason: Anxiety Ondansetron [Zofran] 4 mg PO Q6H PRN PRN Reason: Nausea And Vomiting Naloxone HCl 0.4 mg IM ONCE PRN PRN Reason: Opioid Overdose Simethicone [Simethicone Chew] 80 mg PO ACHS tiZANidine [Zanaflex] 4 mg PO TID@0700,1300,1900 Antifungal Powder(Unknown) 1 applic TOPICAL BID Omeprazole [PriLOSEC] 20 mg PO HS@1999 Melatonin 3 mg PO HS@1999 Insulin Glargine [Lantus Vial] 10 unit SQ HS Aspirin 81 mg PO HS Acetaminophen [Tylenol 8 Hour] 650 mg PO Q6H PRN PRN Reason: Pain oxyCODONE HCL [OxyIR] 5 mg PO Q6H PRN 3 Days #9 tab PRN Reason: Pain Discontinued Sulfamethox-Tmp 800-160Mg [Bactrim DS 800-160 mg] 1 tab PO BID@0700,1900 traMADol HCL 50 mg PO Q6H PRN PRN Reason: Pain Naloxone HCl [Narcan] 4 mg NASAL ONCE PRN PRN Reason: Opiod Overdose Discharge Medication List Acetaminophen [Tylenol 8 Hour] 650 mg PO Q6H PRN 04/23/24 [History] Antifungal Powder(Unknown) 1 applic TOPICAL BID 04/23/24 [History] Aspirin 81 mg PO HS 04/23/24 [History] Atorvastatin [Lipitor] 20 mg PO HS@199904/23/24 [History] Insulin Glargine [Lantus Vial] 10 unit SQ HS 04/23/24 [History] Levothyroxine Sodium [Synthroid] 137 mcg PO DAILY@0500 04/23/24 [History] Melatonin 3 mg PO HS@199904/23/24 [History] Naloxone HCl 0.4 mg IM ONCE PRN 04/23/24 [History] OLANZapine ODT [ZyPREXA Zydis] 5 mg PO HS 04/23/24 [History] Omeprazole [PriLOSEC] 20 mg PO HS@199904/23/24 [History] Ondansetron [Zofran] 4 mg PO Q6H PRN 04/23/24 [History] PARoxetine [Paxil] 20 mg PO DAILY 04/23/24 [History] Potassium Chloride ER [K-Dur 20] 20 meq PO HS 04/23/24 [History] Simethicone [Simethicone Chew] 80 mg PO ACHS 04/23/24 [History] hydrOXYzine pamoate [Vistaril] 25 mg PO TID PRN 04/23/24 [History] lamoTRIgine [LaMICtal] 50 mg PO BID 04/23/24 [History] tiZANidine [Zanaflex] 4 mg PO TID@0700,1300,1900 04/23/24 [History] ALPRAZolam [Xanax] 0.25 mg PO BID PRN 3 Days #6 tab 04/30/24 [Rx] Bumetanide [BUMEX] 1 mg PO BID@0900,1600 15 Days #30 tab 04/30/24 [Rx] Cephalexin [Keflex] 500 mg PO Q8HR 5 Days #15 cap 04/30/24 [Rx] Spironolactone [Aldactone] 25 mg PO DAILY #30 tab 04/30/24 [Rx] oxyCODONE HCL [OxyIR] 5 mg PO Q6H PRN 3 Days #9 tab 04/30/24 [Rx] Follow up Appointment(s)/Referral(s): Luz Howard DO [Primary Care Provider] - 1-2 days Major Arizmendi MD [STAFF PHYSICIAN] - 1 Week Judy Arias MD [STAFF PHYSICIAN] - 1 Week Activity/Diet/Wound Care/Special Instructions: Residential Palliative Care will come see you at [facility]. Discharge Disposition: TRANSFER TO SNF/ECF
--- NOTE | 2024-04-30 16:06 | P.PN ---
Subjective Progress Note Date: 04/30/24 This is a 48-year-old female patient with a known history of diabetes mellitus, hypothyroidism, peripheral vascular disease, nonhealing wound of the left lower extremity status post left [id number] amputation, chronic respiratory failure on home oxygen, former smoker, bipolar disorder. The patient was admitted on February 11, 2024 to [facility] and was 47 days there most of which was in the intensive care unit. She was then transferred to [facility] in [place] for 2-1/2 weeks. She then was readmitted and intubated for 14 days and had a trachostomy tube placement for 5 days and it was subsequently dislodged and left out according to the patient's sister who is at the bedside. From there she was transferred to [facility]. She was brought here to the emergency room yesterday after being found hypoxic, lethargic and hypotensive. She did have episodes of vomiting as well. Chest x- ray reveals cardiomegaly with mild congestive heart failure and small bilateral effusions. White count 7.6. Hemoglobin 9.5. Platelets 231. INR 1.2. D-dimer 1.19. Sodium 137. Initial potassium 7.0. Currently 5.1. She did receive Lokelma. Bicarb 27. BUN 10. Creatinine 0.83. Glucose 101. AST 40. ALT 40. Troponin 0.177, 0.226, 0.244. proBNP 20,000. Viral screen is negative. She has been initiated on a heparin drip. Lasix 40 mg IV every 12 hours. She is seen today in consultation in the emergency department. She has more awake and alert. She does have some nausea and vomiting. She was initiated on a BiPAP 14/6 and 50% FiO2. Slightly tachycardic. Blood pressure stable. Temperature 99.9 axillary. Procalcitonin pending. She will be initiated on Zosyn for now. The patient is seen today April 25, 2024 in follow-up on the selective care unit. She is currently resting in bed. Awake and alert in no acute distress. She is maintaining O2 saturations in the 90s on 5 L/min per nasal cannula. She did utilize BiPAP 14/6 and 50% FiO2 through the night. She is afebrile. Hemodynamically stable. CT angiogram revealed no evidence of pulmonary em bolism. Limited evaluation of the segmental and subsegmental branches. Cardiomegaly with pulmonary vascular congestion and low lung volumes. Hepatic steatosis. White count 7.0. Hemoglobin 9.1. Platelets 218. Sodium 136. Potassium 4.6. Bicarb 31. BUN 11. Creatinine 0.78. GFR greater than 90. AST 43. ALT 26. Calcitonin 0.61. She remains on a heparin drip for a troponin leak. She remains on cefazolin for cellulitis of the right leg. She remains on Lasix 40 mg IV every 12 hours. Incontinent of urine. No accurate I&O. Patient was seen today on 04/26/2024, x-ray is showing significant improvement in her interstitial pattern suggestive of improving venous congestion. Clinically the patient is feeling better breathing easier off BiPAP, on 5 L nasal cannula with O2 sats of 97%. CBC is normal WBC count is 7 hemoglobin 9.1 basic metabolic profile and renal profile are normal. Procalcitonin level is 0.61, patient remains empirically on antibiotics. Patient was seen today on 04/27/2024, seems to be doing much better from the pulmonary perspective, hardly any pulmonary symptoms no cough no wheezing no shortness of breath. Patient responded quite well to antibiotics and diuretics. Her chest x-ray drastically improved overnight after diuresis. Patient is on 5 L nasal cannula now O2 sat is 94%, blood pressure is stable,Remains in negative fluid balance since admission. Labs today were reviewed, potassium is a bit low at 3.2 otherwise labs are unremarkable. Seen today on 04/28/2024, patient continues to do well, improving steadily, does not seem to be in any distress, continues on diuretics and antibiotics. Remains on 5 L nasal cannula and her O2 sat is 96%, uses BiPAP at night when she goes to bed. CBC and basic metabolic profile are basically unremarkable today. Patient was seen today on 04/29/2024, patient is doing well, relatively asymptomatic, still receiving diuretics, antibiotics for her cellulitis, and clinically from the pulmonary perspective she is doing much better, breathing a lot easier. She is on 5 L nasal cannula, O2 sats is 98%, patient uses BiPAP at night. No labs done today except for blood sugar of 131 The patient is seen today April 30, 2024 in follow-up on the selective care unit. She is awake and alert in no acute distress. Resting comfortably in bed. Denies any shortness of breath, cough or congestion. She is maintaining good O2 saturations in the 90s on 4 L/min per nasal cannula. She has been afebrile. Hemodynamically stable. She has been utilizing BiPAP 14/6 and 50% FiO2 during the evenings. Glucose 141. She is continued on cefazolin for her lower extremity cellulitis on the right. Heparin for DVT prophylaxis. Objective - Vital Signs Vital signs: Vital Signs Temp 98 F 04/30/24 12:00 Pulse 104 H 04/30/24 12:00 Resp 20 04/30/24 12:00 BP 110/74 04/30/24 12:00 Pulse Ox 95 04/30/24 12:00 FiO2 50 04/29/24 04:35 Intake & Output 04/29/24 04/30/24 04/30/24 18:59 06:59 18:59 Intake Total 1120 0 458 Output Total 2650 1940 1600 Balance -1530 -1940 -1142 Weight 139 kg 139 kg Intake: Oral 1080 458 Tube Feeding 40 0 0 Output: Urine 2450 1940 1600 Stool 200 Other: Voiding Method Diaper Diaper Diaper Incontinent Incontinent Incontinent External Catheter External Catheter External Catheter # Bowel Movements 1 300 - Exam GENERAL EXAM: Alert, morbidly obese 48-year-old female, on 4 liters per nasal cannula alternating with BiPAP 14/6 and 50% FiO2, comfortable in no apparent distress. HEAD: Normocephalic. EYES: Normal reaction of pupils, equal size. NOSE: Clear with pink turbinates. THROAT: No erythema or exudates. NECK: No masses, no JVD. CHEST: No chest wall deformity. LUNGS: Equal air entry with few scattered rhonchi bilaterally. CVS: S1 and S2 normal with no audible murmur, regular rhythm. ABDOMEN: No hepatosplenomegaly, normal bowel sounds, no guarding or rigidity. SPINE: No scoliosis or deformity SKIN: No rashes CENTRAL NERVOUS SYSTEM: No focal deficits, tone is normal in all 4 extremities. EXTREMITIES: Left [id number] amputation. Cellulitis of the right leg. There is 1-2+ peripheral edema. No clubbing, no cyanosis. Peripheral pulses are intact. - Labs CBC & Chem 7: 04/28/24 09:17 04/28/24 09:17 Labs: Abnormal Lab Results - Last 24 Hours (Table) 04/29/24 04/30/24 Range/Units 20:13 11:20 POC Glucose (mg/dL) 147 H 141 H (70-110) mg/dL Assessment and Plan Assessment: Acute on chronic hypoxemic respiratory failure secondary to suspected diastolic versus systolic congestive heart failure. proBNP 20,000. CT angiogram ruled out pulmonary embolism. There is cardiomegaly with pulmonary vascular congestion and low lung volumes. Cellulitis of the right lower extremity currently on cefazolin, procalcitonin 0.61 Troponin leak, currently on a heparin drip Hyperkalemia requiring Lokelma, currently improved at 4.6 Anemia, current hemoglobin 9.1 Morbid obesity and suspected obesity/hypoventilation syndrome/obstructive sleep apnea Admitted February 11, 2024 with a 47-day length of stay at [facility] at one point intubated for 14 days, status post tracheostomy tube x 5 days which became possibly dislodged and remains out. 2-1/2-week stay at [facility] and subsequently transferred to [facility] History of left wjlob-wjo-atow amputation due to infection approximately 5 years ago Bipolar disorder Diabetes mellitus Hypothyroidism Hyperlipidemia Hepatic steatosis Plan: The patient was seen and evaluated Labs and medications reviewed Currently on cefazolin Currently on 4 L nasal cannula BiPAP 14/6 and 50% FiO2 during the evenings and during the day as needed Titrate the FiO2 as tolerated Continue DuoNeb inhalations Plan is to return to [facility] I have personally seen and examined the patient, performed the documentation and the assessment and plan as written. Number of minutes spent on the visit: 10 Dictation was produced using [employer] dictation software. Please excuse any grammatical, word or spelling errors.
[2024-04-30 16:20] LABS: Glucose,Whole Blood 110 mg/dL (70-110)
[2024-04-30 16:28] VITALS: BP 121/82; PULSE 102
--- NOTE | 2024-05-02 14:54 | P.PN ---
Subjective Progress Note Date: 04/30/24 Principal diagnosis: Reason for follow-up is right leg cellulitis Patient is a 48-year-old female with a past medical history of again for diabetes mellitus peripheral vascular disease and did have left [id number]-ecv-[id number] amputation chronic respiratory failure on home O2 patient has been brought into the hospital for evaluation of increasing shortness of breath patient also having increasing swelling to the right lower extremity with some redness concerning for cellulitis prompting this consultation. On today's evaluation that is 04/30/2024, patient has been afebrile, patient is breathing comfortably and is currently on 4 L current oxygen, patient denies having any significant cough no chest pain, patient denies nausea vomiting or diarrhea and no abdominal pain, pain to the right lower extremity increased. No new lab has been obtained today Objective - Vital Signs Vital signs: Vital Signs Temp 98 F 04/30/24 12:00 Pulse 104 H 04/30/24 12:00 Resp 20 04/30/24 12:00 BP 110/74 04/30/24 12:00 Pulse Ox 95 04/30/24 12:00 FiO2 50 04/29/24 04:35 Intake & Output 04/29/24 04/30/24 04/30/24 18:59 06:59 18:59 Intake Total 1120 0 236 Output Total 2650 1940 800 Balance -1530 -1940 -564 Weight 139 kg 139 kg Intake: Oral 1080 236 Tube Feeding 40 0 0 Output: Urine 2450 1940 800 Stool 200 Other: Voiding Method Diaper Diaper Diaper Incontinent Incontinent Incontinent External Catheter External Catheter External Catheter # Bowel Movements 1 300 - Exam GENERAL DESCRIPTION: Middle-age female lying in bed in no distress RESPIRATORY SYSTEM: Unlabored breathing , decreased breath sounds at bases HEART: S1 S2 regular rate and rhythm , ABDOMEN: Soft , no tenderness EXTREMITIES: Right lower extremity swelling minimal redness no drainage - Labs CBC & Chem 7: 04/28/24 09:17 04/28/24 09:17 Labs: Abnormal Lab Results - Last 24 Hours (Table) 04/29/24 04/30/24 Range/Units 20:13 11:20 POC Glucose (mg/dL) 147 H 141 H (70-110) mg/dL Assessment and Plan (1) Cellulitis of right leg Status: Acute Code(s): L03.115 - CELLULITIS OF RIGHT LOWER LIMB SNOMED Code(s): 22758071649570482 Plan: 1patient presented hospital with generalized weakness increasing shortness of breath patient also have diffuse swelling to the right lower extremity and erythema concerning for cellulitis likely from gram-positive skin vahid 2-patient did have resolution of fever, white count is normal and right lower extremity swelling redness has decreased intensity 3patient has shown clinical improvement with cefazolin finishing therapy with oral Keflex on discharge, discussed with admitting team Dictation was produced using [employer] dictation software. please excuse any gramm atical, word or spelling errors. Time with Patient: Less than 30
[2024-05-03] MEDS ORDERED: BUMETANIDE 1 MG TAB PO SCH (09:00)
--- NOTE | 2024-05-03 17:11 | CDI ---
Documentation Clarification Form Date: 05/03/2024 04:52:12 PM From: Paty Dinh Phone: Admit Date: 04/23/2024 03:30:00 PM Patient Name: Stephanie Mead Visit Number: [id number] Discharge Date: 04/30/2024 06:40:00 PM ATTENTION: The Clinical Documentation Specialists (CDI) and [facility] Coding Staff appreciate your assistance in clarifying documentation. Please respond to the clarification below the line at the bottom and electronically sign. The CDI & [facility] Coding staff will review the response and follow-up if needed. Please note: Queries are made part of the Legal Health Record. If you have any questions, please contact the author of this message via ITS. Doctor/Provider: Jos Kim Your patient has a POC Glucose 232. Please clarify if there is an additional diagnosis and/or clinical significance related to this value. History/Risk Factors: 48yo F, AH/HRF on O2, ACDHF, RLL cellulitis, NSTEMI II, hyperkalemia, IDDMII PVD sp AKA, OAH, hypothyroidism, HLD, BPD, former smoker Home Meds: Insulin Glargine [Lantus Vial] 10 unit SQ HS Clinical indicators: Glucose: 04/23 126 04/24 101-136 04/25 120-127 04/26 128-169 04/27 112-118 04/28 132-232 04/29 118-203 04/30 101- 147 Treatment: Novolog, Levemir, Humulin Is there an additional diagnosis and/or clinical significance related to the above lab result/information? [ x] Type 2 diabetes mellitus with hyperglycemia [ ] No additional diagnosis/Not clinically significant [ ] Other, please specify [ ] Unable to determine (Template Last Revised: June 2020) MTDD
== END 2024-04-30 18:40 | DRG 194 ==
LOC: EC 13:27 → 3SCARD 15:30
PROVIDERS: ADMIT Internal Medicine; ATTEND Internal Medicine
PROC: 5A09357 Assistance with Respiratory Ventilation, Less than 24 Consecutive Hours, Continuous Positive Airway Pressure (ICD-10-PCS; principal; 2024-04-23)
PROC: 3E0G76Z Introduction of Nutritional Substance into Upper GI, Via Natural or Artificial Opening (ICD-10-PCS; 2024-04-28)
DX: I50.33 Acute on chronic diastolic (congestive) heart failure (principal); J96.21 Acute and chronic respiratory failure with hypoxia; J96.22 Acute and chronic respiratory failure with hypercapnia; I21.A1 Myocardial infarction type 2; E66.2 Morbid (severe) obesity with alveolar hypoventilation; L03.115 Cellulitis of right lower limb; E11.51 Type 2 diabetes mellitus with diabetic peripheral angiopathy without gangrene; Z89.612 Acquired absence of left leg above knee; F31.9 Bipolar disorder, unspecified; I95.9 Hypotension, unspecified; Z79.4 Long term (current) use of insulin; E11.65 Type 2 diabetes mellitus with hyperglycemia; Z99.81 Dependence on supplemental oxygen; K76.0 Fatty (change of) liver, not elsewhere classified; D53.9 Nutritional anemia, unspecified; E03.9 Hypothyroidism, unspecified; E87.5 Hyperkalemia; E78.5 Hyperlipidemia, unspecified; D75.89 Other specified diseases of blood and blood-forming organs; R32 Unspecified urinary incontinence; Z79.82 Long term (current) use of aspirin; Z79.890 Hormone replacement therapy; Z74.01 Bed confinement status; Z87.891 Personal history of nicotine dependence; Z79.899 Other long term (current) drug therapy
CPT/HCPCS: 36415; 71045; 71275; 80048; 80053; 82803; 83036; 83605; 83735; 83880; 84132; 84145; 84484; 85025; 85379; 85610; 85652; 85730; 86140; 87040; 87636; 93005; 93308; 94640; 94660; 94760; 96361; 96365; 96366; 96367; 96375; 96376; 99291